=== PATIENT | male | born 1955 | race Caucasian/White ===

== ENCOUNTER 2019-12-15 07:14 | Outpatient (CLI) | payer MEDICARE, OTHER, SELFPAY ==
--- NOTE | ~2019-12-15 | XR_ITS ---
EXAMINATION: XR shoulder RT min 2V DATE: 12/15/2019 07:44 INDICATION: Right arm pain post fall TECHNIQUE: AP internally and externally rotated, AP oblique externally rotated and axillary views of the right shoulder were obtained. COMPARISON: None FINDINGS: Normal alignment. No fracture.Mild glenohumeral osteoarthritis with minimal nonuniform joint space n arrowing but with small marginal osteophytes along the anteroinferior and posterosuperior glenoid. Mi ld acromioclavicular osteoarthritis. Small heterotopic ossicle at the lesser tuberosity insertion of the distal subscapularis tendon. Visualized portions of the lungs are clear. IMPRESSION: No acute osseous abnormality. Reviewed, dictated and finalized at location A. 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
== END 2019-12-15 07:15 | disposition home or self-care (01) ==
PROVIDERS: PCP Internal Medicine; Visit Provider Internal Medicine
DX: M79.601 Pain in right arm (principal)
CPT/HCPCS: 73030

== ENCOUNTER 2019-12-30 00:17 | Outpatient (CLI) | payer MEDICARE, OTHER, SELFPAY ==
[2019-12-30 19:24] LABS: SARS-CoV-2 RNA PCR Negative
== END 2019-12-30 00:18 | disposition home or self-care (01) ==
LOC: ANHCOVIDDT 00:17
PROVIDERS: PCP Internal Medicine; Visit Provider Internal Medicine Critical Care Medicine
DX: Z20.828 Contact with and (suspected) exposure to other viral communicable diseases (principal)
CPT/HCPCS: 87635; C9803; U0003

== ENCOUNTER 2020-01-02 08:50 | Outpatient (CLI) | payer MEDICARE, OTHER, SELFPAY ==
--- NOTE | 2020-02-08 11:37 | WPDSLEEPSTUD ---
Sleep Study Date of Study: 01/02/20 Ordering Provider: Myles Osorio DO Interpreting Physician: Lali Canseco MD Sleep Study Type: Split Polysomnogram Height: 1.78 m Weight: 106.141 kg Body Mass Index: 33.5 Neck Circumference: 48.26 cm [place]: 14 Reason for Sleep Study has CHEMA, machine broke, split night study to re-qualify for treatment Sleep History Bebeto Abrams us a 64 year old man with a history of obstructive sleep apnea, on treatment, and his machine broke. A prior split night study 01/10/2015 with a BMI of 34.4 showed moderate obstructive sleep apnea with an AHI of 17.4, snoring and multiple oxygen desaturations. Optimal pressure at that time was 7 cm. He has daytime sleepiness, loud snoring, rare breathing problmes at night reported to him by others. Occasionally sweats excessively at night, occasionally notices his heart pounding at night. [facility] Past Medical History Medical History (Updated 02/08/20 @ 12:12 by Lali Canseco MD) Essential (primary) hypertension Gastro-esophageal reflux disease without esophagitis Obstructive sleep apnea (~2014) Other hyperlipidemia Sleep apnea in adult Family History Family History Father Cerebrovascular accident Family history of diabetes mellitus in first degree relative Family history of heart disease in male family member before age 55 Mother Family history of diabetes mellitus in first degree relative Other Hypertension Social History Social History Smoking status: Former smoker Second hand tobacco smoke exposure: No Smoking end date: 02/09/02 Alcohol intake: current Medications Home Medications Medication Instructions Recorded Confirmed Type aspirin 81 mg tablet,delayed 81 mg PO DAILY 02/01/19 12/06/19 History release dulaglutide 1.5 mg/0.5 mL 0.5 mg SUB-Q WEEKLY ml 02/01/19 12/06/19 History subcutaneous pen injector hydrochlorothiazide 12.5 mg tablet 12.5 mg PO DAILY 02/01/19 12/06/19 History hydrocodone 5 mg-acetaminophen 325 1 tablet PO Q6H PRN 02/01/19 History mg tablet icosapent ethyl 1 gram capsule 1 gm PO BID cap 02/01/19 12/06/19 History insulin lispro 100 unit/mL See Rx Instructions SUB-Q ONCE 02/01/19 12/06/19 History subcutaneous pen lisinopril 40 mg tablet 40 mg PO DAILY 02/01/19 12/06/19 History lorazepam 0.5 mg tablet 0.5 mg PO DAILY PRN 02/01/19 12/06/19 History metformin 500 mg tablet 1,000 mg PO BID tablet 02/01/19 12/06/19 History nabumetone 750 mg tablet 750 mg PO BID 02/01/19 History scopolamine base 1 mg over 3 days 1 patch TRANSDERM Q3D PRN 02/01/19 12/06/19 History transdermal patch simvastatin 40 mg tablet 40 mg PO DAILY 02/01/19 12/06/19 History hydrocodone 5 mg-acetaminophen 325 1 tablet PO Q12H PRN #20 tablet 02/07/19 12/06/19 Rx mg tablet amlodipine 5 mg tablet 5 mg PO DAILY #90 tablet 01/16/20 Rx pantoprazole 40 mg tablet,delayed 40 mg PO QAM #90 tablet 01/16/20 Rx release Sleep Procedure This test was performed using the [employer] multiple channel system including EOG, EEG, submental EMG, EKG, nasal and oral airflow using thermistors and nasal pressure sensors, chest and abdominal belts for body position data, and pulse oximetry. Video monitoring was also performed. The study was scored using CMS guidelines. After the baseline portion the patient met criteria for a titration. CPAP was started using a medium Airfit F20 full face mask and a heated humidifier. Sleep Architecture Baseline Recording time was 150.2 minutes. Sleep time was 128 minutes. Sleep efficiency was 85.2%. Sleep latency was 9.9 minutes, REM latency is 94 minutes. He woke 9 times and slept 12.3 minutes awake after sleep onset. He had 12.1% stage I sleep, 84% stage II sleep, no stage II sleep and 3.9% stage REM. He spent 10.2% of the baseline portion in the supine position. Titration The recording time was
[2020-02-08 11:58] VITALS: BMI 33.5
--- NOTE | 2020-02-20 16:24 | P.SLEEP_ITS ---
Sleep Study Date of Study: 01/02/20 Ordering Provider: Myles Osorio DO Interpreting Physician: Lali Canseco MD Sleep Study Type: Split Polysomnogram Height: 1.78 m Weight: 106.141 kg Body Mass Index: 33.5 Neck Circumference: 48.26 cm [place]: 14 Reason for Sleep Study CHEMA Sleep History Bebeto Abrams is a 64 year-old man with PMFSH Past Medical History Medical History (Updated 02/08/20 @ 12:12 by Lali Canseco MD) Essential (primary) hypertension Gastro-esophageal reflux disease without esophagitis Obstructive sleep apnea (~2014) Other hyperlipidemia Sleep apnea in adult Family History Family History Father Cerebrovascular accident Family history of diabetes mellitus in first degree relative Family history of heart disease in male family member before age 55 Mother Family history of diabetes mellitus in first degree relative Other Hypertension Social History Social History Smoking status: Former smoker Second hand tobacco smoke exposure: No Smoking end date: 02/09/02 Alcohol intake: current Medications Home Medications Medication Instructions Recorded Confirmed Type aspirin 81 mg tablet,delayed 81 mg PO DAILY 02/01/19 12/06/19 History release dulaglutide 1.5 mg/0.5 mL 0.5 mg SUB-Q WEEKLY ml 02/01/19 12/06/19 History subcutaneous pen injector hydrochlorothiazide 12.5 mg tablet 12.5 mg PO DAILY 02/01/19 12/06/19 History hydrocodone 5 mg-acetaminophen 325 1 tablet PO Q6H PRN 02/01/19 History mg tablet icosapent ethyl 1 gram capsule 1 gm PO BID cap 02/01/19 12/06/19 History insulin lispro 100 unit/mL See Rx Instructions SUB-Q ONCE 02/01/19 12/06/19 History subcutaneous pen lisinopril 40 mg tablet 40 mg PO DAILY 02/01/19 12/06/19 History lorazepam 0.5 mg tablet 0.5 mg PO DAILY PRN 02/01/19 12/06/19 History metformin 500 mg tablet 1,000 mg PO BID tablet 02/01/19 12/06/19 History nabumetone 750 mg tablet 750 mg PO BID 02/01/19 History scopolamine base 1 mg over 3 days 1 patch TRANSDERM Q3D PRN 02/01/19 12/06/19 History transdermal patch simvastatin 40 mg tablet 40 mg PO DAILY 02/01/19 12/06/19 History hydrocodone 5 mg-acetaminophen 325 1 tablet PO Q12H PRN #20 tablet 02/07/19 12/06/19 Rx mg tablet amlodipine 5 mg tablet 5 mg PO DAILY #90 tablet 01/16/20 Rx pantoprazole 40 mg tablet,delayed 40 mg PO QAM #90 tablet 01/16/20 Rx release Sleep Procedure This test was performed using the [employer] multiple channel system including EOG, EEG, submental EMG, EKG, nasal and oral airflow using thermistors and nasal pressure sensors, chest and abdominal belts for body position data, and pulse oximetry. Video monitoring was also performed. The study was scored using CMS guidelines. After the baseline portion the patient met criteria for a titration. Sleep Architecture Baseline Titration Respiratory Analysis Baseline Titration Periodic Limb Movements Baseline Titration Oximetry Data Baseline Titration EEG Profile EEG was unremarkable, no evidence of seizures.
== END 2020-01-02 08:51 | disposition home or self-care (01) ==
LOC: ANHCSM 08:51
PROVIDERS: PCP Internal Medicine; Visit Provider Internal Medicine
DX: G47.33 Obstructive sleep apnea (adult) (pediatric) (principal)
CPT/HCPCS: 95811

== ENCOUNTER 2020-03-08 10:54 | Outpatient (CLI) | payer MEDICARE, SELFPAY ==
--- NOTE | 2020-03-08 11:30 | NEURO_ITS ---
Impression: # Complains of numbness of left hand. Insulin dependent diabetic for over 10 years. # Severe left Carpal Tunnel Syndrome. # No ulnar neuropathy. # Normal needle/EMG exam. Nerve Conduction Studies Anti Sensory Summary Table Stim Site NR Peak (ms) P-T Amp (?V) Site1 Site2 Delta-P (ms) Dist (cm) Jimbo (m/s) Left Median Anti Sensory (2-3nd Digit) NO RESPONSE Wrist NR Wrist 2-3nd Digit 14.0 Wrist 7.3 26.6 Wrist 2-3nd Digit 14.0 Left Radial Anti Sensory (Base 1st Digit) Wrist 2.7 25.9 Wrist Base 1st Digit 2.7 0.0 Left Ulnar Anti Sensory (5th Digit) Wrist 2.6 13.8 Wrist 5th Digit 2.6 14.0 54 Motor Summary Table Stim Site NR Onset (ms) O-P Amp (mV) Site1 Site2 Delta-0 (ms) Dist (cm) Jimbo (m/s) Left Median Motor (Abd Poll Brev) Wrist 10.4 1.1 Elbow Wrist 5.3 33.0 62 Elbow 15.7 2.5 Left Ulnar Motor (Abd Dig Minimi) Wrist 2.7 5.4 A Elbow Wrist 5.5 33.0 60 A Elbow 8.2 4.5 F Wave Studies NR F-Lat (ms) L-R F-Lat (ms) Left Median (Mrkrs) (Abd Poll Brev) 35.67 Left Ulnar (Mrkrs) (Abd Dig Min) 30.08 EMG Side Muscle Nerve Root Ins Act Fibs Amp Dur Recrt Comment Left 1stDorInt Ulnar C8-T1 Nml Nml Nml Nml Nml Left Ext Indicis Radial (Post Int) C7-8 Nml Nml Nml Nml Nml Left Ext Digitorum Radial (Post Int) C7-8 Nml Nml Nml Nml Nml Left BrachioRad Radial C5-6 Nml Nml Nml Nml Nml Left PronatorTeres Median C6-7 Nml Nml Nml Nml Nml Left Abd Poll Brev Median C8-T1 Nml Nml Nml Nml Nml MTDD
== END 2020-03-08 10:55 | disposition home or self-care (01) ==
PROVIDERS: Family Provider Internal Medicine; PCP Internal Medicine; Visit Provider Internal Medicine
DX: R20.0 Anesthesia of skin (principal); G56.02 Carpal tunnel syndrome, left upper limb
CPT/HCPCS: 95886; 95909

== ENCOUNTER 2021-07-09 13:57 | Outpatient (CLI) | payer MEDICARE, SELFPAY ==
--- NOTE | ~2021-07-09 | XR_ITS ---
EXAMINATION: XR ankle RT min 3V DATE: 07/09/2021 14:12 INDICATION: Right ankle pain. TECHNIQUE: 4 views of right ankle were obtained. COMPARISON: Right ankle radiographs 04/16/2005 FINDINGS: Bone alignment is normal. No fracture. There is mild osteoarthritis of the ankle joint and some of the midfoot joints. There are enthesophytes at the posterior and plantar aspects of calcaneal tuberosity. There is medial ankle soft tissue swelling. IMPRESSION: 1. Mild polyarticular osteoarthritis. Reviewed, dictated and finalized at location A.
== END 2021-07-09 13:58 | disposition home or self-care (01) ==
LOC: ANHIMG 14:00
PROVIDERS: PCP Internal Medicine; Visit Provider Internal Medicine
DX: M19.071 Primary osteoarthritis, right ankle and foot (principal)
CPT/HCPCS: 73610

== ENCOUNTER 2021-08-30 06:39 | Emergency (ER) | payer MEDICARE, SELFPAY ==
--- NOTE | ~2021-08-30 | CT_ITS ---
EXAMINATION: CT abdomen pelvis wo con DATE: 08/30/2021 07:41 INDICATION: Right flank pain and abdominal pain. TECHNIQUE: Computed tomography (CT) of the abdomen and pelvis was performed without intravenous contr ast. Automated exposure control and iterative reconstruction technique were employed. The dose-length product was 1282.06 mGy-cm. COMPARISON: 10/17/2015 FINDINGS: Mild dependent atelectasis in bilateral lower lobes and discoid atelectasis in the lingula. Heart siz e is normal. Atherosclerotic coronary artery calcifications. No pericardial or pleural effusion. Diff use hepatic steatosis with focal sparing along the gallbladder fossa. Gallbladder, spleen, pancreas a nd bilateral adrenal glands are normal. Left renal cysts the largest measuring 2.3 cm. No urolithiasi s or hydronephrosis. Bowels including the appendix are normal. Bladder is normal. Prostatomegaly tom uring 4.7 x 3.8 cm. No free intraperitoneal gas or fluid. No pathologically enlarged abdominal or pel samir lymphadenopathy. There are bridging osteophytes at multiple levels in the spine, consistent with diffuse idiopathic skeletal hyperostosis (DISH). IMPRESSION: 1. No acute intra-abdominal/pelvic process. Specifically normal appendix and gallbladder and no uroli thiasis. Reviewed, dictated and finalized at location A. IMPRESSION: 1. No acute intra-abdominal/pelvic process. Specifically normal appendix and ga llbladder and no urolithiasis.
[2021-08-30 06:42] VITALS: BP 152/68; PULSE 85; RESP 20; TEMP 37.2; O2SAT 98
[2021-08-30 06:54] LABS: Basophils Percent Auto 0.4 % (0.2-1.2); Eosinophils Absolute Auto 0.8 K/mm3 (0-0.3); Eosinophils Percent Auto 7.9 % (0-4.4); Hematocrit 43.3 % (42.0-52.0); Hemoglobin 14.4 g/dL (14.0-18.0); Immature Granulocyte Absolute 0.09 K/mm3 (0.00-0.031); Lymphocytes Absolute Auto 1.44 K/mm3 (0.9-3.2); Lymphocytes Percent Auto 15.2 % (18.3-44.2); Mean Corpuscular HGB Conc 33.3 g/dl (32-36); Mean Corpuscular Hemoglobin 29.6 pg (26-34); Mean Corpuscular Volume 88.9 fl (80-100); Mean Platelet Volume 8.5 fl (7.4-10.4); Monocytes Absolute Auto 0.4 K/mm3 (0.1-0.6); Monocytes Percent Auto 3.7 % (2.6-8.5); Neutrophils Absolute Auto 6.8 K/mm3 (1.3-6.7); Neutrophils Percent Auto 71.8 % (45.5-73.1); Platelet Count Result 234 k/mm3 (150-375); Red Blood Count 4.87 M/mm3 (4.6-6.20); Red Cell Distribution Width 14.2 % (11.5-14.5); White Blood Count 9.5 K/mm3 (4.5-10.0)
[2021-08-30 07:05] LABS: Alanine Aminotransferase 27 U/L (6-50); Alkaline Phosphatase 65 U/L (38-126); Anion Gap 10 mmol/L (8-16); Aspartate Amino Transferase 26 U/L (17-59); Bilirubin,Total 0.4 mg/dL (0.2-1.3); Blood Urea Nitrogen 20 mg/dL (9-20); Calcium 9.2 mg/dL (8.4-10.2); Carbon Dioxide 25 mmol/L (22-30); Chloride 106 mmol/L (98-107); Estimated Glomerular Filt Rate > 60; Glucose 115 mg/dL (65-110); Sodium 141 mmol/L (137-145)
[2021-08-30 07:06] LABS: Appearance Urine Clear (Clear); Bilirubin Urine Negative (Negative); Color Urine Yellow (Yellow); Glucose Urine UA 1+ mg/dL (Negative); Ketones Urine Negative (Negative); Leukocyte Esterase Ur Negative LEU/UL (Negative); Nitrate Urine Negative (Negative); Protein Urine Negative (Negative); Urobilinogen Urine 0.2 mg/dL (<2.0)
[2021-08-30 07:21] LABS: Add Urine Microscopic? YES; Bacteria Urine Trace /hpf; Blood Urine Trace-Intact (Negative); Mucus Urine Rare /lpf; RBC Urine 0-2 /hpf (0-2); Squamous Epithelial Cell Urine Rare /hpf (Few); WBC Urine 0-3 /hpf
[2021-08-30 07:31] VITALS: BP 108/58; PULSE 80; RESP 18; O2SAT 96
--- NOTE | 2021-08-30 08:43 | ED.ABDPAIN ---
HPI - Abdominal Pain General Chief Complaint: Abdominal Pain Stated Complaint: rt flank pain Time Seen by Provider: 08/30/21 07:03 Source: patient and RN notes reviewed Mode of arrival: ambulatory Limitations: no limitations History of Present Illness HPI narrative: This is a 65 year old male with history of DM who presents for evaluation of right flank pain. Patient states he developed right flank pain 1 month ago when he went out of town. He states his pain has been constant, and it feels deep . It is located in his right lower back and radiates to right mid abdomen. Seems worse with position. He was evaluated out of town, and he was told he had bladder infection due to microscopic blood in urine. He also reports fatty liver and enlarge spleen. He denies urinary complaints, fever, chills, nausea or vomiting. He has not taken any medication for his pain. Related Data Home Medications Medication Instructions Recorded Confirmed aspirin 81 mg tablet,delayed 81 mg PO DAILY 02/01/19 04/17/21 release (Adult Low Dose Aspirin) dulaglutide 1.5 mg/0.5 mL 0.5 mg subcut WEEKLY 02/01/19 04/17/21 subcutaneous pen injector (Trulicity) hydrochlorothiazide 12.5 mg tablet 12.5 mg PO DAILY 02/01/19 04/17/21 icosapent ethyl 1 gram capsule 1 gm PO BID 02/01/19 04/17/21 (Vascepa) insulin lispro 100 unit/mL See Rx Instructions subcut ONCE 02/01/19 04/17/21 subcutaneous pen (Humalog KwikPen (U-100) Insulin) lisinopril 40 mg tablet 40 mg PO DAILY 02/01/19 04/17/21 lorazepam 0.5 mg tablet 0.5 mg PO DAILY PRN 02/01/19 04/17/21 metformin 500 mg tablet 1,000 mg PO BID 02/01/19 04/17/21 scopolamine base 1 mg over 3 days 1 patch transdermal Q3D PRN 02/01/19 04/17/21 transdermal patch (Transderm-Scop) simvastatin 40 mg tablet 40 mg PO DAILY 02/01/19 04/17/21 Allergies Allergy/AdvReac Type Severity Reaction Status Date / Time No Known Allergies Allergy Verified 08/30/21 06:48 Review of Systems Review of Systems: CONSTITUTIONAL: Denies fever, chills, or sweats. EYES: Denies visual changes, redness, or discharge. ENT: Denies rhinorrhea, congestion, sore throat, or otalgia. CARDIOVASCULAR: Denies chest pain, palpitations, or edema. RESPIRATORY: Denies cough or dyspnea. GASTROINTESTINAL: reports abdominal pain; denies nausea, vomiting, or diarrhea. GENITOURINARY: Denies dysuria or hematuria. SKIN: Denies rash or itching. MUSCULOSKELETAL: reports back pain; denies joint pain, or myalgia. NEUROLOGIC: Denies headache, numbness, or weakness. PSYCHIATRIC: Denies anxiety or depression. All systems reviewed & are unremarkable except as noted in HPI and below PMFSH Past Medical History Medical History Essential (primary) hypertension Gastro-esophageal reflux disease without esophagitis Obstructive sleep apnea (~2014) Other hyperlipidemia Sleep apnea in adult Family History Family History Father Cerebrovascular accident Family history of diabetes mellitus in first degree relative Family history of heart disease in male family member before age 55 Mother Family history of diabetes mellitus in first degree relative Other Hypertension Social History Social History Smoking status: Former smoker Second hand tobacco smoke exposure: No Smoking end date: 02/09/02 Alcohol intake: current Exam Const: Nutritional Appearance: well nourished and obese Orientation/consciousness: patient oriented x3 Limitations: no limitations HENMT: Head: normal to inspection Eyes: EOM: EOMs intact bilaterally Neck: Neck: normal visual inspection Chest: Chest palpation & inspection: normal inspection of the chest Resp: Effort & Inspection: normal respiratory effort Auscultation: clear to auscultation bilaterally Cardio: Rate: regular rate Rhythm: regular rh
[2021-08-30 09:22] VITALS: BP 118/56; PULSE 77; RESP 19; O2SAT 97
== END 2021-08-30 09:23 | disposition home or self-care (01) ==
PROVIDERS: Emergency Medicine; Emergency Provider General Practice; PCP Internal Medicine
DX: R10.9 Unspecified abdominal pain (principal); Z79.82 Long term (current) use of aspirin; Z79.4 Long term (current) use of insulin; Z79.84 Long term (current) use of oral hypoglycemic drugs; I10 Essential (primary) hypertension; K21.9 Gastro-esophageal reflux disease without esophagitis; G47.33 Obstructive sleep apnea (adult) (pediatric); E78.49 Other hyperlipidemia; G47.30 Sleep apnea, unspecified; Z87.891 Personal history of nicotine dependence
CPT/HCPCS: 36415; 74176; 80053; 81001; 85025; 96365; 99284; J0131

== ENCOUNTER 2024-05-12 00:44 | Day surgery (SDC) | payer MEDICARE, SELFPAY ==
[2024-05-09 12:30] VITALS: BMI 34.0
--- OUTSIDE RECORDS SUMMARY | 2024-05-12 00:46 | XMS_ITS | Encounter Summary ---
Author Organization [facility] Address [address] [place] [address] Care Team Providers Care Side Guider Name Role Phone Myles Osorio MD Primary Care Provider [phone] Encounter Details Date Type Department Care Team (Late st Contact Info) Description 03/21/2020 Prep for Procedure [facility] [address] [place], [place] [id number] Cristino Cox MD [address] [place] [address], [address] [place], [place] [id number] Social History Tobacco Use Types Packs/Day Years Used Date Smoking Tobacco: Former Cigarettes Q uit: 1989 Sex and Gender Information Value Date Recorded Sex Assigned at Not on file Legal Sex Male 6:45 PM CDT Gender Identity Not on file Sexual Orientation Not on file COVID-19 Exposure Response Date Recorded In the last month, have you been in contact with someone who was confirmed or suspected to have Coronavirus / COVID-19? No / Unsure 03/21/2020 8:11 AM DRUG SAFETY SCIENTIST documented as of this encounter Plan of Treatment Not on file documented as of this encounter Results * PRE-SURGICAL/PRE-PROCEDURE CORONAVIRUS (COVID 19) (03/25/2020 8:57 AM DRUG SAFETY SCIENTIST) CORONAVIRUS SARS COV 2 PCR (RESP) NOT DETECTED NOT DETECTED 03/26/2020 2:31 PM DRUG SAFETY SCIENTIST [facility] Comment: A Not Detected (negative) test result for this test means that SARS- CoV-2 RNA was not present in the specimen above the limit of detection. A negative result does not rule out the possibility of COVID-19 and should not be used as the sole basis for treatment or patient management decisions. If COVID-19 is still suspected, based on exposure history together with other clinical findings, re-testing should be considered in consultation with public health authorities. Laboratory test results should always be considered in the context of clinical observations and epidemiological data in making a final diagnosis and patient management decisions. Please review the Fact Sheets and FDA authorized labeling available for health care providers and patients using the following websites: [email or web address]/fact-[email or web address]/ fact-sheet2 This test has been authorized by the FDA under an Emergency Use Authorization (EUA) for use by authorized laboratories. Due to the current public health emergency, [facility] is receiving a high volume of samples from a wide variety of swabs and media for COVID-19 testing. In order to serve patients during this public health crisis, samples from appropriate clinical sources are being tested. Negative test results derived from specimens received in non-commercially manufactured viral collection and transport media, or in media and sample collection kits not yet authorized by FDA for COVID-19 testing should be cautiously evaluated and the patient potentially subjected to extra precautions such as additional clinical monitoring, including collection of an additional specimen. Methodology: Nucleic Acid Amplification Test (NAAT) includes RT-PCR or TMA Additional information about COVID-19 can be found at the [facility] website: [email or web address]/[email or web address]. Test performed at [facility] [id number] [place] [id number] Director: BALAJI THURSTON DO,MPH FIRST TEST NO 03/25/2020 8:49 AM [facility] EMPLOYED IN HEALTHCARE NO 03/25/2020 8:49 AM DRUG SAFETY SCIENTIST [facility] SYMPTOMATIC DEFINED BY CDC NO 03/25/2020 8:49 AM [facility] DATE OF SYMPTOM ONSET UNKNOWN 03/25/2020 9:48 AM [facility] HOSPITALIZATION STATUS NO 03/25/2020 8:49 AM DRUG SAFETY SCIENTIST [facility] PATIENT IN ICU NO 03/25/2020 8:49 AM DRUG SAFETY SCIENTIST [facility] RESIDENT OF CONGREGATE CARE NO 03/25/2020 8:49 AM DRUG SAFETY SCIENTIST [facility] NO 03/25/2020 9:48 AM DRUG SAFETY SCIENTIST [facility] PATIENT'S RACE WHITE OR 03/25/2020 8:49 AM DRUG SAFETY SCIENTIST [facility] ETHNICITY NONHISPANIC 03/25/2020 8:49 AM DRUG SAFETY SCIENTIST [facility] SOURCE (QST) NASOPHARYNGEAL SWAB 03/25/2020 8:49 AM DRUG SAFETY SCIENTIST [facility] NASOPHARYNGEAL SWAB / Unknown 03/25/2020 8:57 AM DRUG SAFETY SCIENTIST us Cristino Cox MD MICROBIOLOGY - GENERAL ORDERABLE S Final Result Performing Organization Address City/State/[facility] Co de Phone Number [facility] [address] [place] [address], [place] [address], documented in this encounter Visit Diagnoses Diagnosis Pre-op testing- Primary Preoperative examination, unspecified documented in this encounter Additional Health Concerns Infection Onset Date Last Indicated Resolved Time COVID-19 Rule Out 03/25/2020 03/25/2020 03/26/2020 2:31 PM DRUG SAFETY SCIENTIST documented as of this encounter Care Teams Side Guider Relationship Specialty Start Date End Date Myles Osorio MD [address] [place] [address] [place] [address] PCP - General INTERNAL MEDICINE 01/17/20 documented as of this encounter
--- OUTSIDE RECORDS SUMMARY | 2024-05-12 00:46 | XMS_ITS | Clinical Summary ---
Author Organization [facility] Address [address] [place] [address] Care Team Providers Care [employer] Name Role Phone Myles Osorio MD Primary Care Provider [phone] Allergies No known active allergies Medications Continuous Blood Gluc Sensor (DEXCOM G6 SENSOR) Misc Change every 10 days 10/24/2019 Active Continuous Blood Gluc Transmit (DEXCOM G6 TRANSMITTER) Misc Use as directed to monitor glucose 10/24/2019 Active icosapent ethyl (VASCEPA) 1 G capsule TAKE 2 CAPSULES BY MOUTH 2 TIMES DAILY 12/14/2019 Active hydroCHLOROthia zide 12.5 MG tablet TAKE ONE TABLET BY MOUTH EVERY DAY 09/26/2019 Active Insulin Disposable Pump (OMNIPOD DASH 5 PACK PODS) Misc Change pod every 1.5 days 10/10/2019 Active simvastatin 40 MG tablet TAKE ONE TABLET BY MOUTH DAILY 10/09/2011 Active metFORMIN ER 500 MG 24 hr tablet TAKE 2 TABLETS BY MOUTH TWICE DAILY 10/09/2011 Active lisinopril 40 MG tablet TAKE 1 TABLET BY MOUTH DAILY 09/26/2019 Active pantoprazole EC 40 MG tablet Take 1 tablet (40 mg total) by mouth daily. Active amLODIPine 5 MG tablet Take 2 tablets (10 mg total) by mouth daily. Active aspirin EC (ASPIRIN EC) 81 MG tablet Take 1 tablet (81 mg total) by mouth daily. Active allopurinol (ZYLOPRIM) 300 MG tablet Take 1 tablet (300 mg total) by mouth daily. Active dapagliflozin (FARXIGA) 10 MG tablet Take 1 tablet (10 mg total) by mouth daily. Active nitrofurantoin, macrocrystal-mo nohydrate, (MACROBID) 100 MG capsule Take 1 capsule (100 mg total) by mouth 2 (two) times daily. Active tirzepatide (MOUNJARO) 5 MG/0.5ML injectionIndica tions:Diabetes Mellitus Indications: Diabetes Active nabumetone (RELAFEN) 750 MG tablet Take 1 tablet (750 mg total) by mouth 2 (two) times daily. Active ibuprofen (MOTRIN) 600 MG tablet Take 1 tablet (600 mg total) by mouth every 6 (six) hours as needed for Pain. 30 tablet 07/01/2023 Active Active Problems Problem Noted Date Diagnosed Date Right shoulder pain 01/17/2020 Social History Tobacco Use Types Packs/Day Years Used Date Smoking Tobacco: Former Cigarettes Q uit: 1989 Smokeless Tobacco: Never Sex and Gender Information Value Date Recorded Sex Assigned at Not on file Legal Sex Male 6:45 PM CDT Gender Identity Not on file Sexual Orientation Not on file Last Filed Vital Signs Vital Sign Reading Time Taken Comments Blood Pressure 127/55 07/01/2023 10:00 PM CDT Pulse 83 07/01/2023 8:36 PM CDT Temperature 36.3 C (97.4 F) 07/01/2023 8:36 PM CDT Respiratory Rate 18 07/01/2023 8:36 PM CDT Oxygen Saturation 92% 07/01/2023 10:00 PM CDT Inhaled Oxygen Concentration - - Weight 108.9 kg (240 lb) 07/01/2023 8:36 PM CDT Height 175.3 cm (5' 9 ) 07/01/2023 8:36 PM CDT Body Mass Index 35.44 07/01/2023 8:36 PM CDT Plan of Treatment Health Maintenance Due Date Last Done Comments Colorectal Cancer Screening Colonoscopy (10 Years) 1955 Hepatitis C 1972 AAA SCREENING 12/23/2019 Annual Medicare Wellness Visit 12/23/2019 COVID-19 Vaccine ( season) 2023 01/07/2023, 12/11/2021, 12/07/2020, Additional history exists Influenza Adult (#1) 2023 02/09/2022, 01/09/2021, 01/11/2020 DTaP, Tdap and Td Vaccines (2 - Td or Tdap) 12/12/2031 12/11/2021 Zoster Vaccines Completed 07/04/2020, 02/22/2020 RSV Immunization or 60+ Years Completed 01/07/2023 Pneumococcal Vaccine: 65+ Years Completed 06/15/2023, 01/11/2020 Meningococcal B Vaccine Aged Out No l onger eligible based on patient's age to complete this topic Meningococcal Vaccine Aged Out No ciarra eliana eligible based on patient's age to complete this topic RSV Immunizations Under 20 Months Aged Out No longer eligible based on patient's age to complete this topic Medical Devices Implanted Type [employer] Licensee Device Identifier Shelf Expiration Date Model / Serial / Lot Pump Pump Description:Insulin pump Insurance [facility] Care Teams [employer]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
--- OUTSIDE RECORDS SUMMARY | 2024-05-12 00:46 | XMS_ITS | Referral Summary ---
Author Organization [address] [facility] Address [address] [place] [id number] Care Team Providers Care Wire Taper Name Role Phone Myles Osorio MD Primary Care Provider [phone] Encounters Date Type Department Care Team Description 03/29/2024 Telephone [facility] [address] [id number] Verna Quiles MD from Last 3 Months Allergies No known active allergies Medications aspirin 81 mg tablet Take one by mouth one time per day 0 0 11/11/[address] (PROTONIX) 40 mg EC tablet Take 1 tablet (40 mg total) by mouth daily 1 11/09/19 18 Active DEXCOM G6 TRACK ANNOUNCER misc Use as directed to monitor glucose 1 each 06/09/19 19 Active blood glucose diagnostic (ONETOUCH ULTRA TEST) stripIndications :Type 2 diabetes mellitus with hyperglycemia, with long-term current use of insulin ([facility]) Use to test glucose 3 times daily 300 each 1 08/06/19 19 Active BD ULTRA-FINE MINI PEN NEEDLE 31 gauge x 3/16 needleIndication s:Type 2 diabetes mellitus with hyperglycemia, with long-term current use of insulin (H[facility]) Use with insulin 4 times daily 400 each 1 08/06/19 19 Active lancets (ONETOUCH DELICA LANCETS) 33 gauge miscIndications: Type 2 diabetes mellitus with hyperglycemia, with long-term current use of insulin ([facility]) Use to test glucose 3 times daily 300 each 1 08/06/19 19 Active HYDROcodone-acet aminophen (NORCO) 5-325 mg per tablet 02/08/20 19 Active meloxicam (MOBIC) 15 mg tablet Take 1 tablet (15 mg total) by mouth daily 01/11/20 20 Active amLODIPine (NORVASC) 10 mg tablet Take 1 tablet (10 mg total) by mouth daily 06/07/19 21 Active allopurinoL (ZYLOPRIM) 300 mg tablet 10/30/19 21 Active nabumetone (RELAFEN) 750 mg tablet TAKE 1 TABLET BY MOUTH TWICE A DAY WI8TH FOOD 08/28/19 21 Active BinaxNOW COVID-19 Ag Self Test kit Use as Directed on the Package 12/12/19 22 Active Omnipod Dash Pods, Gen 4, cartridgeIndicat ions:Type 2 diabetes mellitus with hyperglycemia, with long-term current use of insulin ([facility]),Insulin pump status CHANGE POD EVERY 1 AND 1/2 DAYS 60 each 3 04/28/19 24 Active insulin regular U-500 (HumuLIN R U-500) 500 unit/mL CONCENTRATED vial for injection INJECT SUBCUTANEOUSLY UP TO 0.5ML DAILY VIA INSULIN PUMP 60 mL 3 06/15/19 24 Active Farxiga 10 mg tablet TAKE 1 TABLET BY MOUTH DAILY 90 tablet 3 07/02/19 24 Active ibuprofen (ADVIL,MOTRIN) 600 mg tablet Take 1 tablet (600 mg total) by mouth every 6 (six) hours as needed 07/01/19 24 Active ibuprofen (ADVIL,MOTRIN) 600 mg tablet Take by mouth every 6 (six) hours as needed 07/02/19 24 Active nitrofurantoin monohydrate (MACROBID) 100 mg capsule Take 1 capsule (100 mg total) by mouth 2 (two) times a day Active icosapent ethyL (VASCEPA) 1 gram capsule Take 2 capsules (2 g total) by mouth 2 (two) times a day 360 capsule 1 08/05/19 24 Active metFORMIN XR (GLUCOPHAGE XR) 500 mg 24 hr tabletIndication s:Type 2 diabetes mellitus with hyperglycemia, with long-term current use of insulin ([facility]) TAKE 2 TABLETS BY MOUTH TWICE DAILY 360 tablet 3 11/03/19 24 Active Dexcom G6 Sensor deviceIndication s:Type 2 diabetes mellitus with hyperglycemia, with long-term current use of insulin ([facility]) CHANGE EVERY 10 DAYS 9 each 3 11/12/19 24 Active Mounjaro 5 mg/0.5 mL pen injectorIndicati ons:Type 2 diabetes mellitus with hyperglycemia, with long-term current use of insulin ([facility]) INJECT THE CONTENTS OF ONE PEN SUBCUTANEOUSLY WEEKLY DIRECTED 6 mL 3 12/30/19 24 Active LORazepam (ATIVAN) 0.5 mg tablet TAKE 1 TABLET BY MOUTH ONCE DAILY NEEDED FOR ANXIETY 11/19/19 Active methocarbamoL (ROBAXIN) 750 mg tablet TAKE 1 TABLET BY MOUTH 3 TIMES A DAY NEEDED FOR MUSCLE SPASMS 11/18/19 24 Active insulin U-500 syringe-needle 1/2 mL 31 gauge x 15/64 syringeIndicatio ns:Type 2 diabetes mellitus with hyperglycemia, with long-term current use of insulin ([facility]) Use to inject U500 insulin twice daily if pump failure 100 each 3 01/25/20 24 Active blood-glucose transmitter (Dexcom G6 Transmitter) deviceIndication s:Type 2 diabetes mellitus with hyperglycemia, with long-term current use of insulin ([facility]) Change transmitter every 90 days 1 each 3 02/05/20 24 Active hydroCHLOROthiaz vinicio 12.5 mg tabletIndication s:Type 2 diabetes mellitus with hyperglycemia, with long-term current use of insulin ([facility]) TAKE 1 TABLET BY MOUTH DAILY 90 tablet 3 02/16/19 25 Active lisinopriL (PRINIVIL,ZESTRI L) 40 mg tabletIndication s:Type 2 diabetes mellitus with hyperglycemia, with long-term current use of insulin ([facility]) TAKE 1 TABLET BY MOUTH DAILY 90 tablet 3 02/16/19 25 Active simvastatin (ZOCOR) 40 mg tabletIndication s:Type 2 diabetes mellitus with hyperglycemia, with long-term current use of insulin ([facility]) TAKE 1 TABLET BY MOUTH DAILY 90 tablet 3 02/16/19 25 Active Active Problems Problem Noted Date Diagnosed Date Class 2 severe obesity due t o excess calories with serious comorbidity and body mass index (BMI) of 35.0 to 35.9 in adult 12/18/2022 Assessment & Plan (12/18/2022 10:13 AM HANDHOLE MACHINE OPERATOR): Will resume going to gym as he's back/done with traveling. mounjaro 2.mg weekly sent. Discussed healthy diet and importance of regular physical activity (20- 30min/day, 150min/wk). Insulin pump status 12/30/2018 Assessment & Plan (01/25/2024 3:38 PM HANDHOLE MACHINE OPERATOR): Green U500 insulin syringes were sent to [facility] in case of pump failure--start injection 55 units twice daily. May need to adjust dose up/down. Current medications: Metformin XR 1000 mg daily with meals Farxiga 10 mg Mounjaro 5mg weekly Omnipod Dash insulin pump with U500 insulin BR 12a 1.1, 6a 1.3, 6p 1.6 CR 10 CF 35 Target 110 AIT 5 hrs Assessment & Plan (11/02/2023 9:21 AM CDT): No pump setting changes at this time. Assessment & Plan (04/28/2023 9:11 AM CDT): No pump setting changes at this time. Assessment & Plan (12/18/2022 10:13 AM HANDHOLE MACHINE OPERATOR): No pump setting changes at this time. Assessment & Plan (07/01/2022 10:18 AM CDT): No pump setting changes at this time. Set up new Omnipod Dash settings. Assessment & Plan (12/12/2021 11:23 AM CDT): Lower 12a BR to 1.1. Assessment & Plan (11/29/2020 3:58 PM CDT): In case of pump failure and you are off of the pump for more than 12 hours: Start taking : Tresiba 120 units every 24 hours Take Fiasp: 30 units with each meal Assessment & Plan (07/19/2020 3:02 PM CDT): Lower IC to 13 Lower SF to 38 Change AI to 5 Assessment & Plan (10/28/2019 12:23 PM CDT): Increase TD basal to 104.85. Change IC to 6 Assessment & Plan (05/20/2019 11:11 AM CDT): Will try upload on Thursday Assessment & Plan (03/20/2019 11:11 AM HANDHOLE MACHINE OPERATOR): Reduce SF to 18, lower target to 100. Assessment & Plan (12/30/2018 2:39 PM HANDHOLE MACHINE OPERATOR): Insulin pump setting calculations as follows: Basal 4.0 x 24 hour Bolus: IC calculated to 2 but he is now exercising and watching carbs so will change to 10 to start. SF 20 T 120 AI 4 Hyperlipidemia associated with type 2 diabetes edwin mora 06/23/2017 Assessment & Plan (01/25/2024 3:17 PM HANDHOLE MACHINE OPERATOR): Chronic problem. Currently taking Simvastatin 40mg & vascepa 2gm daily. Last lipid panel: 07/30/23 LDL=24, WW=127 Assessment & Plan (11/02/2023 8:56 AM CDT): Chronic problem. Currently taking Simvastatin 40mg & vascepa 2gm daily. Last lipid panel: 07/30/23 LDL=24, RE=323 Assessment & Plan (04/28/2023 9:00 AM CDT): Chronic problem. Currently taking Simvastatin 40mg & vascepa 2gm daily. Assessment & Plan (12/18/2022 10:13 AM HANDHOLE MACHINE OPERATOR): Chronic problem. Currently taking Simvastatin 40mg & vascepa 2gm daily. Assessment & Plan (07/01/2022 9:45 AM CDT): Chronic problem. Improved on current Simvastatin 40mg & vascepa 2gm bid. Last lipid panel: 05/07/21 LDL=24, KI=046. Will update labs today. Verified that he uses [facility]. Aware to check results/results letter in [facility]. Will contact by phone if needed. Assessment & Plan (12/12/2021 11:24 AM CDT): Chronic problem. On statin therapy, no changes. Assessment & Plan (05/07/2021 10:57 AM CDT): With elevated TG Continue Simvastatin and Vascepa Low chol low fat diet, exercise Assessment & Plan (11/29/2020 3:58 PM CDT): Lipid goals , LDL under 80 Continue Simvastatin Assessment & Plan (07/19/2020 3:02 PM CDT): Continue statin and Vascepa Assessment & Plan (01/26/2020 10:19 AM HANDHOLE MACHINE OPERATOR): He will have lipid panel done in next 48 hours fasting to determine if this was spurious result. Assessment & Plan (10/28/2019 12:25 PM CDT): Continue statin and Vascepa. Will check lipid panel today Assessment & Plan (08/02/2019 1:03 PM CDT): Goal of treatment , LDL cholesterol less than 100 ( less than 70 in patients with history of heart attacks and / or strokes ) NonHDL cholesterol ( total cholesterol minus HDL cholesterol ) goal less than 130 ( less than 100 in patients with history of heart attacks and / or strokes ) Low cholesterol, low fat diet was discussed and advised. Daily exercise On statin therapy and Vascepa Assessment & Plan (05/20/2019 11:11 AM CDT): At goal on current medications. Continue statin therapy. Assessment & Plan (03/20/2019 11:11 AM HANDHOLE MACHINE OPERATOR): Trigs elevated. Focus on diet, exercise and glycemic control Assessment & Plan (11/18/2018 10:11 AM CDT): Continue statin therapy. Needs to Improve glycemic control in order to address trigs. Assessment & Plan (06/08/2018 9:50 AM CDT): Goal of treatment , LDL cholesterol less than 100 ( less than 70 in patients with history of heart attacks and / or strokes ) NonHDL cholesterol ( total cholesterol minus HDL cholesterol ) goal less than 130 ( less than 100 in patients with history of heart attacks and / or strokes ) Low cholesterol, low fat diet was discussed and advised. Daily exercise On statin therapy Stop Fenofibrate Start Vascepa Assessment & Plan (11/17/2017 9:34 AM CDT): Goal of treatment , LDL cholesterol less than 100 ( less than 70 in patients with history of heart attacks and / or strokes ) NonHDL cholesterol ( total cholesterol minus HDL cholesterol ) goal less than 130 ( less than 100 in patients with history of heart attacks and / or strokes ) Low cholesterol, low fat diet was discussed and advised. Daily exercise On statin therapy Assessment & Plan (06/23/2017 2:28 PM CDT): Goal of treatment , LDL cholesterol less than 100 ( less than 70 in patients with history of heart attacks and / or strokes ) NonHDL cholesterol ( total cholesterol minus HDL cholesterol ) goal less than 130 ( less than 100 in patients with history of heart attacks and / or strokes ) Low cholesterol, low fat diet was discussed and advised. Daily exercise On statin therapy Carpal tunnel syndrome 01/17/2014 Overview (05/15/2016): Carpal tunnel syndrome Type 2 diabetes mellitus wit h hyperglycemia, with long-term current use of insulin 05/05/2013 Overview (05/16/2016): [facility] Assessment & Plan (01/25/2024 3:39 PM HANDHOLE MACHINE OPERATOR): Chronic problem. A1c at goal but tim slightly from 6.% 11/02/23 to now 6.9% without hypoglycemia. No changes at this time. Green U500 insulin syringes were sent to [facility] in case of pump failure--start injection 55 units twice daily. May need to adjust dose up/down. Current medications: Metformin XR 1000 mg daily with meals Farxiga 10 mg Mounjaro 5mg weekly Omnipod Dash insulin pump with U500 insulin BR 12a 1.1, 6a 1.3, 6p 1.6 CR 10 CF 35 Target 110 AIT 5 hrs UTD on labs. UTD on DM eye exam (04/17/23) Strive for regular exercise (30min most days) and diet (get at least 4-5 servings of fruit and veggies daily, avoid processed foods, increase lean protein intake and decrease carb portions as well as fruit juices, regular soda & desserts). Watch carbs and simple sugars. Check the blood sugar dexcom G6. Check the feet daily for skin breakdown and infection. Assessment & Plan (11/02/2023 9:24 AM CDT): Chronic problem. A1c at goal & improved from 7.1% 07/30/23 to now 6.7% without hypoglycemia. No changes at this time. Current medications: Metformin XR 1000 mg daily with meal Farxiga 10 mg Mounjaro 5mg weekly Omnipod Dash insulin pump with U500 insulin BR 12a 1.1, 6a 1.3, 6p 1.6 CR 10 CF 35 Target 110 AIT 5 hrs UTD on labs. UTD on DM eye exam (04/17/23) Strive for regular exercise (30min most days) and diet (get at least 4-5 servings of fruit and veggies daily, avoid processed foods, increase lean protein intake and decrease carb portions as well as fruit juices, regular soda & desserts). Watch carbs and simple sugars. Check the blood sugar dexcom G6. Check the feet daily for skin breakdown and infection. Assessment & Plan (07/30/2023 10:02 AM CDT): Chronic, with a little higher hemoglobin A1c Emphasized to Mr. Abrams the need for him to bolus with meals, entering carbs Restart exercise program Continue pump at current settings Continue Mounjaro and metformin Assessment & Plan (04/28/2023 9:11 AM CDT): Chronic problem. A1c at goal & improved from 7.2% 12/2022 to now 6.9%. Current medications: Metformin XR 500 mg 2 tabs twice daily with meals Farxiga 10 mg Mounjaro 2.5mg weekly & then increase to 5mg weekly Omnipod with U500 insulin BR 12a 1.1, 6a 1.3, 6p 1.6 CR 10 CF 35 Target 110 AIT 5 hrs UTD on labs. UTD on DM eye exam (04/17/23) Strive for regular exercise (30min most days) and diet (get at least 4-5 servings of fruit and veggies daily, avoid processed foods, increase lean protein intake and decrease carb portions as well as fruit juices, regular soda & desserts). Watch carbs and simple sugars. Check the blood sugar dexcom. Check the feet daily for skin breakdown and infection. Assessment & Plan (12/18/2022 10:13 AM HANDHOLE MACHINE OPERATOR): Chronic problem. A1c tim from 6.5% to 7.2%. has been traveling all summer. Plans to return to gym now that he's back in town. Will switch from Trulicity to Mounjaro. 2.5mg sample box given to him. Sent 5mg Mounjaro to [facility]. Aware to call/let us know if cost prohibitive or difficulty obtaining. Please watch your blood sugars on your Dexcom while changing medications. No pump changes at this time. Current medications: Metformin XR 500 mg 2 tabs twice daily with meals Farxiga 10 mg Mounjaro 2.5mg weekly & then increase to 5mg weekly Omnipod with U500 insulin BR 12a 1.1, 6a 1.3, 6p 1.6 CR 10 CF 35 Target 110 AIT 5 hrs UTD on labs. UTD on DM eye exam (03/2022) Strive for regular exercise (30min most days) and diet (get at least 4-5 servings of fruit and veggies daily, avoid processed foods, increase lean protein intake and decrease carb portions as well as fruit juices, regular soda & desserts). Watch carbs and simple sugars. Check the blood sugar dexcom. Check the feet daily for skin breakdown and infection. Assessment & Plan (07/01/2022 10:20 AM CDT): Chronic problem. At goal; well controlled. Would like to switch from Trulicity to Mounjaro. To send [facility] message or call when he starts last Trulicity pen. We will then send in the Mounjaro. Will sign release so we can get a copy of lab results from Dr Green office. UTD on DM eye exam. No changes at this time. Current medications: Metformin XR 500 mg 2 tabs twice daily with meals Farxiga 10 mg Trulicity 4.5 mg weekly Omnipod with U500 insulin BR 12a 1.1, 6a 1.3, 6p 1.6 CR 10 SF 35 Target 110 AIT 5 hrs Exercises regularly. Strive for regular exercise (30min most days) and diet (get at least 4-5 servings of fruit and veggies daily, avoid processed foods, increase lean protein intake and decrease carb portions as well as fruit juices, regular soda & desserts). Watch carbs and simple sugars. Check the feet daily for skin breakdown and infection. Assessment & Plan (12/12/2021 12:19 PM CDT): Chronic problem, improving. Trending low normal in the morning so slightly lowered BR at that time, otherwise continue same. Assessment & Plan (05/07/2021 10:58 AM CDT): Hba1c was Lab Results Component Value Date HGBA1C 7.2 05/07/2021 today, indicating suboptimal DM control Goal Hba1c and blood glucose explained Diet and exercise were advised Prevention and treatment of hyypoglcyemia were discussed with the patient Blood glucose monitoring : DEXCOM Adjustment to medications: Continue pump at current settings Continue Metformin, Trulicity Assessment & Plan (11/29/2020 3:57 PM CDT): Hba1c was Lab Results Component Value Date HGBA1C 7.8 11/29/2020 today, indicating suboptimal DM control Goal blood glucose levels : 110-150 Target Hba1c : 7 BG monitoring : DEXCOM Prevention and treatment of hyypoglcyemia discussed. Pump settings adjusted: Your pump settings as as follows: Basal MN 1.2, 0600 1.3, 6:00 pm 1.6 IC 10 SF35 T 110 AI 6 Assessment & Plan (07/19/2020 3:04 PM CDT): A1c 9.8. Worsening. Main issue r/t poorly controlled BG pc. Importance of being more compliant with diet was emphasized. Will adjust pump settings. Assessment & Plan (05/10/2020 10:02 AM CDT): Hba1c was Lab Results Component Value Date HGBA1C 9.8 05/10/2020 today, indicating very poo DM control Goal blood sugars in the 120-150 range , with Hb1c under 7.0 % was explained 1800 calorie, consistent carb diet recommended. No more than 30-45 grams of carbs per meal recommended, as well as avoiding high concentrated sweet drinks . 25-45 min daily exercise, combining both aerobic and resistance exercise recommended. The need to monitor blood glucose before meals and bedtime was discussed. Prevention and treatment of hyypoglcyemia discussed. Pump settings adjusted: Basal rates : 12 am 1.2 6 am 1.3 6pm 1.4 Insulin to carb ratio: 15 Sensitivity factor: 40 Targer B Active insulin time: 6h Increase Trulicity to 4.5 mg weekly Assessment & Plan (03/06/2020 3:45 PM HANDHOLE MACHINE OPERATOR): Will send rx for U500 vial to local pharmacy. He will belt picker 1 vial with free voucher. Return on and U100 pump settings will be adjusted for U500. Follow up after one week for download and adjustment. As he will only be using ~ 0.5 ml per day, pods should now last him 3 days with volume of 1.5 ml. Settings projected as follows. Basal: 0.8 units per hour IC 25 SF 75 T 110 AI 6 Assessment & Plan (01/26/2020 3:35 PM HANDHOLE MACHINE OPERATOR): A1c 9.1 worsening. Basal > bolus. There are some basal BG that are in low 100's. Will intensify bolus settings and have return in 4 weeks. Advised to avoid front of leg sites and rotate abd sites. If pattern is still elevated and TDD > 200, will consider U500. Assessment & Plan (10/28/2019 12:25 PM CDT): A1c worsening at 8.9. Not compliant with diet or bolusing for all carbs. Both baseline and pc excursions above goal. Will increase basal rates and intensify IC however he needs to be sure he is bolusing for all carbs consumed. Needs more compliance with diet. Assessment & Plan (08/02/2019 1:01 PM CDT): Hba1c was Lab Results Component Value Date HGBA1C 8.5 08/02/2019 today, indicating inadequate DM control 1800 calorie, consistent carb diet recommended. No more than 30-45 grams of carbs per meal recommended, as well as avoiding high concentrated sweet drinks . 25-45 min daily exercise, combining both aerobic and resistance exercise recommended. The need to monitor blood glucose before meals and bedtime was discussed. Prevention and treatment of hyypoglcyemia discussed. Insulin dose: Continue current regimen Continue Metformin and Trulicity New Basal rates: 12am 4.25 6am4.3 1130am 4.45 3pm 4.25 630pm 4.45 10pm 4.25 IC 7.0 ISF 18 You have to bolus with each meal, entering carbs and blood sugar readings for the machine to calculate your bolus. Assessment & Plan (05/20/2019 11:13 AM CDT): According to pt report, no hypoglycemia. Most BG in acceptable range. No issues with using pump. Will try on Thursday to obtain upload for Omni pod and Dexcom and will make changes to settings based on results. He will schedule next eye exam for summer. Assessment & Plan (03/20/2019 11:13 AM HANDHOLE MACHINE OPERATOR): A1c 9.1. No change. Not being attentive to types of food eating, not as much exercise recently. Not bolusing for all carbs so difficult to determine exact pattern. Education provided to bolus for all carbs, BG at least tid. Will adjust bolus settings. Assessment & Plan (01/17/2019 4:19 PM HANDHOLE MACHINE OPERATOR): Demonstrates appropriate ability to fill and insert infusion set. Understands concepts of basal vs. Bolus and is able to enter BG and carbs into pump. Has been provided with contact information for insulin pump instruments sales representative and how to reach our office after hours if any issues arise with BG. Has injectable basal insulin at home and understands to contact office in the event of pump failure so that appropriate basal dose can be determined. Advised follow up appt in office in one to two weeks so settings can be evaluated and adjusted as indicated. Total face to face time = 90 minutes Greater than 50% of visit was spent counseling pt. Counseling consisted of filling and initiating insulin into pod, adjustments for exercise Assessment & Plan (11/18/2018 10:10 AM CDT): A1c 9.0. No significant improvement. Agree that Omnipod may help improve glycemic control. Advised to contact [facility] today for new transmitter. Will await CGM download. Pump training should be able to be scheduled shortly and will adjust settings during this time. BG recover to 107 with treatment with 30 grams CHO. Reviewed importance of taking prandial dose immediately ac. Assessment & Plan (08/06/2018 2:42 PM CDT): BG pattern fluctuates by report. Education provided on Omnipod and instructed to use trend arrows to guide observation to food. Since he is eating 3 meals and having elevated afternoon BG, advised to take Humalog 50 with lunch. BG goals reviewed and he will call for adjustment if current plan results in highs or lows. He is interested in Omnipod insulin pump but wants to wait until after upcoming trip. He will be back in November and contact us then for follow up. Will complete forms at that time. Assessment & Plan (06/08/2018 9:51 AM CDT): Hba1c was Lab Results Component Value Date HGBA1C 9.2 06/08/2018 today, indicating poor, worsening DM control 1800 calorie, consistent carb diet recommended 25-45 min daily exercise, combining both aerobic and resistance exercise recommended. The need to monitor blood glucose before meals and bedtime was discussed. Dose of basal and prandial insulin adjusted as follows: Lantus 80 u bid, Humalog 50 u bid Prevention and treatment of hyypoglcyemia discussed. Assessment & Plan (11/17/2017 9:45 AM CDT): Hba1c was Lab Results Component Value Date HGBA1C 7.9 11/17/2017 today, indicating 177 DM control 1800 calorie, consistent carb diet recommended 30 min daily exercise, combining both aerobic and resistance exercise is strongly recommended and needed as part of diabetes management plan. The need to monitor blood glucose before meals and bedtime was discussed. Take prandial insulin before meals based on carb intake and blood glucose readings. Prevention and treatment of hyypoglcyemia discussed. Assessment & Plan (06/23/2017 2:28 PM CDT): Hba1c was Lab Results Component Value Date HGBA1C 8.2 06/23/2017 today, indicating inadequate DM control 1800 calorie, consistent carb diet recommended 30 min daily exercise, combining both aerobic and resistance exercise is strongly recommended and needed as part of diabetes management plan. The need to monitor blood glucose before meals and bedtime was discussed. Take prandial insulin before meals based on carb intake and blood glucose readings. Prevention and treatment of hyypoglcyemia discussed. Assessment & Plan (03/10/2017 3:00 PM HANDHOLE MACHINE OPERATOR): Your Hba1c today was: 6.7 meaning a 3 month average sugar of : Your goal hba1c is under 7.0 to prevent half-way diabetes complications ( eye , kidney and nerve damage ) . Your goal sugars are in the 90-130 range Daily aerobic ( walking, riding a bike, swimming ) and resistance exercises ( light weight lifting, resistance band stretching ) for at least 30 minutes is recommended If you can not walk, chair exercises is very acceptable. As little as 15-20 min daily exercise , in one or two sessions a day is still very helpful . Eat small portion meals, no more than 1800 calories Diet Try to eat not more than than 2-3 servings of carbs ( starches ) wiith your meals. Avoid soft drinks, including regular sodas , fruit juices and sweetened tea. Drink water instead. Eat plenty of green and leafy vegetables, including salads. Take your medications regularly,including your insulin injections. Monitor your sugar levels with finger sticks Regularly and keep a log sheet or book. Bring your sugar meter and /or a log book or sheet to every office visit. Lower Lantus to 70 units twice a day Lower Humalog to 40 with breakfast and dinner Stay on Trulicy and Metformin Assessment & Plan (11/25/2016 12:26 PM CDT): Hba1c was 10.6 today, indicating poor, worsening DM control 1800 calorie, consistent carb diet recommended 30 min daily exercise, combining both aerobic and resistance exercise is strongly recommended and needed as part of diabetes management plan. The need to monitor blood glucose before meals and bedtime was discussed. Take prandial insulin before meals based on carb intake and blood glucose readings. Prevention and treatment of hyypoglcyemia discussed. Increase Lantus, 80 u bid Humalog 50 u ac Referred to CME / residential team leader Hypertension associated with diabetes 08/24/2012 Overview (05/14/2016): HYPERTENSION NOS Assessment & Plan (01/25/2024 3:18 PM HANDHOLE MACHINE OPERATOR): Chronic problem. Currently taking Lisinopril 40mg daily, amlodipine 10mg daily & HCTZ 12.5mg daily No changes at this time. Assessment & Plan (11/02/2023 8:54 AM CDT): Chronic problem. Currently taking Lisinopril 40mg daily, amlodipine 10mg daily & HCT 12.5mg daily No changes at this time. Assessment & Plan (07/30/2023 10:03 AM CDT): Chronic, well-controlled, stable. Continue current regimen including lisinopril. Update microalbumin and GFR Assessment & Plan (04/28/2023 8:58 AM CDT): Chronic problem. Currently taking Lisinopril 40mg daily, amlodipine 10mg daily & HCT 12.5mg daily No changes at this time. Assessment & Plan (12/18/2022 10:07 AM HANDHOLE MACHINE OPERATOR): Chronic problem. Elevated initially but returned to normal on recheck at end of visit. Currently taking Lisinopril 40mg daily, amlodipine 10mg daily & HCT 12.5mg daily No changes at this time. Assessment & Plan (07/01/2022 9:46 AM CDT): Chronic problem. Currently taking Lisinopril 40mg daily, amlodipine 10mg daily & HCT 12.5mg daily No changes at this time. Will update labs today. Verified that he uses [facility]. Aware to check results/results letter in [facility]. Will contact by phone if needed. Assessment & Plan (12/12/2021 11:24 AM CDT): Controlled on current medications, no changes. Assessment & Plan (05/07/2021 10:58 AM CDT): Low salt diet Exercise Continue current meds Check MA Assessment & Plan (07/19/2020 3:01 PM CDT): Check and record home BP readings. Follow up with pcp. Assessment & Plan (05/10/2020 10:13 AM CDT): Goal blood pressure is less than 140/85 Low salt diet was discussed andd recommended The importance of daily aerobic exercise was also emphasized. Continue current meds, including ANTONIA-I or ARB, e.g. Lisinopril Assessment & Plan (10/28/2019 12:22 PM CDT): BP elevated. Did not take medication yet today. Advised to go home and do this. Encouraged exercise and DASH diet Assessment & Plan (08/02/2019 1:04 PM CDT): Goal blood pressure is less than 140/85 Low salt diet recommended Daily aerobic exercise Continue current meds, including ANTONIA-I or ARB with Lisinopril Assessment & Plan (05/20/2019 11:14 AM CDT): Continue current medication plan Assessment & Plan (03/20/2019 11:10 AM HANDHOLE MACHINE OPERATOR): Controlled on current medications. Continue plan. Assessment & Plan (11/18/2018 10:11 AM CDT): Controlled on current medications. Continue plan. Assessment & Plan (08/06/2018 2:46 PM CDT): Controlled on current medications. Assessment & Plan (06/08/2018 9:51 AM CDT): Goal blood pressure is less than 140/85 Low salt diet recommended Daily aerobic exercise Continue current meds, including ANTONIA-I or ARB Assessment & Plan (11/17/2017 9:34 AM CDT): Goal blood pressure is less than 140/85 Low salt diet recommended Daily aerobic exercise Continue current meds, including ANTONIA-I or ARB Assessment & Plan (06/23/2017 2:28 PM CDT): Goal blood pressure is less than 140/85 Low salt diet recommended Daily aerobic exercise Continue current meds, including ANTONIA-I or ARB Assessment & Plan (03/10/2017 3:02 PM HANDHOLE MACHINE OPERATOR): Goal blood pressure is less than 140/85 Low salt diet recommended Daily aerobic exercise Continue current meds, including ANTONIA-I or ARB Assessment & Plan (11/25/2016 12:25 PM CDT): Goal blood pressure is less than 140/85 Low salt diet recommended Daily aerobic exercise Continue current meds, including ANTONIA-I or ARB Resolved Problems Problem Noted Date Diagnosed Date Resolved Date Morbid (severe) obesity due to excess calories 12/18/2022 11/02/2023 Hyperlipidemia 08/24/2012 07/01/2022 Overview (05/14/2016): HYPERLIPIDEMIA NEC/NOS Assessment & Plan (08/06/2018 2:46 PM CDT): At goal on current medications. Assessment & Plan (03/10/2017 3:02 PM HANDHOLE MACHINE OPERATOR): Goal of treatment , LDL cholesterol less than 100 ( less than 70 in patients with history of heart attacks and / or strokes ) NonHDL cholesterol goal less than 130 ( less than 100 in patients with history of heart attacks and / or strokes ) Continue statin therapy Check lipids Assessment & Plan (11/25/2016 12:26 PM CDT): Goal of treatment , LDL cholesterol less than 100 ( less than 70 in patients with history of heart attacks and / or strokes ) NonHDL cholesterol goal less than 130 ( less than 100 in patients with history of heart attacks and / or strokes ) Continue statin therapy Pure hypercholesterolemia 07/04/2010 Overview (05/16/2016): PURE HYPERCHOLESTEROLEM Social History Tobacco Use Types Packs/Day Years Used Date Smoking Tobacco: Former Smokeless Tobacco: Former Alcohol Use Standard Drinks/Week Comments Yes 0 (1 standard drink = 0.6 oz pur e alcohol) PHQ-2 Answer Date Recorded PHQ-2 Total Score (If total score is 3 or more points, staff should administer the PHQ-9) 0 07/30/2023 Sex and Gender Information Value Date Recorded Sex Assigned at Not on file Legal Sex Male 12:27 AM HANDHOLE MACHINE OPERATOR Gender Identity Not on file Sexual Orientation Not on file Last Filed Vital Signs Vital Sign Reading Time Taken Comments Blood Pressure 140/72 01/25/2024 2:57 PM HANDHOLE MACHINE OPERATOR Pulse 80 01/25/2024 2:57 PM HANDHOLE MACHINE OPERATOR Temperature - - Respiratory Rate 16 01/25/2024 2:57 PM HANDHOLE MACHINE OPERATOR Oxygen Saturation - - Inhaled Oxygen Concentration - - Weight 108.9 kg (240 lb) 01/25/2024 2:57 PM HANDHOLE MACHINE OPERATOR Height 175.3 cm (5' 9.02 ) 01/25/2024 2:57 PM CS T Body Mass Index 35.43 01/25/2024 2:57 PM HANDHOLE MACHINE OPERATOR Plan of Treatment Not on file Procedures Procedure Name Priority Date/Time Associated Diagnosis Comments POCT HEMOGLOBIN A1C Routine 01/25/2024 2 :59 PM HANDHOLE MACHINE OPERATOR Type 2 diabetes mellitus with hyperglycemia, with long-term current use of insulin (HCC) EGFR Routine 07/30/2023 10:05 AM CDT Type 2 diabetes mellitus with hyperglycemia, with long-term current use of insulin (HCC) LIPID PANEL Routine 07/30/2023 10:05 AM CDT Type 2 diabetes mellitus with hyperglycemia, with long-term current use of insulin (HCC) ALBUMIN CREATININE RATIO, URINE Routine 07/30/2023 10:05 AM CDT Type 2 diabetes mellitus with hyperglycemia, with long-term current use of insulin (HCC) HM DIABETES EYE EXAM Routine 04/17/2023 10:36 AM HANDHOLE MACHINE OPERATOR PSA, TOTAL Routine 06/18/2022 8:04 AM CDT from Last 3 Months or Most Recently Relevant to Health Maintenance Results * (ABNORMAL) POCT hemoglobin A1c (01/25/2024 2:59 PM HANDHOLE MACHINE OPERATOR) Hemoglobin A1C, POC 6.9 4.0 - 5.6 % Blood 01/25/2024 2:59 PM HANDHOLE MACHINE OPERATOR us Prudence Medellin NP POINT OF CARE TEST ORDERA BLES Final Result * eGFR (07/30/2023 10:05 AM CDT) eGFR >90 >=60 mL/min/1. 73 m2 Comment: Interpretive Data Reference Interval Normal >/= 90 mL/min/1.73m2 Mildly decreased* 60 - 89 mL/min/1.73m2 Mildly to moderately decreased 45 - 59 mL/min/1.73m2 Moderately to severely decreased 30 - 44 mL/min/1.73m2 Severely decreased 15 - 29 mL/min/1.73m2 Kidney Failure < 15 mL/min/1.73m2 *Relative to young adult level Estimated glomerular filtration rate is determined by the 2020 CKD-EPI equation recommended by the National Kidney Foundation (A Unifying Approach to GFR Estimation: Recommendations of the NKF-ASK Task Force on Reassessing the Inclusion of Race in Diagnosing Kidney Disease, JASN 2020). The CKD-EPI equation should not be used for patients with unstable renal function and has not been validated in children and those over 70. Current interpretive data was last reviewed 2020. Blood 07/30/2023 10:0 5 AM CDT 07/30/2023 2:14 PM CDT us Verna Quiles MD LAB BLOOD ORDERABLES Final Resul t [facility] [id number] Department [place] [address] * (ABNORMAL) Albumin Creatinine Ratio, Urine (07/30/2023 10:05 AM CDT) Albumin Ur 263.2 mg/L Comment: Interpretive Data No reference range established. Current interpretive data was last revised 2018. Creatinine Ur 50.3 mg/dL [facility] Comment: Interpretive Data No reference range established. Current interpretive data was last revised 2018. Albumin Creatinine Ratio, Ur 523(H) 1 - 29 mg/g [facility] Urine 07/30/2023 10:0 5 AM CDT 07/30/2023 2:10 PM CDT us Verna Quiles MD LAB URINE ORDERABLES Final Resul t [facility] [id number] Department [place] [address] * (ABNORMAL) Lipid panel (07/30/2023 10:05 AM CDT) Cholesterol 131 30 - 199 mg/dL Comment: Interpretive Data Ages < or = 19 years Acceptable: <170 mg/dL Borderline high: 170-199 mg/dL High: >or= 200 mg/dL Ages > or = 20 years Desirable: <200 mg/dL Borderline high: 200-239 mg/dL High: >or= 240 mg/dL Literature References: 1. Expert Panel on Integrated Guidelines for Cardiovascular Health and Risk Reduction in Children and Adolescents. Pediatrics 2011;128:S213 2. NCEP Expert Panel. Circulation 2004;110:227 Current Interpretive Data was last revised on 2017. Triglycerides 390(H) <=149 mg/dL [facility] Comment: Interpretive Data Ages < or = 9 years Acceptable: <75 mg/dL Borderline high: 75-99 mg/dL High: >or= 100 mg/dL Ages 10 to 20 years Acceptable: <90 mg/dL Borderline high: 90-129 mg/dL High: >or= 130 mg/dL Ages > or = 20 years Desirable: <150 mg/dL Borderline high: 150-199 mg/dL High: 200-499 mg/dL Very high: >or= 499 mg/dL Literature References: 1. Expert Panel on Integrated Guidelines for Cardiovascular Health and Risk Reduction in Children and Adolescents. Pediatrics 2011;128:S213 2. NCEP Expert Panel. Circulation 2004;110:227 Current Interpretive Data was last revised on 2017. HDL 29(L) >=40 mg/dL [facility] Comment: Interpretive Data Ages < or = 19 years Acceptable: >45 mg/dL Borderline low: 40-45 mg/dL Low: <40 mg/dL Ages > or = 20 years Desirable: >or= 60 mg/dL Low: <40 mg/dL Literature References: 1. Expert Panel on Integrated Guidelines for Cardiovascular Health and Risk Reduction in Children and Adolescents. Pediatrics 2011;128:S213 2. NCEP Expert Panel. Circulation 2004;110:227 Current Interpretive Data was last revised on 2017. LDL, calculated 24 <=129 mg/dL [facility] Comment: Interpretive Data Ages < or = 19 years Acceptable: <110 mg/dL Borderline high: 110-129 mg/dL High: >or= 130 mg/dL Ages > or = 20 years Optimal: <100 mg/dL Near optimal: 100-129 mg/dL Borderline high: 130-159 mg/dL High: >160 mg/dL Literature References: 1. Expert Panel on Integrated Guidelines for Cardiovascular Health and Risk Reduction in Children and Adolescents. Pediatrics 2011;128:S213 2. NCEP Expert Panel. Circulation 2004;110:227 Current Interpretive Data was last revised on 2017. Non-HDL Cholesterol 102 mg/dL [facility] Comment: Interpretive Data Ages < or = 19 years Acceptable: <120 mg/dL Borderline high: 120-144 mg/dL High: >145 mg/dL Ages > or = 20 years When triglycerides are >200 mg/dL, Non-HDL cholesterol is a secondary target of therapy with treatment goals that are 30 mg/dL greater than the LDL cholesterol target. Literature References: 1. Expert Panel on Integrated Guidelines for Cardiovascular Health and Risk Reduction in Children and Adolescents. Pediatrics 2011;128:S213 2. NCEP Expert Panel. Circulation 2004;110:227 Current Interpretive Data was last revised on 2017. Chol/HDL ratio 5 [facility] Blood 07/30/2023 10:0 5 AM CDT 07/30/2023 2:10 PM CDT Verna Quiles MD LAB BLOOD ORDERABLES Final Resul t [facility] [id number] Department [place] [address] * (ABNORMAL) DIABETES EYE EXAM (04/17/2023 10:36 AM HANDHOLE MACHINE OPERATOR) Historical Provider HEALTH MAINTENANCE Final Result * PSA, total Blood (06/18/2022 8:04 AM CDT) SCRIBED PSA, Total 0.95 <=4.00 - NA EXTERNAL LAB Blood 06/18/2022 8:04 AM CDT Historical Provider LAB BLOOD ORDERABLES Edit ed Result - Final EXTERNAL LAB from Last 3 Months or Most Recently Relevant to Health Maintenance Insurance [facility] [place] [id number] [facility] [place] [id number] Care Teams Wire Taper Relationship Specialty Start Date End Date Myles Osorio MD [address] [facility] [address] [place] [id number] PCP - General 05/09/16
--- OUTSIDE RECORDS SUMMARY | 2024-05-12 00:46 | XMS_ITS | Clinical Summary ---
Author Organization [facility] [address] [place] [address] [facility] Address [address] [place] [id number] Care Team Providers Care Temper Mill Roller Name Role Phone Myles Osorio MD Primary Care Provider +1- [phone] Allergies No known active allergies Medications aspirin 81 mg tablet Take one by mouth one time per day 0 0 11/11/[address] (PROTONIX) 40 mg EC tablet Take 1 tablet (40 mg total) by mouth daily 1 11/09/19 18 Active DEXCOM G6 BLOOD TESTER FOWL misc Use as directed to monitor glucose 1 each 06/09/19 19 Active blood glucose diagnostic (ONETOUCH ULTRA TEST) stripIndications :Type 2 diabetes mellitus with hyperglycemia, with long-term current use of insulin ([facility]) Use to test glucose 3 times daily 300 each 1 08/06/19 19 Active BD ULTRA-FINE MINI PEN NEEDLE 31 gauge x 3/16 needleIndication s:Type 2 diabetes mellitus with hyperglycemia, with long-term current use of insulin ([facility]) Use with insulin 4 times daily 400 each 1 08/06/19 19 Active lancets (ONETOUCH DELICA LANCETS) 33 gauge miscIndications: Type 2 diabetes mellitus with hyperglycemia, with long-term current use of insulin ([facility]) Use to test glucose 3 times daily 300 each 1 08/06/19 19 Active HYDROcodone-acet aminophen (NORCO) 5-325 mg per tablet 02/08/20 19 Active meloxicam (MOBIC) 15 mg tablet Take 1 tablet (15 mg total) by mouth daily 01/11/20 20 Active amLODIPine (NORVASC) 10 mg tablet Take 1 tablet (10 mg total) by mouth daily 06/07/19 Active allopurinoL (ZYLOPRIM) 300 mg tablet 10/30/19 21 Active nabumetone (RELAFEN) 750 mg tablet TAKE 1 TABLET BY MOUTH TWICE A DAY WI8TH FOOD 08/28/19 21 Active BinaxNOW COVID-19 Ag Self Test kit Use as Directed on the Package 12/12/19 22 Active Omnipod Dash Pods, Gen 4, cartridgeIndicat ions:Type 2 diabetes mellitus with hyperglycemia, with long-term current use of insulin ([facility]),Insulin pump status CHANGE POD EVERY 1 AND [...] hyperglycemia, with long-term current use of insulin ([facility]) TAKE 2 TABLETS BY MOUTH TWICE DAILY 360 tablet 3 11/03/19 24 Active Dexcom G6 Sensor deviceIndication s:Type 2 diabetes mellitus with hyperglycemia, with long-term current use of insulin ([facility]) CHANGE EVERY 10 DAYS 9 each 3 11/12/19 24 Active Mounjaro 5 mg/0.5 mL pen injectorIndicati ons:Type 2 diabetes mellitus with hyperglycemia, with long-term current use of insulin ([facility]) INJECT THE CONTENTS OF ONE PEN SUBCUTANEOUSLY [...] hyperglycemia, with long-term current use of insulin ([facility]) Use to inject U500 insulin twice daily if pump failure 100 each 3 01/25/20 24 Active blood-glucose transmitter (Dexcom G6 Transmitter) deviceIndication s:Type 2 diabetes mellitus with hyperglycemia, with long-term current use of insulin ([facility]) Change transmitter every 90 days 1 each 3 02/05/20 24 Active hydroCHLOROthiaz vinicio 12.5 mg tabletIndication s:Type 2 diabetes mellitus with hyperglycemia, with long-term current use of insulin ([facility]) TAKE 1 TABLET BY MOUTH DAILY 90 tablet 3 02/16/19 25 Active lisinopriL (PRINIVIL,ZESTRI L) 40 mg tabletIndication s:Type 2 diabetes mellitus with hyperglycemia, with long-term current use of insulin ([facility]) TAKE 1 TABLET BY MOUTH DAILY 90 tablet 3 02/16/19 25 Active simvastatin (ZOCOR) 40 mg tabletIndication s:Type 2 diabetes mellitus with hyperglycemia, with long-term current use of insulin ([facility]) TAKE 1 TABLET BY MOUTH DAILY 90 tablet 3 02/16/19 25 Active Active Problems Problem Noted Date Diagnosed Date Class 2 severe obesity due t o excess calories with serious comorbidity and body mass index (BMI) of 35.0 to 35.9 in adult 12/18/2022 Assessment & Plan (12/18/2022 10:13 AM COMMERCIAL CREDIT LEAD): Will resume going to gym as he's back/done with traveling. mounjaro 2.mg weekly sent. Discussed healthy diet and importance of regular physical activity (20- 30min/day, 150min/wk). Insulin pump status 12/30/2018 Assessment & Plan (01/25/2024 3:38 PM COMMERCIAL CREDIT LEAD): Green U500 insulin syringes were sent to [...] time. Assessment & Plan (12/18/2022 10:13 AM COMMERCIAL CREDIT LEAD): No pump setting changes at this time. [...] Thursday Assessment & Plan (03/20/2019 11:11 AM COMMERCIAL CREDIT LEAD): Reduce SF to 18, lower target to 100. Assessment & Plan (12/30/2018 2:39 PM COMMERCIAL CREDIT LEAD): Insulin pump setting calculations as follows: Basal 4.0 x 24 hour Bolus: IC calculated to 2 but he is now exercising and watching carbs so will change to 10 to start. SF 20 T 120 AI 4 Hyperlipidemia associated with type 2 diabetes edwin mora 06/23/2017 Assessment & Plan (01/25/2024 3:17 PM COMMERCIAL CREDIT LEAD): Chronic problem. Currently taking Simvastatin 40mg & vascepa 2gm daily. Last lipid panel: 07/30/23 LDL=24, CK=825 Assessment & Plan (11/02/2023 8:56 AM CDT): Chronic problem. Currently taking Simvastatin 40mg & vascepa 2gm daily. Last lipid panel: 07/30/23 LDL=24, PP=036 Assessment & Plan (04/28/2023 9:00 AM CDT): Chronic problem. Currently taking Simvastatin 40mg & vascepa 2gm daily. Assessment & Plan (12/18/2022 10:13 AM COMMERCIAL CREDIT LEAD): Chronic problem. Currently taking Simvastatin 40mg & vascepa 2gm daily. Assessment & Plan (07/01/2022 9:45 AM CDT): Chronic problem. Improved on current Simvastatin 40mg & vascepa 2gm bid. Last lipid panel: 05/07/21 LDL=24, AN=770. Will update labs today. Verified that he uses [facility]. Aware to check results/results letter in [facility]. Will contact by phone if needed. Assessment [...] Vascepa Assessment & Plan (01/26/2020 10:19 AM COMMERCIAL CREDIT LEAD): He will have lipid panel done in [...] therapy. Assessment & Plan (03/20/2019 11:11 AM COMMERCIAL CREDIT LEAD): Trigs elevated. Focus on diet, exercise and [...] of insulin 05/05/2013 Overview (05/16/2016): DMII WO CMP UNCNTRLD Assessment & Plan (01/25/2024 3:39 PM COMMERCIAL CREDIT LEAD): Chronic problem. A1c at goal but tim [...] infection. Assessment & Plan (12/18/2022 10:13 AM COMMERCIAL CREDIT LEAD): Chronic problem. A1c tim from 6.5% to [...] switch from Trulicity to Mounjaro. To send mycConnectM Technology Solutionst message or call when he starts last [...] weekly Assessment & Plan (03/06/2020 3:45 PM COMMERCIAL CREDIT LEAD): Will send rx for U500 vial to local pharmacy. He will pepper picker 1 vial with free voucher. Return [...] 6 Assessment & Plan (01/26/2020 3:35 PM COMMERCIAL CREDIT LEAD): A1c 9.1 worsening. Basal > bolus. There [...] summer. Assessment & Plan (03/20/2019 11:13 AM COMMERCIAL CREDIT LEAD): A1c 9.1. No change. Not being attentive to types of food eating, not as much exercise recently. Not bolusing for all carbs so difficult to determine exact pattern. Education provided to bolus for all carbs, BG at least tid. Will adjust bolus settings. Assessment & Plan (01/17/2019 4:19 PM COMMERCIAL CREDIT LEAD): Demonstrates appropriate ability to fill and insert infusion set. Understands concepts of basal vs. Bolus and is able to enter BG and carbs into pump. Has been provided with contact information for insulin pump claim service representative and how to reach our office [...] help improve glycemic control. Advised to contact [employer] today for new transmitter. Will await CGM [...] discussed. Assessment & Plan (03/10/2017 3:00 PM COMMERCIAL CREDIT LEAD): Your Hba1c today was: 6.7 meaning a 3 month average sugar of : Your goal hba1c is under 7.0 to prevent snf diabetes complications ( eye , kidney and [...] 50 u ac Referred to CME / tablet technician Hypertension associated with diabetes 08/24/2012 Overview (05/14/2016): HYPERTENSION NOS Assessment & Plan (01/25/2024 3:18 PM COMMERCIAL CREDIT LEAD): Chronic problem. Currently taking Lisinopril 40mg daily, [...] time. Assessment & Plan (12/18/2022 10:07 AM COMMERCIAL CREDIT LEAD): Chronic problem. Elevated initially but returned to [...] update labs today. Verified that he uses [facility]. Aware to check results/results letter in [facility]. Will contact by phone if needed. Assessment [...] plan Assessment & Plan (03/20/2019 11:10 AM COMMERCIAL CREDIT LEAD): Controlled on current medications. Continue plan. Assessment [...] ARB Assessment & Plan (03/10/2017 3:02 PM COMMERCIAL CREDIT LEAD): Goal blood pressure is less than 140/85 [...] medications. Assessment & Plan (03/10/2017 3:02 PM COMMERCIAL CREDIT LEAD): Goal of treatment , LDL cholesterol less [...] Pure hypercholesterolemia 07/04/2010 Overview (05/16/2016): PURE HYPERCHOLESTEROLEM Encounters Date Type Department Care Team Description 03/29/2024 Telephone [facility] [id number] [place] [address] [address] [address] Venra Quiles MD from Last 3 Months Surgical History Surgery Date Site/Laterality Comments CARPAL TUNNEL RELEASE EYE SURGERY Medical History Medical History Date Comments Hyperlipidemia Hyperlipidemia Diabetes mellitus (HCC) Diabetes Hypertension Hypertension Calculus of kidney 2012 nephrolithias is Hx Other Medical Not claustropho bic; Comments: GFC 11/01/2013 - Family History Medical History Relation Name Comments COPD Brother 1 COPD; Diabetes type II Brother 2 Diabetes me llitus type 2; Diabetes type II Father Diabetes me llitus type 2; Relation Name Status Comments Brother 1 Brother 2 Father Social History Tobacco Use Types Packs/Day Years [...] on file Legal Sex Male 12:27 AM COMMERCIAL CREDIT LEAD Gender Identity Not on file Sexual Orientation Not on file Obstetrics History Last Filed Vital Signs Vital Sign Reading Time Taken Comments Blood Pressure 140/72 01/25/2024 2:57 PM COMMERCIAL CREDIT LEAD Pulse 80 01/25/2024 2:57 PM COMMERCIAL CREDIT LEAD Temperature - - Respiratory Rate 16 01/25/2024 2:57 PM COMMERCIAL CREDIT LEAD Oxygen Saturation - - Inhaled Oxygen Concentration - - Weight 108.9 kg (240 lb) 01/25/2024 2:57 PM COMMERCIAL CREDIT LEAD Height 175.3 cm (5' 9.02 ) 01/25/2024 2:57 PM CS T Body Mass Index 35.43 01/25/2024 2:57 PM COMMERCIAL CREDIT LEAD Plan of Treatment Health Maintenance Due Date Last Done Comments Colon Cancer Screening-Colonoscopy 1955 Hepatitis C Screening 1955 Hepatitis B Screening 1972 Abdominal Aortic Aneurysm (A AA) Screen 12/23/2019 Well Visit 65+ 12/23/2019 Pneumococcal vaccine 65+ (2 of 2 - PPSV23) 03/07/2020 01/11/2020 Covid-19 Vaccine (4 - 2023-2 5 season) 2023 12/07/2020, 04/23/2020, 03/26/2020 Influenza Vaccine (#1) 2023 , 01/09/2021, 10/29/2020, Additional history exists Dilated Eye Exam 04/16/2024 04/17/2023, 11/2022, 04/15/2021, Additional history exists Prostate Cancer Screening-PSA 06/18/2024 06/18/2022, 04/23/2021 Hemoglobin A1C 07/25/2024 01/25/2024, 10/11, 07/30/2023, Additional history exists Albumin Creatinine Ratio, Urine 07/29/2024 07/30/2023, 06/18/2022, 06/18/2022, Additional history exists Depression Screening 07/29/2024 07/30/2023, 05/07/2021, 05/10/2020, Additional history exists Fall Risk Assessment 07/29/2024 07/30/2023 Lipid Panel 07/29/2024 07/30/2023, 051 , 05/07/2021, Additional history exists eGFR 07/29/2024 07/30/2023, 051 , 04/23/2021, Additional history exists Foot Exam 11/01/2024 11/02/2023, 06/10, 05/07/2021, Additional history exists DTaP/Tdap/Td Vaccine (2 - Td or Tdap) 12/12/2031 12/11/2021 Zoster Vaccine Completed 07/04/2020, 02/22/2020 Procedures Procedure Name Priority Date/Time Associated Diagnosis Comments POCT HEMOGLOBIN A1C Routine 01/25/2024 2 :59 PM COMMERCIAL CREDIT LEAD Type 2 diabetes mellitus with hyperglycemia, with [...] DIABETES EYE EXAM Routine 04/17/2023 10:36 AM COMMERCIAL CREDIT LEAD PSA, TOTAL Routine 06/18/2022 8:04 AM CDT from Last 3 Months or Most Recently Relevant to Health Maintenance Results * (ABNORMAL) POCT hemoglobin A1c (01/25/2024 2:59 PM COMMERCIAL CREDIT LEAD) Hemoglobin A1C, POC 6.9 4.0 - 5.6 % Blood 01/25/2024 2:59 PM COMMERCIAL CREDIT LEAD Prudence Medellin NP POINT OF CARE TEST [...] of Race in Diagnosing Kidney Disease, JASN 202). The CKD-EPI equation should not be used for patients with unstable renal function and has not been validated in children and those over 70. Current interpretive data was last reviewed 2020. Blood 07/30/2023 10:0 5 AM CDT 07/30/2023 2:14 PM CDT Verna Quiles MD LAB BLOOD ORDERABLES Final Resul t Performing Organization Address [facility] de Phone Number [facility]ENE [phone] [address] [facility] [place] [address] * (ABNORMAL) Albumin Creatinine Ratio, Urine (07/30/2023 10:05 AM CDT) Albumin Ur 263.2 mg/L Comment: Interpretive Data No reference range established. Current interpretive data was last revised 2018. Creatinine Ur 50.3 mg/dL [facility] Comment: Interpretive Data No reference range established. Current interpretive data was last revised 2018. Albumin Creatinine Ratio, Ur 523(H) 1 - 29 mg/g [facility] Urine 07/30/2023 10:0 5 AM CDT 07/30/2023 2:10 PM CDT Verna Quiles MD LAB URINE ORDERABLES Final Resul t Performing Organization Address [facility] de Phone Number A[place]ENE [phone] [place] [address] * (ABNORMAL) Lipid panel (07/30/2023 10:05 AM [...] revised on 2017. Triglycerides 390(H) <=149 mg/dL [facility] Comment: Interpretive Data Ages < or [...] on 2017. HDL 29(L) >=40 mg/dL [facility] Comment: Interpretive Data Ages < or = [...] 2017. LDL, calculated 24 <=129 mg/dL [facility] Comment: Interpretive Data Ages < or = [...] on 2017. Non-HDL Cholesterol 102 mg/dL [facility] Comment: Interpretive Data Ages < or = [...] LAB BLOOD ORDERABLES Final Resul t [facility] RANDY [address] [place] [address] * (ABNORMAL) DIABETES EYE EXAM (04/17/2023 10:36 AM COMMERCIAL CREDIT LEAD) Historical Provider HEALTH MAINTENANCE Final Result * PSA, total Blood (06/18/2022 8:04 AM CDT) SCRIBED PSA, Total 0.95 <=4.00 - NA EXTERNAL LAB Blood 06/18/2022 8:04 AM CDT Historical Provider LAB BLOOD ORDERABLES Edit ed Result - Final EXTERNAL LAB from Last 3 Months or Most Recently Relevant to Health Maintenance Insurance [facility] MEDICARE [facility] Address: [facility] [address] [place] [address] [facility] MEDICARE [facility] Address: [facility] [id number] [place] [phone] Care Teams Temper Mill Roller Relationship Specialty Start Date End Date Myles Osorio MD [address] [facility] [address] [place] [address] PCP - General 05/09/16
--- OUTSIDE RECORDS SUMMARY | 2024-05-12 00:46 | XMS_ITS | Encounter Summary ---
Author Organization [facility] Address [address] [facility] [address] [place] [address] Care Team Providers Care Machine Joiner Cementer Name Role Phone Myles Osorio MD Primary Care Provider +1- [phone] Myles Osorio MD Primary Care Provider +1- [phone] Encounter Details Date Type Department Care Team (Late st Contact Info) Description 04/25/2016 Orders Only [facility] ProviderLotus MD [address] [place] [id number] Social History Tobacco Use Types Packs/Day Years Used Date Smoking Tobacco: Former Alcohol Use Standard Drinks/Week Comments Yes 0 (1 standard drink = 0.6 oz pur e alcohol) Sex and Gender Information Value Date Recorded Sex Assigned at Not on file Legal Sex Male 12:27 AM JACQUARD LOOM WEAVER Gender Identity Not on file Sexual Orientation Not on file documented as of this encounter Plan of Treatment Not on file documented as of this encounter Procedures Procedure Name Priority Date/Time Associated Diagnosis Comments CARDIOLOGY REPORT 04/25/2016 documented in this encounter Results * CARDIOLOGY REPORT (04/25/2016) Anatomical Region Laterality Modality Other Narrative 04/25/2016 Ordered by an unspecified provider. Historical Provider [facility] [place] Final Result documented in this encounter Visit Diagnoses Not on filedocumented in this encounter Care Teams Machine Joiner Cementer Relationship Specialty Start Date End Date Myles Osorio MD [address] [facility] [address] [place] [address] PCP - General 05/09/16 Myles Osorio MD [address] [facility] [address] [place] [address] PCP - General 01/16/14 05/08/16 documented as of this encounter
[2024-05-12 07:15] VITALS: BP 143/62; PULSE 79; RESP 18; TEMP 36.1; O2SAT 96; BMI 33.3
[2024-05-12] MEDS: LACTATED RINGERS 1,000 ML 150 ML IV CONT (07:31)
[2024-05-12 07:49] LABS: Glucose Point of Care 85 mg/dl (65-105)
--- NOTE | 2024-05-12 08:09 | WPDANESEPPF ---
Anes - Initial Pre Proc Eval Procedure: Operation Date: 05/12/24 08:30 Proposed Procedures p Screening Colonoscopy - Luis Kwon MD Date/Time: 05/12/24 08:09 Surgeon: Luis Kwon MD Pre Op Diagnosis: screening malignant neoplasm colon Patient Data Age: 68 Gender: M Height: 1.78 m Weight: 105.5 kg Last Vital Signs Temp 97 F L 05/12/24 07:15 Pulse 79 05/12/24 07:15 Resp 18 05/12/24 07:15 BP 143/62 H 05/12/24 07:15 Pulse Ox 96 05/12/24 07:15 O2 Del Method Room Air 05/12/24 07:15 Allergies Allergy/AdvReac Type Severity Reaction Status Date / Time No Known Allergies Allergy Verified 05/12/24 07:13 Home Medications ?Medication ?Instructions ?Recorded ?Confirmed ?Type aspirin 81 mg tablet,delayed 81 mg PO DAILY 02/01/19 05/12/24 History release (Adult Low Dose Aspirin) hydrochlorothiazide 12.5 mg tablet 12.5 mg PO DAILY 02/01/19 05/12/24 History icosapent ethyl 1 gram capsule 1 gm PO BID 02/01/19 05/12/24 History (Vascepa) lisinopril 40 mg tablet 40 mg PO DAILY 02/01/19 05/12/24 History metformin 500 mg tablet 1,000 mg PO BID 02/01/19 05/12/24 History simvastatin 40 mg tablet 40 mg PO DAILY 02/01/19 05/12/24 History dapagliflozin propanediol 10 mg 10 mg PO DAILY 09/06/21 05/12/24 History tablet (Farxiga) nabumetone 750 mg tablet 750 mg PO BID #90 tabs 04/14/22 05/09/24 Rx insulin regular hum U-500 conc 500 See Rx Instructions subcut ONCE 04/29/23 05/12/24 History unit/mL subcutaneous soln (Humulin R U-500 (Concentrated) Insulin) tirzepatide 5 mg/0.5 mL 5 mg subcut WEEKLY 04/29/23 05/12/24 History subcutaneous pen injector (Mounjaro) amlodipine 10 mg tablet 10 mg PO DAILY #90 tabs 08/07/23 05/12/24 Rx methocarbamol 750 mg tablet 750 mg PO TID PRN muscle spasm #45 11/18/23 05/09/24 Rx tabs lorazepam 0.5 mg tablet 0.5 mg PO DAILY PRN anxiety #10 11/19/23 05/09/24 Rx tabs allopurinol 300 mg tablet 300 mg PO DAILY #90 tabs 12/30/23 05/12/24 Rx pantoprazole 40 mg tablet,delayed 40 mg PO QAM #90 tabs 12/30/23 05/12/24 Rx release humalog insulin pump 05/12/24 History Laboratory Tests 05/12/24 07:05 POC Capillary Glucose 85 mg/dl (65-105) Patient hx anesthesia problems: none Family hx anesthesia problems: none Results Review: All pre-operative results and documents have been reviewed as part of the pre-operative evaluation. [facility] Past Medical History Medical History Essential (primary) hypertension Gastro-esophageal reflux disease without esophagitis Obstructive sleep apnea (~2014) Other hyperlipidemia Sleep apnea in adult Family History Family History Father Cerebrovascular accident Family history of diabetes mellitus in first degree relative Family history of heart disease in male family member before age 55 Mother Family history of diabetes mellitus in first degree relative Other Hypertension Social History Social History Smoking packs per day: 1 Smoking cigarettes per day: 20.0 Years smoked: 25 Smoking pack-years: 25.00 Smoking status: Former smoker Second hand tobacco smoke exposure: No Smoking end date: 02/09/02 Alcohol intake: current Substance use: never Substance use type: does not use Lack of Transportation: No Lack of Food: Never True Current Housing: I Have Housing Concerned About Future Housing: No Difficulty Paying Gas/Electric Bills: No Difficulty Paying for Meds: No Currently Unemployed: No Education: Trade/Vocational Certificate Difficulty w/ Childcare or Family Care: No Living arrangements: with family Spiritual care concerns: No Anes - Eval Final PreProcedure Day of Procedure 05/12/24 08:09 Patient weight: obese Heart: regular rate and rhythm Lungs: clear to auscultation Airway: Mallampati scale class II Neurological: alert and oriented Last oral intake: >/= 8 hours ASA classification: III Emergent: no Anesthetic plan: proceed Anesthesia type and monitoring: general GIVS and standard monitoring Results Review: All pre-operative results and documents have been reviewed as part of the pre-operative evaluation. Informed Consent: The patient's anesthetic plan and its attendant risks and benefits were discussed with the patient/family/POA. Questions were solicited and answers provided to the satisfaction of the patient/family/POA. Discussed DNR with patient and he prefers option #3
--- NOTE | 2024-05-12 08:21 | PM.IMHP ---
H&P: HPI History of Present Illness Date/Time: 05/12/24 08:21 Chief Complaint: Screening colonoscopy - positive Cologuard test Narrative: This is the patient's 2nd colonoscopy. he was recently found to be Cologuard positive and is referred for colonoscopy. There are no GI symptoms and there is no family history of colorectal cancer. Review of Systems Review of Systems: All systems reviewed & are unremarkable except as noted in HPI and below PMFSH Past Medical History Medical History Essential (primary) hypertension Gastro-esophageal reflux disease without esophagitis Obstructive sleep apnea (~2014) Other hyperlipidemia Sleep apnea in adult Family History Family History Father Cerebrovascular accident Family history of diabetes mellitus in first degree relative Family history of heart disease in male family member before age 55 Mother Family history of diabetes mellitus in first degree relative Other Hypertension Social History Social History Smoking packs per day: 1 Smoking cigarettes per day: 20.0 Years smoked: 25 Smoking pack-years: 25.00 Smoking status: Former smoker Second hand tobacco smoke exposure: No Smoking end date: 02/09/02 Alcohol intake: current Substance use: never Substance use type: does not use Lack of Transportation: No Lack of Food: Never True Current Housing: I Have Housing Concerned About Future Housing: No Difficulty Paying Gas/Electric Bills: No Difficulty Paying for Meds: No Currently Unemployed: No Education: Trade/Vocational Certificate Difficulty w/ Childcare or Family Care: No Living arrangements: with family Spiritual care concerns: No Meds Home Medications and Allergies Home Medications ?Medication ?Instructions ?Recorded ?Confirmed ?Type aspirin 81 mg tablet,delayed 81 mg PO DAILY 02/01/19 05/12/24 History release (Adult Low Dose Aspirin) hydrochlorothiazide 12.5 mg tablet 12.5 mg PO DAILY 02/01/19 05/12/24 History icosapent ethyl 1 gram capsule 1 gm PO BID 02/01/19 05/12/24 History (Vascepa) lisinopril 40 mg tablet 40 mg PO DAILY 02/01/19 05/12/24 History metformin 500 mg tablet 1,000 mg PO BID 02/01/19 05/12/24 History simvastatin 40 mg tablet 40 mg PO DAILY 02/01/19 05/12/24 History dapagliflozin propanediol 10 mg 10 mg PO DAILY 09/06/21 05/12/24 History tablet (Farxiga) nabumetone 750 mg tablet 750 mg PO BID #90 tabs 04/14/22 05/09/24 Rx insulin regular hum U-500 conc 500 See Rx Instructions subcut ONCE 04/29/23 05/12/24 History unit/mL subcutaneous soln (Humulin R U-500 (Concentrated) Insulin) tirzepatide 5 mg/0.5 mL 5 mg subcut WEEKLY 04/29/23 05/12/24 History subcutaneous pen injector (Mounjaro) amlodipine 10 mg tablet 10 mg PO DAILY #90 tabs 08/07/23 05/12/24 Rx methocarbamol 750 mg tablet 750 mg PO TID PRN muscle spasm #45 11/18/23 05/09/24 Rx tabs lorazepam 0.5 mg tablet 0.5 mg PO DAILY PRN anxiety #10 11/19/23 05/09/24 Rx tabs allopurinol 300 mg tablet 300 mg PO DAILY #90 tabs 12/30/23 05/12/24 Rx pantoprazole 40 mg tablet,delayed 40 mg PO QAM #90 tabs 12/30/23 05/12/24 Rx release humalog insulin pump 05/12/24 History Allergies Allergy/AdvReac Type Severity Reaction Status Date / Time No Known Allergies Allergy Verified 05/12/24 07:13 Vital Signs Vital Signs - 24 hr 05/12/24 07:15 Temperature 97 F L Pulse Rate 79 Respiratory Rate 18 Blood Pressure 143/62 H Pulse Oximetry 96 Oxygen Delivery Room Air Exam Const: General: cooperative and healthy appearing Resp: Effort & Inspection: normal respiratory effort and able to speak in complete sentences Auscultation: clear to auscultation bilaterally Cardio: Rate: regular rate Rhythm: regular rhythm GI: Inspection: normal to inspection GI Palp: No No hepatosplenomegaly present Auscultation: normal bowel sounds Rectal Exam: deferred Skin: General skin exam: normal color Psych: Appearance: grossly normal Mental Status: mental status grossly normal Assessment and Plan Assessment and plan (1) Screening for colon cancer: Code(s): Z12.11 - Encounter for screening for malignant neoplasm of colon Status: Acute Assessment and Plan: The patient is deemed a good candidate for the procedure. Consent signed. Will proceed.
[2024-05-12] MEDS: SIMETHICONE ORAL SUSPENSION 20 MG/0.3 ML 30 ML BOTTLE 0.6 ML IRRIGATION (08:42)
[2024-05-12 08:55] VITALS: BP 101/55; PULSE 70; RESP 15; O2SAT 94
[2024-05-12 09:05] VITALS: BP 110/56; PULSE 70; RESP 17; O2SAT 94
[2024-05-12 09:15] VITALS: BP 125/59; PULSE 68; RESP 18; O2SAT 99
[2024-05-12 09:18] LABS: Glucose Point of Care 74 mg/dl (65-105)
== END 2024-05-12 09:33 | disposition home or self-care (01) ==
PROVIDERS: PCP Nurse Practitioner; Visit Provider Internal Medicine Gastroenterology
PROC: 0DJD8ZZ Inspection of Lower Intestinal Tract, Via Natural or Artificial Opening Endoscopic (ICD-10-PCS; CPT 45378; principal; 2024-05-12 08:30)
DX: R19.5 Other fecal abnormalities (principal); D12.2 Benign neoplasm of ascending colon; I10 Essential (primary) hypertension; K21.9 Gastro-esophageal reflux disease without esophagitis; G47.33 Obstructive sleep apnea (adult) (pediatric); E78.49 Other hyperlipidemia; Z87.891 Personal history of nicotine dependence; Z79.82 Long term (current) use of aspirin; Z79.4 Long term (current) use of insulin
CPT/HCPCS: 45385; 82948; 88305; J2003; J2704; J7120

== ENCOUNTER 2024-05-25 13:20 | Outpatient (CLI) | payer MEDICARE, SELFPAY ==
--- NOTE | 2024-05-25 13:27 | ECG_ITS ---
Test Date: 2024-05-25 13:41:28 Measurements Intervals [place] Rate: 95 P: 60 WA: 181 QRS: -75 QRSD: 157 T: 24 QT: 385 QTc: 485 Interpretive Statements SINUS RHYTHM RIGHT BUNDLE BRANCH BLOCK LEFT ANTERIOR FASCICULAR BLOCK BASELINE ARTIFACT- I, II, III, AVR, AVL, AVF, V1-V6 ABNORMAL ECG No previous ECG available for comparison Electronically Signed On 05-25-2024 14:08:36 CDT by Barrett Aguirre D.O.
[2024-05-25 14:07] LABS: Hematocrit 49.5 % (42.0-52.0); Hemoglobin 15.5 g/dL (14.0-18.0); Mean Corpuscular HGB Conc 31.3 g/dl (32-36); Mean Corpuscular Hemoglobin 29.2 pg (26-34); Mean Corpuscular Volume 93.4 fl (80-100); Mean Platelet Volume 8.8 fl (7.4-10.4); Platelet Count Result 254 k/mm3 (150-375); Red Cell Distribution Width 14.3 % (11.5-14.5); White Blood Count 9.9 K/mm3 (4.5-10.0)
--- OUTSIDE RECORDS SUMMARY | 2024-05-25 14:35 | XMS_ITS | Encounter Summary ---
Author Organization [facility] Address [address] [place] [address] Care Team Providers Care Careers Adviser Name Role Phone Myles Osorio MD Primary Care Provider [phone] Myles Osorio MD Primary Care Provider [phone] Encounter Details Date Type Department Care Team (Late st Contact Info) Description 04/25/2016 Orders Only [facility] ProviderLotus MD [address] [place] [id number] Social History Tobacco Use Types Packs/Day Years Used Date Smoking Tobacco: Former Alcohol Use Standard Drinks/Week Comments Yes 0 (1 standard drink = 0.6 oz pur e alcohol) Sex and Gender Information Value Date Recorded Sex Assigned at Not on file 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
--- OUTSIDE RECORDS SUMMARY | 2024-05-25 14:35 | XMS_ITS | Encounter Summary ---
Author Organization [facility] Address [address] [place] [address] Care Team Providers Care District Plant Engineer Name Role Phone Myles Osorio MD Primary Care Provider [phone] Encounter Details Date Type Department Care Team (Late st Contact Info) Description 03/21/2020 Prep for Procedure [facility] [address] [place], [place] [id number] Cristino Cox MD [address] [place], [place] [id number] Social History Tobacco Use Types Packs/Day Years Used Date Smoking Tobacco: Former Cigarettes Q uit: 1989 Sex and Gender Information Value Date Recorded Sex Assigned at Male 05/21/2024 12:22 PM CDT Legal Sex Male 6:45 PM CDT Gender Identity Not on file Sexual Orientation Not on file COVID-19 Exposure Response Date Recorded In the last month, have you been in contact with someone who was confirmed or suspected to have Coronavirus / COVID-19? No / Unsure 03/21/2020 8:11 AM CORPORATE TECHNICAL RECRUITER documented as of this encounter Plan of Treatment Not on file documented as of this encounter Results * PRE-SURGICAL/PRE-PROCEDURE CORONAVIRUS (COVID 19) (03/25/2020 8:57 AM CORPORATE TECHNICAL RECRUITER) CORONAVIRUS SARS COV 2 PCR (RESP) NOT DETECTED NOT DETECTED 03/26/2020 2:31 PM CORPORATE TECHNICAL RECRUITER [facility] Comment: A Not Detected (negative) test result [...] providers and patients using the following websites: https://www.[employer]/home/Covid-19/HCP/NAAT/fact-sheet2 https://www.[employer]/home/Covid-19/Patients/NAAT/ fact-sheet2 This test has been authorized by the FDA under an Emergency Use Authorization (EUA) for use by authorized laboratories. Due to the current public health emergency, [facility] is receiving a high volume of samples [...] about COVID-19 can be found at the [facility] website: www.[employer]/Covid19. Test performed at [facility] [address] [place] [address] Director: BALAJI THURSTON DO,MPH FIRST TEST NO 03/25/2020 8:49 AM [facility] EMPLOYED IN HEALTHCARE NO 03/25/2020 8:49 AM [facility] SYMPTOMATIC DEFINED BY CDC NO 03/25/2020 8:49 AM [facility] DATE OF SYMPTOM ONSET UNKNOWN 03/25/2020 9:48 AM CORPORATE TECHNICAL RECRUITER [facility] HOSPITALIZATION STATUS NO 03/25/2020 8:49 AM CORPORATE TECHNICAL RECRUITER [facility] PATIENT IN ICU NO 03/25/2020 8:49 AM CORPORATE TECHNICAL RECRUITER [facility] RESIDENT OF [facility] CARE NO 03/25/2020 8:49 AM CORPORATE TECHNICAL RECRUITER [facility] NO 03/25/2020 9:48 AM CORPORATE TECHNICAL RECRUITER [facility] PATIENT'S RACE WHITE OR 03/25/2020 8:49 AM CORPORATE TECHNICAL RECRUITER [facility] ETHNICITY NONHISPANIC 03/25/2020 8:49 AM CORPORATE TECHNICAL RECRUITER [facility] SOURCE (QST) NASOPHARYNGEAL SWAB 03/25/2020 8:49 AM CORPORATE TECHNICAL RECRUITER [facility] NASOPHARYNGEAL SWAB / Unknown 03/25/2020 8:57 AM CORPORATE TECHNICAL RECRUITER us Cristino Cox MD MICROBIOLOGY - GENERAL ORDERABLE S Final Result Performing Organization Address City/State/[facility] de Phone Number [facility] [address] [place] [address], [facility] [id number] [place] [address], documented in this encounter Visit Diagnoses Diagnosis Pre-op testing- Primary Preoperative examination, unspecified documented in this encounter Additional Health Concerns Infection Onset Date Last Indicated Resolved Time COVID-19 Rule Out 03/25/2020 03/25/2020 03/26/2020 2:31 PM CORPORATE TECHNICAL RECRUITER documented as of this encounter Care Teams District Plant Engineer Relationship Specialty Start Date End Date Myles Osorio MD [address] [place] [address] PCP - General INTERNAL MEDICINE 01/17/20 documented as of this encounter
--- OUTSIDE RECORDS SUMMARY | 2024-05-25 14:35 | XMS_ITS | Referral Summary ---
Author Organization [address] Address [address] [place] [id number] Care Team Providers Care Talent Program Manager Name Role Phone Myles Osorio MD Primary Care Provider [phone] Encounters Date Type Department Care Team Description 05/23/2024 Orders Only [facility] Diabetes and Endocrinology [address] [place] [id number] Prudence Medellin NP Type 2 diabetes mellitus with hyperglycemia, with long-term current use of insulin (HCC) (Primary Dx) 05/20/2024 Results Follow-Up [facility] [address] [place] [id number] Prudence Medellin NP 05/18/2024 10:13 AM CDT - 05/18/2024 11:59 PM CDT Hospital Encounter [address] [address] Type 2 diabetes mellitus with hyperglycemia, with long-term current use of insulin (HCC); Hyperlipidemia associated with type 2 diabetes mellitus (HCC); Hypertension associated with diabetes (HCC) Discharge Disposition: Discharge to home or self care 05/18/2024 10:15 AM CDT Lab [facility] Outpatient Lab at [address] [phone] Hypertension associated with diabetes (HCC) (Primary Dx); Type 2 diabetes mellitus with hyperglycemia, with long-term current use of insulin (HCC) 05/18/2024 9:30 AM CDT Office Visit [facility] Diabetes [facility] Endocrinology [address] [place] [address] Prudence Medellin, RENZO Type 2 diabetes mellitus with hyperglycemia, with long-term current use of insulin ([facility]) (Primary Dx); Hypertension associated with diabetes (HCC); Hyperlipidemia associated with type 2 diabetes mellitus (HCC); Insulin pump status 03/29/2024 Telephone [facility] [id number] [place] [address] [address] [address] Verna Quiles MD from Last 3 Months Allergies No known active allergies Medications aspirin 81 mg tablet Take one by mouth one time per day [address] (PROTONIX) 40 mg EC tablet Take 1 tablet (40 mg total) by mouth daily 1 018 Active DEXCOM G6 INDUSTRIAL WASTE TREATMENT TECHNICIAN misc Use as directed to monitor glucose 1 each Active blood glucose diagnostic (ONETOUCH ULTRA TEST) stripIndication s:Type 2 diabetes mellitus with hyperglycemia, with long-term current use of insulin ([facility]) Use to test glucose 3 times daily 300 each 1 Active BD ULTRA-FINE MINI PEN NEEDLE 31 gauge x 3/16 needleIndicatio ns:Type 2 diabetes mellitus with hyperglycemia, with long-term current use of insulin ([facility]) Use with insulin 4 times daily 400 each Active lancets (ONETOUCH DELICA LANCETS) 33 gauge miscIndications :Type 2 diabetes mellitus with hyperglycemia, with long-term current use of insulin ([facility]) Use to test glucose 3 times daily 300 each Active HYDROcodone-antonia taminophen (NORCO) 5-325 mg per tablet Active meloxicam (MOBIC) 15 mg tablet Take 1 tablet (15 mg total) by mouth daily Active amLODIPine (NORVASC) 10 mg tablet Take 1 tablet (10 mg total) by mouth daily Active allopurinoL (ZYLOPRIM) 300 mg tablet Active nabumetone (RELAFEN) 750 mg tablet TAKE 1 TABLET BY MOUTH TWICE A DAY WI8TH FOOD Active BinaxNOW COVID-19 Ag Self Test kit Use as Directed on the Package Active Omnipod Dash Pods, Gen 4, cartridgeIndica tions:Type 2 diabetes mellitus with hyperglycemia, with long-term current use of insulin ([facility]),Insulin pump status CHANGE POD EVERY 1 AND 1/2 DAYS 60 each 3 Active insulin regular U-500 (HumuLIN R U-500) 500 unit/mL CONCENTRATED vial for injection INJECT SUBCUTANEOUSLY UP TO 0.5ML DAILY VIA INSULIN PUMP 60 mL 3 Active Farxiga 10 mg tablet TAKE 1 TABLET BY MOUTH DAILY 90 tablet 3 Active ibuprofen (ADVIL,MOTRIN) 600 mg tablet Take 1 tablet (600 mg total) by mouth every 6 (six) hours as needed Active ibuprofen (ADVIL,MOTRIN) 600 mg tablet Take by mouth every 6 (six) hours as needed Active nitrofurantoin monohydrate (MACROBID) 100 mg capsule Take 1 capsule (100 mg total) by mouth 2 (two) times a day Active icosapent ethyL (VASCEPA) 1 gram capsule Take 2 capsules (2 g total) by mouth 2 (two) times a day 360 capsule 1 Active metFORMIN XR (GLUCOPHAGE XR) 500 mg 24 hr tabletIndicatio ns:Type 2 diabetes mellitus with hyperglycemia, with long-term current use of insulin ([facility]) TAKE 2 TABLETS BY MOUTH TWICE DAILY 360 tablet 3 Active Dexcom G6 Sensor deviceIndicatio ns:Type 2 diabetes mellitus with hyperglycemia, with long-term current use of insulin ([facility]) CHANGE EVERY 10 DAYS 9 each 3 Active LORazepam (ATIVAN) 0.5 mg tablet TAKE 1 TABLET BY MOUTH ONCE DAILY NEEDED FOR ANXIETY Active methocarbamoL (ROBAXIN) 750 mg tablet TAKE 1 TABLET BY MOUTH 3 TIMES A DAY NEEDED FOR MUSCLE SPASMS Active insulin U-500 syringe-needle 1/2 mL 31 gauge x 15/64 syringeIndicati ons:Type 2 diabetes mellitus with hyperglycemia, with long-term current use of insulin ([facility]) Use to inject U500 insulin twice daily if pump failure 100 each 3 024 Active blood-glucose transmitter (Dexcom G6 Transmitter) deviceIndicatio ns:Type 2 diabetes mellitus with hyperglycemia, with long-term current use of insulin ([facility]) Change transmitter every 90 days 1 each 3 024 Active hydroCHLOROthia zide 12.5 mg tabletIndicatio ns:Type 2 diabetes mellitus with hyperglycemia, with long-term current use of insulin ([facility]) TAKE 1 TABLET BY MOUTH DAILY 90 tablet 3 025 Active lisinopriL (PRINIVIL,ZESTR IL) 40 mg tabletIndicatio ns:Type 2 diabetes mellitus with hyperglycemia, with long-term current use of insulin ([facility]) TAKE 1 TABLET BY MOUTH DAILY 90 tablet 3 025 Active simvastatin (ZOCOR) 40 mg tabletIndicatio ns:Type 2 diabetes mellitus with hyperglycemia, with long-term current use of insulin ([facility]) TAKE 1 TABLET BY MOUTH DAILY 90 tablet 3 025 Active tirzepatide (MOUNJARO) 7.5 mg/0.5 mL pen injector injectionIndica tions:Type 2 diabetes mellitus with hyperglycemia, with long-term current use of insulin ([facility]) Inject 0.5 mL (7.5 mg total) under the skin every 7 days 6 mL 3 025 2025 Active Mounjaro 5 mg/0.5 mL pen injectorIndicat ions:Type 2 diabetes mellitus with hyperglycemia, with long-term current use of insulin ([facility]) INJECT THE CONTENTS OF ONE PEN SUBCUTANEOUSLY WEEKLY DIRECTED 6 mL 3 024 2024 Discontinued Active Problems Problem Noted Date Diagnosed Date Class 2 severe obesity due t o excess calories with serious comorbidity and body mass index (BMI) of 35.0 to 35.9 in adult 12/18/2022 Assessment & Plan (12/18/2022 10:13 AM ASSOCIATE ART DIRECTOR): Will resume going to gym as he's back/done with traveling. mounjaro 2.mg weekly sent. Discussed healthy diet and importance of regular physical activity (20- 30min/day, 150min/wk). Insulin pump status 12/30/2018 Assessment & Plan (05/18/2024 9:52 AM CDT): Pump setting changes: -decrease 6a from 1.3 to 1.2 units/hr Current medications: Metformin XR 1000 mg daily with meals Farxiga 10 mg Mounjaro 5mg weekly Omnipod Dash insulin pump with U500 insulin BR 12a 1.1, 6a 1.2, 6p 1.6 CR 10 CF 35 Target 110 AIT 5 hrs Assessment & Plan (01/25/2024 3:38 PM ASSOCIATE ART DIRECTOR): Green U500 insulin syringes were sent to [...] time. Assessment & Plan (12/18/2022 10:13 AM ASSOCIATE ART DIRECTOR): No pump setting changes at this time. [...] Thursday Assessment & Plan (03/20/2019 11:11 AM ASSOCIATE ART DIRECTOR): Reduce SF to 18, lower target to 100. Assessment & Plan (12/30/2018 2:39 PM ASSOCIATE ART DIRECTOR): Insulin pump setting calculations as follows: Basal 4.0 x 24 hour Bolus: IC calculated to 2 but he is now exercising and watching carbs so will change to 10 to start. SF 20 T 120 AI 4 Hyperlipidemia associated with type 2 diabetes edwin mora 06/23/2017 Assessment & Plan (05/18/2024 10:03 AM CDT): Chronic problem. Currently taking Simvastatin 40mg & vascepa 2gm daily. Last lipid panel: 07/30/23 LDL=24, YP=567 Will update labs. Verified that he uses [employer]. Aware to check results/results letter in [employer]. Will contact by phone if needed. Assessment & Plan (01/25/2024 3:17 PM ASSOCIATE ART DIRECTOR): Chronic problem. Currently taking Simvastatin 40mg & vascepa 2gm daily. Last lipid panel: 07/30/23 LDL=24, MO=791 Assessment & Plan (11/02/2023 8:56 AM CDT): Chronic problem. Currently taking Simvastatin 40mg & vascepa 2gm daily. Last lipid panel: 07/30/23 LDL=24, IU=122 Assessment & Plan (04/28/2023 9:00 AM CDT): Chronic problem. Currently taking Simvastatin 40mg & vascepa 2gm daily. Assessment & Plan (12/18/2022 10:13 AM ASSOCIATE ART DIRECTOR): Chronic problem. Currently taking Simvastatin 40mg & vascepa 2gm daily. Assessment & Plan (07/01/2022 9:45 AM CDT): Chronic problem. Improved on current Simvastatin 40mg & vascepa 2gm bid. Last lipid panel: 05/07/21 LDL=24, OU=697. Will update labs today. Verified that he uses [employer]. Aware to check results/results letter in [employer]. Will contact by phone if needed. Assessment [...] Vascepa Assessment & Plan (01/26/2020 10:19 AM ASSOCIATE ART DIRECTOR): He will have lipid panel done in [...] therapy. Assessment & Plan (03/20/2019 11:11 AM ASSOCIATE ART DIRECTOR): Trigs elevated. Focus on diet, exercise and [...] DMII WO CMP UNCNTRLD Assessment & Plan (05/18/2024 10:04 AM CDT): Chronic problem. A1c at goal and dropped from 6.9% 01/25/24 to now 6.1% without hypoglycemia. Pump setting changes: -decrease 6a from 1.3 to 1.2 units/hr Current medications: Metformin XR 1000 mg daily with meals Farxiga 10 mg Mounjaro 5mg weekly Omnipod Dash insulin pump with U500 insulin BR 12a 1.1, 6a 1.2, 6p 1.6 CR 10 CF 35 Target 110 AIT 5 hrs Will update labs. Verified that he uses [employer]. Aware to check results/results letter in [employer]. Will contact by phone if needed. UTD on DM eye exam (04/17/23). Due. Will call to set up. Strive for regular exercise (30min most days) and diet (get at least 4-5 servings of fruit and veggies daily, avoid processed foods, increase lean protein intake and decrease carb portions as well as fruit juices, regular soda & desserts). Watch carbs and simple sugars. Check the blood sugar dexcom G6. Check the feet daily for skin breakdown and infection. Assessment & Plan (01/25/2024 3:39 PM ASSOCIATE ART DIRECTOR): Chronic problem. A1c at goal but tim [...] infection. Assessment & Plan (12/18/2022 10:13 AM ASSOCIATE ART DIRECTOR): Chronic problem. A1c tim from 6.5% to [...] switch from Trulicity to Mounjaro. To send Imonomit message or call when he starts last [...] weekly Assessment & Plan (03/06/2020 3:45 PM ASSOCIATE ART DIRECTOR): Will send rx for U500 vial to local pharmacy. 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 Return on [...] 6 Assessment & Plan (01/26/2020 3:35 PM ASSOCIATE ART DIRECTOR): A1c 9.1 worsening. Basal > bolus. There [...] summer. Assessment & Plan (03/20/2019 11:13 AM ASSOCIATE ART DIRECTOR): A1c 9.1. No change. Not being attentive to types of food eating, not as much exercise recently. Not bolusing for all carbs so difficult to determine exact pattern. Education provided to bolus for all carbs, BG at least tid. Will adjust bolus settings. Assessment & Plan (01/17/2019 4:19 PM ASSOCIATE ART DIRECTOR): Demonstrates appropriate ability to fill and insert infusion set. Understands concepts of basal vs. Bolus and is able to enter BG and carbs into pump. Has been provided with contact information for insulin pump quality assurance representative and how to reach our office [...] help improve glycemic control. Advised to contact Dexcom today for new transmitter. Will await CGM [...] discussed. 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 Currently taking Lisinopril 40mg daily, amlodipine 10mg daily & HCTZ 12.5mg daily No changes at this time. Will update labs. Verified that he uses [employer]nosis. Aware to check results/results letter in [employer]. Will contact by phone if needed. Assessment & Plan (01/25/2024 3:18 PM ASSOCIATE ART DIRECTOR): Chronic problem. Currently taking Lisinopril 40mg daily, [...] time. Assessment & Plan (12/18/2022 10:07 AM ASSOCIATE ART DIRECTOR): Chronic problem. Elevated initially but returned to [...] update labs today. Verified that he uses Imonomit. Aware to check results/results letter in [employer]nosis. Will contact by phone if needed. Assessment [...] plan Assessment & Plan (03/20/2019 11:10 AM ASSOCIATE ART DIRECTOR): Controlled on current medications. Continue plan. Assessment [...] ARB Assessment & Plan (03/10/2017 3:02 PM ASSOCIATE ART DIRECTOR): Goal blood pressure is less than 140/85 [...] medications. Assessment & Plan (03/10/2017 3:02 PM ASSOCIATE ART DIRECTOR): Goal of treatment , LDL cholesterol less [...] on file Legal Sex Male 12:27 AM ASSOCIATE ART DIRECTOR Gender Identity Not on file Sexual Orientation Not on file Last Filed Vital Signs Vital Sign Reading Time Taken Comments Blood Pressure 128/72 05/18/2024 9:22 AM CDT Pulse 82 05/18/2024 9:22 AM CDT Temperature - - Respiratory Rate 18 05/18/2024 9:22 AM CDT Oxygen Saturation - - Inhaled Oxygen Concentration - - Weight 106.6 kg (235 lb) 05/18/2024 9:22 AM CDT Height 175.3 cm (5' 9.02 ) 05/18/2024 9:22 AM CD T Body Mass Index 34.69 05/18/2024 9:22 AM CDT Plan of Treatment Not on file Procedures Procedure Name Priority Date/Time Associated Diagnosis Comments EGFR Routine 05/18/2024 10:13 AM CDT Type 2 diabetes mellitus with hyperglycemia, with long-term current use of insulin (HCC) Hypertension associated with diabetes (HCC) COMPREHENSIVE METABOLIC PANEL Routine 05/18/2024 10:13 AM CDT Type 2 diabetes mellitus with hyperglycemia, with long-term current use of insulin (HCC) Hypertension associated with diabetes (HCC) LIPID PANEL Routine 05/18/2024 10:13 AM CDT Type 2 diabetes mellitus with hyperglycemia, with long-term current use of insulin (HCC) Hyperlipidemia associated with type 2 diabetes mellitus (HCC) ALBUMIN CREATININE RATIO, URINE Routine 05/18/2024 10:13 AM CDT Type 2 diabetes mellitus with hyperglycemia, with long-term current use of insulin (HCC) POCT GLUCOSE Routine 05/18/2024 9:25 AM CDT Type 2 diabetes mellitus with hyperglycemia, with long-term current use of insulin (HCC) POCT HEMOGLOBIN A1C Routine 05/18/2024 9 :25 AM CDT Type 2 diabetes mellitus with hyperglycemia, with long-term current use of insulin (HCC) HM DIABETES EYE EXAM Routine 04/17/2023 10:36 AM ASSOCIATE ART DIRECTOR PSA, TOTAL Routine 06/18/2022 8:04 AM CDT from Last 3 Months or Most Recently Relevant to Health Maintenance Results * eGFR (05/18/2024 10:13 AM CDT) eGFR >90 >=60 mL/min/1. 73 [...] interpretive data was last reviewed 2020. Blood 05/18/2024 10:1 3 AM CDT 05/18/2024 7:19 PM CDT Prudence Medellin MASTER CERTIFIED RV TECHNICIAN LAB BLOOD ORDERABLES [place] Result Performing Organization Address [facility] de Phone Number ARLENE [address] [address] [facility] [place] [address] * (ABNORMAL) Albumin Creatinine Ratio, Urine (05/18/2024 10:13 AM CDT) Albumin Ur 267.3 mg/L Comment: Interpretive Data No reference range established. Current interpretive data was last revised 2018. Creatinine Ur 53.2 mg/dL [facility] Comment: Interpretive Data No reference range established. Current interpretive data was last revised 2018. Albumin Creatinine Ratio, Ur 502(H) 1 - 29 mg/g [facility] Urine 05/18/2024 10:1 3 AM CDT 05/18/2024 7:16 PM CDT Prudence Medellin MASTER CERTIFIED RV TECHNICIAN LAB URINE ORDERABLES [place] Result Performing Organization Address [facility] de Phone Number ARLENE [address] [address] [place] [address] * (ABNORMAL) Lipid panel (05/18/2024 10:13 AM CDT) Cholesterol 137 30 - 199 mg/dL Comment: Interpretive Data [...] Data was last revised on 2017. Triglycerides 321(H) <=149 mg/dL [facility] Comment: Interpretive Data Ages < or [...] Data was last revised on 2017. HDL 32(L) >=40 mg/dL [facility] Comment: Interpretive Data Ages [...] was last revised on 2017. LDL, calculated 55 <=129 mg/dL [facility] Comment: Interpretive Data Ages < or = 19 years Acceptable: <110 mg/dL Borderline high: 110-129 mg/dL High: >or= 130 mg/dL Ages > or = 20 years Optimal: <100 mg/dL Near optimal: 100-129 mg/dL Borderline high: 130-159 mg/dL High: >160 mg/dL Calculated using the Karlos LDL-C estimating equation. This equation was implemented on 2023. Prior to this date LDL-C was estimated using the Friedewald equation. Literature References: 1. Expert Panel on Integrated Guidelines for Cardiovascular Health and Risk Reduction in Children and Adolescents. Pediatrics 2011;128:S213 2. NCEP Expert Panel. Circulation 2004;110:227 3. Karlos Rodriguez al. MIRANDA Cardiol. 2020 June 09;5(5):540-548. doi: 10.1001/jamacardio.2020.0013 Current Interpretive Data was last revised on 2023. Non-HDL Cholesterol 105 mg/dL [facility] Comment: Interpretive Data Ages < [...] was last revised on 2017. Chol/HDL ratio 4 [facility] CH Blood 05/18/2024 10:1 3 AM CDT 05/18/2024 7:16 PM CDT us Prudence Medellin NP LAB BLOOD ORDERABLES [place] Result [facility] [id number] [place] [address] * (ABNORMAL) Comprehensive metabolic panel (05/18/2024 10:13 AM CDT) Sodium 141 135 - 145 mmol/L Potassium, pl 4.4 3.3 - 4.9 mmol/L [facility] Chloride 104 97 - 110 mmol/L [facility] CO2 23 22 - 32 mmol/L [facility] Anion gap 14 2 - 15 mmol/L [facility] BUN 16 6 - 25 mg/dL [facility] Creatinine 0.78(L) 0.80 - 1.30 mg/dL [facility] Glucose 51(C) 70 - 199 mg/dL [facility] Comment: Critical Result called to and read back by Dr. Verna Quiles, DATE: 2024-05-18 22:10:31 BY: Jacquie Butterfield Interpretive Data Fasting glucose >/= 126 mg/dl is diagnostic for diabetes. Fasting is defined as no caloric intake for at least 8 hours. Fasting glucose between 100 mg/dl to 125 mg/dl is diagnostic of prediabetes. In a patient with classic symptoms of hyperglycemia or hyperglycemic crisis, a random glucose >/= 200 mg/dl is diagnostic for diabetes. In the absence of unequivocal hyperglycemia, results should be confirmed by repeat testing. The classification and Diagnosis of Diabetes Diabetes Care 2021; 46: S19-S40. Current interpretive data was last revised 2022. Calcium 9.6 8.5 - 10.3 mg/dL [facility] Bilirubin, total 0.4 0.1 - 1.2 mg/dL [facility] Protein, pl 7.7 6.5 - 8.5 g/dL [facility] Albumin 4.0 3.5 - 5.0 g/dL [facility] Alk phos 74 40 - 130 Units/L [facility] ALT 24 7 - 55 Units/L [facility] AST 33 10 - 50 Units/L [facility] Blood 05/18/2024 10:1 3 AM CDT 05/18/2024 7:16 PM CDT us Prudence Medellin MASTER CERTIFIED RV TECHNICIAN LAB BLOOD ORDERABLES [place] Result [facility] [id number] Department [place] [address] * (ABNORMAL) POCT hemoglobin A1c (05/18/2024 9:25 AM CDT) Hemoglobin A1C, POC 6.1 4.0 - 5.6 % Blood 05/18/2024 9:25 AM CDT us Prudence Medellin NP POINT OF CARE TEST ORDERA BLES Final Result * POCT glucose (05/18/2024 9:25 AM CDT) Glucose Blood, POC 73 mg/dL Blood 05/18/2024 9:25 AM CDT us Prudence Medellin NP POINT OF CARE TEST ORDERA BLES Final Result * (ABNORMAL) DIABETES EYE EXAM (04/17/2023 10:36 AM ASSOCIATE ART DIRECTOR) us Historical Provider HEALTH MAINTENANCE Final Result * PSA, total Blood (06/18/2022 8:04 AM CDT) SCRIBED PSA, Total 0.95 <=4.00 - NA EXTERNAL LAB Blood 06/18/2022 8:04 AM CDT us Historical Provider LAB BLOOD ORDERABLES Edit ed Result - Final EXTERNAL LAB from Last 3 Months or Most Recently Relevant to Health Maintenance Insurance [facility] MEDICARE ADVANTAGE [facility] MEDICARE ADVANTAGE Care Teams Talent Program Manager Relationship Specialty Start Date End Date Myles Osorio MD [address] [facility] [address] [place] [address] [facility] - General 05/09/16
--- OUTSIDE RECORDS SUMMARY | 2024-05-25 14:35 | XMS_ITS | Clinical Summary ---
Author Organization [facility] Address [address] [place] [address] Care Team Providers Care Quarry Boss Name Role Phone Myles Osorio MD Primary Care Provider [phone] Allergies No known active allergies Medications Continuous Blood Gluc Sensor (DEXCOM G6 SENSOR) Misc Change every 10 days 0 Active Continuous Blood Gluc Transmit (DEXCOM G6 TRANSMITTER) Misc Use as directed to monitor glucose 0 Active icosapent ethyl (VASCEPA) 1 G capsule TAKE 2 CAPSULES BY MOUTH 2 TIMES DAILY 0 Active hydroCHLOROthia zide 12.5 MG tablet TAKE ONE TABLET BY MOUTH EVERY DAY 0 Active Insulin Disposable Pump (OMNIPOD DASH 5 PACK PODS) Misc Change pod every 1.5 days 0 Active simvastatin 40 MG tablet TAKE ONE TABLET BY MOUTH DAILY 2 Active metFORMIN ER 500 MG 24 hr tablet TAKE 2 TABLETS BY MOUTH TWICE DAILY 2 Active lisinopril 40 MG tablet TAKE 1 TABLET BY MOUTH DAILY 0 Active pantoprazole EC 40 MG tablet Take [...] hours as needed for Pain. 30 tablet 4 Active HYDROcodone-ingrid taminophen (NORCO) 5-325 MG tabletIndicatio ns:Acute Pain < 3 Day Supply Take 1 tablet by mouth every 6 (six) hours as needed for Pain. Indications: Acute Pain < 3 Day Supply 12 tablet 5 05/25/19 25 Active Problems Problem Noted Date Diagnosed Date Right shoulder pain 01/17/2020 Encounters Date Type Department Care Team Description 05/23/2024 Telephone [facility] Orthopedic Surgery [facility] [address] [facility] [address] [place] [address] Kiko Sarah DO Follow Up Call 05/21/2024 12:16 PM CDT - 05/21/2024 1:58 PM CDT Emergency [facility] Emergency Room [address] [place] [address] MD Ankle Injury (Right) Discharge Disposition: Home or Self Care (Routine Discharge) 05/21/2024 Travel from Last 3 Months Social History Tobacco Use Types Packs/Day Years Used Date Smoking Tobacco: Former Cigarettes Q uit: 1989 Smokeless Tobacco: Never Sex and Gender Information Value Date Recorded Sex Assigned at Male 05/21/2024 12:22 PM CDT Legal Sex Male 6:45 PM CDT Gender Identity Not on file Sexual Orientation Not on file Last Filed Vital Signs Vital Sign Reading Time Taken Comments Blood Pressure 150/71 05/21/2024 1:01 PM CDT Pulse 76 05/21/2024 12:23 PM CDT Temperature 36.8 C (98.3 F) 05/21/2024 12:23 PM CDT Respiratory Rate 20 05/21/2024 12:23 PM CDT Oxygen Saturation 95% 05/21/2024 1:01 PM CDT Inhaled Oxygen Concentration - - Weight 108.9 kg (240 lb) 05/21/2024 12:23 PM CDT Height 175.3 cm (5' 9 ) 05/21/2024 12:23 PM CDT Body Mass Index 35.44 05/21/2024 12:23 PM CDT Plan of Treatment Health Maintenance Due Date Last Done Comments Colorectal Cancer Screening Colonoscopy (10 Years) 1955 Hepatitis C 1972 AAA SCREENING 12/23/2019 Annual Medicare Wellness Visit 12/23/2019 COVID-19 Vaccine ( season) 2023 01/07/2023, 12/11/2021, 12/07/2020, Additional history exists PHQ-2 (Physician [place]) 02/10/2024 DTaP, Tdap and Td Vaccines (2 - Td or Tdap) 12/12/2031 12/11/2021 Zoster Vaccines Completed 07/04/2020, 02/22/2020 RSV Immunization or 60+ Years Completed 01/07/2023 Pneumococcal Vaccine: 50+ Years Completed 06/15/2023, 01/11/2020 Meningococcal B Vaccine Aged Out No l onger eligible based on patient's age to complete this topic Meningococcal Vaccine Aged Out No ciarra eliana eligible based on patient's age to complete this topic RSV Immunizations Under 20 Months Aged Out No longer eligible based on patient's age to complete this topic Medical Devices Implanted Type Area Mental Measurements Teacher Device Identifier Shelf Expiration Date Model / Serial / Lot Pump Pump Description:Insulin pump Procedures Procedure Name Priority Date/Time Associated Diagnosis Comments SPLINT APPLICATION Routine 05/21/2024 1: 27 PM CDT XR ANKLE RT 2V STAT 05/21/2024 12:46 PM CDT XR TIBIA+FIBULA RT 2V STAT 05/21/2024 12:46 PM CDT from Last 3 Months Results * Splint Application (05/21/2024 1:27 PM CDT) Narrative Erik Way MD - 05/21/2024 1:[address] MD 05/21/2024 1:46 PM Splint Application Date/Time: 05/21/2024 1:27 PM Performed by: Erik Way MD Authorized by: Erik Way MD Pre-procedure details: Distal neurologic exam: Normal Distal perfusion: brisk capillary refill Procedure details: Location: Knee Knee location: R knee Splint type: Knee immobilizer Supplies: Prefabricated splint Attestation: Splint applied and adjusted personally by me Post-procedure details: Distal neurologic exam: Unchanged Distal perfusion: brisk capillary refill Procedure completion: Tolerated well, no immediate complications Erik Way MD PROCEDURE/MINOR PEARL RGICAL ORDERABLES Final Result * XR ANKLE RT 2V (05/21/2024 12:46 PM CDT) Anatomical Region Laterality Modality Ankle Radiographic Sallie ging 05/21/2024 12:5 9 PM CDT Impressions 05/21/2024 1:00 PM CDT IMPRESSION: No acute findings Ordered By: ERIK WAY Interpreted By: Solis Duque MD, 05/21/2024 12:59 PM Narrative 05/21/2024 1:[address]T [address] [place] [address] 2 VIEWS OF THE RIGHT ANKLE Clinical History: Pain Comparison: None Findin views of the right ankle demonstrate the bony elements to be intact. There is no evidence of fracture or dislocation. The ankle mortise is symmetric. The surrounding soft tissues appear normal. Procedure Note Solis Duque MD - 05/21/[address] [place] [address] 2 VIEWS OF THE RIGHT ANKLE Clinical History: Pain Comparison: None Findin views of the right ankle demonstrate the bony elements to be intact.There is no evidence of fracture or dislocation. The ankle mortise issymmetric. The surrounding soft tissues appear normal. IMPRESSION: No acute findings Ordered By: ERIK WAY Interpreted By: Solis Duque MD, 05/21/2024 12:[address] MD GENERAL IMAGING Fi nal Result * XR TIBIA+FIBULA RT 2V (05/21/2024 12:46 PM CDT) Anatomical Region Laterality Modality TibFib Radiographic Sallie ging 05/21/2024 1:00 PM CDT Impressions 05/21/2024 1:00 PM CDT IMPRESSION: Nondisplaced oblique fracture of the proximal fibula Ordered By: ERIK WAY Interpreted By: Solis Duque MD, 05/21/2024 1:00 PM Narrative 05/21/2024 1:00 PM CDT [address] [place] [address] 2 VIEWS OF THE RIGHT LOWER LEG Clinical History: Injury, pain Comparison: None 2 views of the right lower leg demonstrate a nondisplaced oblique fracture of the proximal fibula. The tibia appears intact. The surrounding soft tissues appear normal Procedure Note Solis Duque MD - 05/21/[address] [place] [address] 2 VIEWS OF THE RIGHT LOWER LEG Clinical History: Injury, pain Comparison: None 2 views of the right lower leg demonstrate a nondisplaced oblique fractureof the proximal fibula. The tibia appears intact. The surrounding softtissues appear normal IMPRESSION: Nondisplaced oblique fracture of the proximal fibula Ordered By: REIK WAY Interpreted By: Solis Duque MD, 05/21/2024 1:[address] MD GENERAL IMAGING Fi nal Result from Last 3 Months Insurance U[employer] Care Teams Quarry Boss Relationship Specialty Start Date End Date Myles Osorio MD [address] [place] [address] PCP - General INTERNAL MEDICINE 01/17/20
--- OUTSIDE RECORDS SUMMARY | 2024-05-25 14:35 | XMS_ITS | Clinical Summary ---
Author Organization [facility] [address] [place] [address] [place] [phone] Care Team Providers Care Design Engineer Agricultural Equipment Name Role Phone Myles Osorio MD Primary Care Provider [phone] Allergies No known active allergies Medications aspirin 81 mg tablet Take one by mouth one time per day [address] (PROTONIX) 40 mg EC tablet Take 1 tablet (40 mg total) by mouth daily 1 018 Active DEXCOM G6 LINE ANALYST misc Use as directed to monitor glucose 1 each 019 Active blood glucose diagnostic (ONETOUCH ULTRA TEST) stripIndication s:Type 2 diabetes mellitus with hyperglycemia, with long-term current use of insulin ([facility]) Use to test glucose 3 times daily 300 each 1 019 Active BD ULTRA-FINE MINI PEN NEEDLE 31 gauge x 3/16 needleIndicatio ns:Type 2 diabetes mellitus with hyperglycemia, with long-term current use of insulin (HCC) Use with insulin 4 times daily 400 each 1 019 Active lancets (ONETOUCH DELICA LANCETS) 33 gauge miscIndications :Type 2 diabetes mellitus with hyperglycemia, with long-term current use of insulin ([facility]) Use to test glucose 3 times daily 300 each 1 Active HYDROcodone-antonia taminophen (NORCO) 5-325 mg per [...] hyperglycemia, with long-term current use of insulin ([facility]),Insulin pump status CHANGE POD EVERY [...] hyperglycemia, with long-term current use of insulin ([facility]) TAKE 2 TABLETS BY MOUTH TWICE DAILY 360 tablet 3 Active Dexcom G6 Sensor deviceIndicatio ns:Type 2 diabetes mellitus with hyperglycemia, with long-term current use of insulin (HCC) CHANGE EVERY 10 DAYS 9 each 3 024 Active LORazepam (ATIVAN) 0.5 mg tablet TAKE 1 TABLET BY MOUTH ONCE DAILY NEEDED FOR ANXIETY Active methocarbamoL (ROBAXIN) 750 mg tablet TAKE 1 TABLET BY MOUTH 3 TIMES A DAY NEEDED FOR MUSCLE SPASMS Active insulin U-500 syringe-needle 1/2 mL 31 gauge x 15/64 syringeIndicati ons:Type 2 diabetes mellitus with hyperglycemia, with long-term current use of insulin ([facility]) Use to inject U500 insulin twice daily if pump failure 100 each 3 024 Active blood-glucose transmitter (Dexcom G6 Transmitter) deviceIndicatio ns:Type 2 diabetes mellitus with hyperglycemia, with long-term current use of insulin ([facility]) Change transmitter every 90 days 1 each 3 024 Active hydroCHLOROthia zide 12.5 mg tabletIndicatio ns:Type 2 diabetes mellitus with hyperglycemia, with long-term current use of insulin ([facility]) TAKE 1 TABLET BY MOUTH DAILY 90 tablet 3 025 Active lisinopriL (PRINIVIL,ZESTR [place]) 40 mg tabletIndicatio ns:Type 2 diabetes mellitus with hyperglycemia, with long-term current use of insulin ([facility]) TAKE 1 TABLET BY MOUTH DAILY 90 tablet 3 025 Active simvastatin (ZOCOR) 40 mg tabletIndicatio ns:Type 2 diabetes mellitus with hyperglycemia, with long-term current use of insulin ([facility]) TAKE 1 TABLET BY MOUTH DAILY 90 tablet 3 025 Active tirzepatide (MOUNJARO) 7.5 mg/0.5 mL pen injector injectionIndica tions:Type 2 diabetes mellitus with hyperglycemia, with long-term current use of insulin ([facility]) Inject 0.5 mL (7.5 mg total) under the skin every 7 days 6 mL 3 025 2025 Active Mounjaro 5 mg/0.5 mL pen injectorIndicat ions:Type 2 diabetes mellitus with hyperglycemia, with long-term current use of insulin ([facility]) INJECT THE CONTENTS OF ONE PEN SUBCUTANEOUSLY WEEKLY DIRECTED 6 mL 3 024 2024 Discontinued Active Problems Problem Noted Date Diagnosed Date Class 2 severe obesity due t o excess calories with serious comorbidity and body mass index (BMI) of 35.0 to 35.9 in adult 12/18/2022 Assessment & Plan (12/18/2022 10:13 AM CASUALTY CLAIM ADJUSTER): Will resume going to gym as he's [...] hrs Assessment & Plan (01/25/2024 3:38 PM CASUALTY CLAIM ADJUSTER): Green U500 insulin syringes were sent to [...] time. Assessment & Plan (12/18/2022 10:13 AM CASUALTY CLAIM ADJUSTER): No pump setting changes at this time. [...] Thursday Assessment & Plan (03/20/2019 11:11 AM CASUALTY CLAIM ADJUSTER): Reduce SF to 18, lower target to 100. Assessment & Plan (12/30/2018 2:39 PM CASUALTY CLAIM ADJUSTER): Insulin pump setting calculations as follows: Basal [...] 2gm daily. Last lipid panel: 07/30/23 LDL=24, CJ=002 Will update labs. Verified that he uses mychart. Aware to check results/results letter in [employer]. Will contact by phone if needed. Assessment & Plan (01/25/2024 3:17 PM CASUALTY CLAIM ADJUSTER): Chronic problem. Currently taking Simvastatin 40mg & vascepa 2gm daily. Last lipid panel: 07/30/23 LDL=24, LT=989 Assessment & Plan (11/02/2023 8:56 AM CDT): Chronic problem. Currently taking Simvastatin 40mg & vascepa 2gm daily. Last lipid panel: 07/30/23 LDL=24, BN=690 Assessment & Plan (04/28/2023 9:00 AM CDT): Chronic problem. Currently taking Simvastatin 40mg & vascepa 2gm daily. Assessment & Plan (12/18/2022 10:13 AM CASUALTY CLAIM ADJUSTER): Chronic problem. Currently taking Simvastatin 40mg & vascepa 2gm daily. Assessment & Plan (07/01/2022 9:45 AM CDT): Chronic problem. Improved on current Simvastatin 40mg & vascepa 2gm bid. Last lipid panel: 05/07/21 LDL=24, ZO=581. Will update labs today. Verified that he uses [employer]. Aware to check results/results letter in [employer]. Will contact by phone if needed. Assessment [...] Vascepa Assessment & Plan (01/26/2020 10:19 AM CASUALTY CLAIM ADJUSTER): He will have lipid panel done in [...] therapy. Assessment & Plan (03/20/2019 11:11 AM CASUALTY CLAIM ADJUSTER): Trigs elevated. Focus on diet, exercise and [...] Will update labs. Verified that he uses [employer]. Aware to check results/results letter in [employer]. Will contact by phone if needed. UTD [...] infection. Assessment & Plan (01/25/2024 3:39 PM CASUALTY CLAIM ADJUSTER): Chronic problem. A1c at goal but tim [...] little higher hemoglobin A1c Emphasized to Mr. Vuongt the need for him to bolus with [...] infection. Assessment & Plan (12/18/2022 10:13 AM CASUALTY CLAIM ADJUSTER): Chronic problem. A1c tim from 6.5% to [...] well controlled. Would like to switch from [employer] to [employer]. To send [employer] message or call when he starts last [...] weekly Assessment & Plan (03/06/2020 3:45 PM CASUALTY CLAIM ADJUSTER): Will send rx for U500 vial to local pharmacy. He will poultry picker 1 vial with free voucher. Return [...] 6 Assessment & Plan (01/26/2020 3:35 PM CASUALTY CLAIM ADJUSTER): A1c 9.1 worsening. Basal > bolus. There [...] summer. Assessment & Plan (03/20/2019 11:13 AM CASUALTY CLAIM ADJUSTER): A1c 9.1. No change. Not being attentive to types of food eating, not as much exercise recently. Not bolusing for all carbs so difficult to determine exact pattern. Education provided to bolus for all carbs, BG at least tid. Will adjust bolus settings. Assessment & Plan (01/17/2019 4:19 PM CASUALTY CLAIM ADJUSTER): Demonstrates appropriate ability to fill and insert infusion set. Understands concepts of basal vs. Bolus and is able to enter BG and carbs into pump. Has been provided with contact information for insulin pump sales representative church furniture and how to reach our office after [...] help improve glycemic control. Advised to contact [employer] today for new transmitter. Will await CGM [...] discussed. 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 Currently taking Lisinopril 40mg daily, amlodipine 10mg daily & HCTZ 12.5mg daily No changes at this time. Will update labs. Verified that he uses [employer]. Aware to check results/results letter in [employer]. Will contact by phone if needed. Assessment & Plan (01/25/2024 3:18 PM CASUALTY CLAIM ADJUSTER): Chronic problem. Currently taking Lisinopril 40mg daily, [...] time. Assessment & Plan (12/18/2022 10:07 AM CASUALTY CLAIM ADJUSTER): Chronic problem. Elevated initially but returned to [...] update labs today. Verified that he uses [employer]. Aware to check results/results letter in [employer]. Will contact by phone if needed. Assessment [...] plan Assessment & Plan (03/20/2019 11:10 AM CASUALTY CLAIM ADJUSTER): Controlled on current medications. Continue plan. Assessment [...] ARB Assessment & Plan (03/10/2017 3:02 PM CASUALTY CLAIM ADJUSTER): Goal blood pressure is less than 140/85 [...] medications. Assessment & Plan (03/10/2017 3:02 PM CASUALTY CLAIM ADJUSTER): Goal of treatment , LDL cholesterol less [...] Department Care Team Description 05/23/2024 Orders Only [facility] Diabetes and Endocrinology [address] [place] [phone] Prudence Medellin NP Type 2 diabetes mellitus with hyperglycemia, with long-term current use of insulin (HCC) (Primary Dx) 05/20/2024 Results Follow-Up [facility] Diabetes and Endocrinology [address] [place] [phone] Prudence Medellin NP 05/18/2024 10:15 AM CDT Lab [facility] Outpatient Lab at [address] [phone] Hypertension associated with diabetes (HCC) (Primary Dx); Type 2 diabetes mellitus with hyperglycemia, with long-term current use of insulin (HCC) 05/18/2024 10:13 AM CDT - 05/18/2024 11:59 PM CDT Hospital Encounter [address] [address] Type 2 diabetes mellitus with hyperglycemia, with long-term current use of insulin (HCC); Hyperlipidemia associated with type 2 diabetes mellitus (HCC); Hypertension associated with diabetes (HCC) Discharge Disposition: Discharge to home or self care 05/18/2024 9:30 AM CDT Office Visit [facility] Diabetes and Endocrinology [address] [place] [phone] Prudence Medellin, RENZO Type 2 diabetes mellitus with hyperglycemia, with long-term current use of insulin (HCC) (Primary Dx); Hypertension associated with diabetes (HCC); Hyperlipidemia associated with type 2 diabetes mellitus (HCC); Insulin pump status 03/29/2024 [facility]phone [facility] [address] [place] [address] [address] [address] Verna Quiles MD from Last 3 Months Surgical History Surgery Date Site/Laterality Comments CARPAL TUNNEL RELEASE EYE SURGERY Medical History Medical History Date Comments Hyperlipidemia Hyperlipidemia Diabetes mellitus (HCC) Diabetes Hypertension Hypertension Calculus of kidney 2013 nephrolithias is Hx Other Medical Not claustropho [...] on file Legal Sex Male 12:27 AM CASUALTY CLAIM ADJUSTER Gender Identity Not on file Sexual Orientation [...] 05/18/2024 9:22 AM CDT Plan of Treatment Health Maintenance Due Date Last Done Comments Colon Cancer Screening-Colonoscopy 1955 Hepatitis C Screening 1955 Hepatitis B Screening 1972 Abdominal Aortic Aneurysm (A AA) Screen 12/23/2019 Well Visit 65+ 12/23/2019 Pneumococcal vaccine 65+ (2 of 2 - PPSV23) 03/07/2020 01/11/2020 Covid-19 Vaccine (4 - 2023-2 5 season) 2023 12/07/2020, 04/23/2020, 03/26/2020 Dilated Eye Exam 04/16/2024 04/17/2023, 11/2022, 04/15/2021, Additional history exists Prostate Cancer Screening-PSA 06/18/2024 06/18/2022, 04/23/2021 Depression Screening 07/29/2024 07/30/2023, 05/07/2021, 05/10/2020, Additional history exists Fall Risk Assessment 07/29/2024 07/30/2023 Influenza Vaccine (Season Ended) 2024 02/09/2022, 01/09/2021, 10/29/2020, Additional history exists Foot Exam 11/01/2024 11/02/2023, 06/10, 05/07/2021, Additional history exists Hemoglobin A1C 11/17/2024 05/18/2024, 01/09, 11/02/2023, Additional history exists Albumin Creatinine Ratio, Urine 05/18/2025 05/18/2024, 07/30/2023, 06/18/2022, Additional history exists Lipid Panel 05/18/2025 05/18/2024, 07/11, 06/18/2022, Additional history exists eGFR 05/18/2025 05/18/2024, 07/11, 06/18/2022, Additional history exists DTaP/Tdap/Td Vaccine (2 - [...] DIABETES EYE EXAM Routine 04/17/2023 10:36 AM CASUALTY CLAIM ADJUSTER PSA, TOTAL Routine 06/18/2022 8:04 AM CDT [...] CDT 05/18/2024 7:19 PM CDT Prudence Medellin CHEMICAL RECLAMATION EQUIPMENT OPERATOR LAB BLOOD ORDERABLES [place] Result Performing Organization Address [facility] de Phone Number ARLENE PADILLA [address] [address] [place] [address] * (ABNORMAL) Albumin Creatinine Ratio, Urine (05/18/2024 10:13 AM CDT) Albumin Ur 267.3 mg/L Comment: Interpretive Data No reference range established. Current interpretive data was last revised 2018. Creatinine Ur 53.2 mg/dL [facility] Comment: Interpretive Data No reference range established. Current interpretive data was last revised 2018. Albumin Creatinine Ratio, Ur 502(H) 1 - 29 mg/g [facility] Urine 05/18/2024 10:1 3 AM CDT 05/18/2024 7:16 PM CDT us Prudence Medellin CHEMICAL RECLAMATION EQUIPMENT OPERATOR LAB URINE ORDERABLES Min[place] l Result Performing Organization Address [facility] de Phone Number MARLINEJW [address] [address] [place] [address] * (ABNORMAL) Lipid panel (05/18/2024 10:13 AM [...] revised on 2017. Triglycerides 321(H) <=149 mg/dL ARLENE Comment: Interpretive Data Ages < [...] on 2017. HDL 32(L) >=40 mg/dL ARLENE PADILLA Comment: Interpretive Data [...] NCEP Expert Panel. Circulation 2004;110:227 3. Karlos Neville et al. MIRANDA Cardiol. 2020 June 09;5(5):540-548. doi: [email or web address] Current Interpretive Data was last revised on 2023. Non-HDL Cholesterol 105 mg/dL [facility] Comment: Interpretive Data Ages < or = [...] 05/18/2024 7:16 PM CDT us Prudence Medellin CHEMICAL RECLAMATION EQUIPMENT OPERATOR LAB BLOOD ORDERABLES [facility] Result [facility] [address] [address] [place] [address] * (ABNORMAL) Comprehensive metabolic panel (05/18/2024 10:13 AM CDT) Sodium 141 135 - 145 mmol/L Potassium, pl 4.4 3.3 - 4.9 mmol/L [facility] Chloride 104 97 - 110 mmol/L [facility] CO2 23 22 - 32 mmol/L [facility] Anion gap 14 2 - 15 mmol/L [facility] BUN 16 6 - 25 mg/dL [facility] Creatinine 0.78(L) 0.80 - 1.30 mg/dL [facility] Glucose 51(C) 70 - 199 mg/dL [facility] Comment: Critical Result called to and read [...] Prudence Medellin NP LAB BLOOD ORDERABLES Minna l Result ARLENE [address] [address] [place] [address] * (ABNORMAL) POCT hemoglobin A1c (05/18/2024 9:25 [...] (ABNORMAL) DIABETES EYE EXAM (04/17/2023 10:36 AM CASUALTY CLAIM ADJUSTER) Historical Provider HEALTH MAINTENANCE Final Result * PSA, total Blood (06/18/2022 8:04 AM CDT) SCRIBED PSA, Total 0.95 <=4.00 - NA EXTERNAL LAB Blood 06/18/2022 8:04 AM CDT Historical Provider LAB BLOOD ORDERABLES Edit ed Result - Final EXTERNAL LAB from Last 3 Months or Most Recently Relevant to Health Maintenance Insurance [employer] MEDICARE ADVANTAGE [facility] MEDICARE ADVANTAGE Care Teams Design Engineer Agricultural Equipment Relationship Specialty Start Date End Date Myles Osorio MD [address] [facility] [address] [place] [phone] PCP - General 05/09/16
[2024-05-25 17:29] LABS: Hemoglobin A1C 6.5 % (<5.7)
[2024-05-25 18:02] LABS: Alanine Aminotransferase 28 U/L (6-50); Albumin Level 4.1 g/dL (3.5-5.1); Alkaline Phosphatase 73 U/L (38-126); Anion Gap 13 mmol/L (4-12); Aspartate Amino Transferase 28 U/L (17-59); Bilirubin,Total 0.5 mg/dL (0.2-1.3); Blood Urea Nitrogen 20 mg/dL (9-20); CRP 1.6 mg/dL (<1.0); Calcium 9.7 mg/dL (8.4-10.2); Carbon Dioxide 25 mmol/L (22-30); Chloride 102 mmol/L (98-107); Estimated Glomerular Filt Rate > 60; Glucose 128 mg/dL (65-110); Potassium 4.3 mmol/L (3.4-5.0); Sodium 140 mmol/L (137-145)
== END 2024-05-25 13:21 | disposition home or self-care (01) ==
LOC: ANHSURGERY 13:26
PROVIDERS: PCP Nurse Practitioner; Visit Provider Orthopaedic Surgery
DX: R94.31 Abnormal electrocardiogram [ECG] [EKG] (principal); S82.891A Other fracture of right lower leg, initial encounter for closed fracture; X58.XXXA Exposure to other specified factors, initial encounter
CPT/HCPCS: 36415; 80053; 83036; 85027; 86140; 93005

== ENCOUNTER 2024-05-27 00:23 | Day surgery (SDC) | payer MEDICARE, SELFPAY ==
--- NOTE | 2024-05-25 10:40 | PC.NURSE ---
Report to the Outpatient Waiting Room, entrance under the green pavilion located off [facility], at time __1200 noon on date __05/27/24 . Planned Procedure Time: _2:00 pm .? Time changes happen often and if your time is changed the preop area will call you the afternoon before. - You and your visitor will be asked to self-screen and do not enter if you have any COVID symptoms. Please call surgeon if you need to reschedule. - A mask is optional within the hospital at this time. Patients may have clear liquids (water, carbonated beverages, clear teas, apple juice) until 3 hours prior to surgery ( 11 am) with a maximum of 20 ounces. - No food from midnight until time of surgery and no smoking, or chewing tobacco (or any form of nicotine). No chewing gum, candy or mints. - Take only the following medications with a SIP of water on the morning of surgery: _AMLODIPINE, DO NOT STOP ANY OF YOUR OTHER PRESCRIPTION MEDICATIONS PRIOR TO SURGERY EXCEPT THE FOLLOWING Hold all vitamins and supplements for 3 days per anesthesiologist. Medications to discontinue per physician ___NABUMETONE PT STATES LAST DOSE WAS IN APRIL. ASPIRIN PT STATES LAST DOSE 05/23/24 CONTINUE USUAL BASAL RATE ON INSULIN PUMP Please no make-up, nail georgian, hairspray, perfume, deodorant, or body powder the day of surgery.? No jewelry (including any body piercings) or valuables the day of surgery, leave them at home.? Please take a shower or bath the night before, or the morning of, surgery with an antibacterial soap.? Wear comfortable, loose fitting clothing.? Children are encouraged to wear pajamas. - Jewelry must be removed prior to entering the operating room.? Rings and piercings that are not removed may be cut off. - The hospital will not accept responsibility for valuables.? - Please leave all valuables, including medications, at home the day of surgery. If you are going home after surgery, a licensed motorcycle delivery driver must drive you home.? - NO public transportation without another adult if you receive anesthesia. - We recommend that an adult stay with you for 24 hours following discharge. - We also recommend that you do not drive, make important decision, drink alcoholic beverages, or take any drugs that were not prescribed by your health care provider for at least 24 hours after your discharge time. Follow any additional instructions given to you from your surgeon. Telephone instructions given to __patient and asked if any additional questions and then verbalized understanding. Patient advised to call surgeon office or pre surgery nurse liaison [phone] if any additional questions.
[2024-05-25 11:10] VITALS: BMI 34.8
[2024-05-27] VITALS (10 sets, daily range): BP systolic 113–163; BP diastolic 54–66; PULSE 86–99; RESP 10–18; TEMP 36.6–36.9; O2SAT 91–100; BMI 34.4
--- NOTE | ~2024-05-27 | XR_ITS ---
INTRAOPERATIVE FLUOROSCOPY: CLINICAL HISTORY: 68 years old Male; ORIF RIGHT ANKLE FX PROCEDURE COMMENTS: Limited intraoperative fluoroscopy of the right ankle was performed. CUMULATIVE DOSE: 2.01 mGy FLUOROSCOPY TIME: 36 seconds FINDINGS/IMPRESSION: Please refer to operative note for further details. Reviewed, dictated and finalized at location A.
--- OUTSIDE RECORDS SUMMARY | 2024-05-27 00:26 | XMS_ITS | Referral Summary ---
Author Organization [address] Address [address] [place] [id number] Care Team Providers Care Marketing Communications Assistant Name Role Phone Myles Osorio MD Primary Care Provider [phone]- [phone] Encounters Date Type Department Care Team Description 05/23/2024 Orders Only [facility] Diabetes and Endocrinology [address] [place] [id number] Prudence Medellin NP Type 2 diabetes mellitus with hyperglycemia, with long-term current use of insulin (HCC) (Primary Dx) 05/20/2024 Results Follow-Up [facility] Diabetes and Endocrinology [address] [place] [phone] Prudence Medellin NP 05/18/2024 10:13 AM CDT - 05/18/2024 11:59 PM CDT Hospital Encounter [address] [address] Type 2 diabetes mellitus with hyperglycemia, with long-term current use of insulin (HCC); Hyperlipidemia associated with type 2 diabetes mellitus (HCC); Hypertension associated with diabetes (HCC) Discharge Disposition: Discharge to home or self care 05/18/2024 10:15 AM CDT Lab [facility] Outpatient Lab at [address] [phone] Hypertension associated with diabetes (HCC) (Primary Dx); Type 2 diabetes mellitus with hyperglycemia, with long-term current use of insulin (HCC) 05/18/2024 9:30 AM CDT Office Visit [facility] Diabetes and Endocrinology [address] [place] [address] Prudence Medellin, RENZO Type 2 diabetes mellitus with hyperglycemia, with long-term current use of insulin ([facility]) (Primary Dx); Hypertension associated with diabetes (HCC); Hyperlipidemia associated with type 2 diabetes mellitus (HCC); Insulin pump status 03/29/2024 Telephone [facility] [id number] [place] [address] [address] [address] Verna Quiles MD from Last 3 Months Allergies No known active allergies Medications aspirin 81 mg tablet Take one by mouth one time per day [address] (PROTONIX) 40 mg EC tablet Take 1 tablet (40 mg total) by mouth daily 1 018 Active DEXCOM G6 COORDINATE MEASURING MACHINE PROGRAMMER misc Use as directed to monitor glucose 1 each Active blood glucose diagnostic (ONETOUCH ULTRA TEST) stripIndication s:Type 2 diabetes mellitus with hyperglycemia, with long-term current use of insulin ([facility]) Use to test glucose 3 times daily 300 each 1 Active BD ULTRA-FINE MINI PEN NEEDLE 31 gauge x 3/16 needleIndicatio ns:Type 2 diabetes mellitus with hyperglycemia, with long-term current use of insulin ([facility]) Use with insulin 4 times daily 400 each Active lancets (ONETOUCH DELICA LANCETS) 33 gauge miscIndications :Type 2 diabetes mellitus with hyperglycemia, with long-term current use of insulin ([facility]) Use to test glucose 3 [...] hyperglycemia, with long-term current use of insulin ([facility]),Insulin pump status CHANGE POD EVERY [...] hyperglycemia, with long-term current use of insulin ([facility]) TAKE 2 TABLETS BY MOUTH TWICE DAILY 360 tablet 3 Active Dexcom G6 Sensor deviceIndicatio ns:Type 2 diabetes mellitus with hyperglycemia, with long-term current use of insulin ([facility]) CHANGE EVERY 10 DAYS 9 [...] hyperglycemia, with long-term current use of insulin ([facility]) Use to inject U500 insulin twice daily if pump failure 100 each 3 024 Active blood-glucose transmitter (Dexcom G6 Transmitter) deviceIndicatio ns:Type 2 diabetes mellitus with hyperglycemia, with long-term current use of insulin ([facility]) Change transmitter every 90 days 1 each 3 024 Active hydroCHLOROthia zide 12.5 mg tabletIndicatio ns:Type 2 diabetes mellitus with hyperglycemia, with long-term current use of insulin ([facility]) TAKE 1 TABLET BY MOUTH DAILY 90 tablet 3 025 Active lisinopriL (PRINIVIL,ZESTR [place]) 40 mg tabletIndicatio ns:Type 2 diabetes mellitus with hyperglycemia, with long-term current use of insulin ([facility]) TAKE 1 TABLET BY MOUTH DAILY 90 tablet 3 025 Active simvastatin (ZOCOR) 40 mg tabletIndicatio ns:Type 2 diabetes mellitus with hyperglycemia, with long-term current use of insulin ([facility]) TAKE 1 TABLET BY MOUTH DAILY 90 tablet 3 025 Active tirzepatide (MOUNJARO) 7.5 mg/0.5 mL pen injector injectionIndica tions:Type 2 diabetes mellitus with hyperglycemia, with long-term current use of insulin ([facility]) Inject 0.5 mL (7.5 mg total) under the skin every 7 days 6 mL 3 025 2025 Active Mounjaro 5 mg/0.5 mL pen injectorIndicat ions:Type 2 diabetes mellitus with hyperglycemia, with long-term current use of insulin ([facility]) INJECT THE CONTENTS OF ONE PEN SUBCUTANEOUSLY WEEKLY DIRECTED 6 mL 3 024 2024 Discontinued Active Problems Problem Noted Date Diagnosed Date Class 2 severe obesity due t o excess calories with serious comorbidity and body mass index (BMI) of 35.0 to 35.9 in adult 12/18/2022 Assessment & Plan (12/18/2022 10:13 AM DOLPHIN TRAINER): Will resume going to gym as he's [...] hrs Assessment & Plan (01/25/2024 3:38 PM DOLPHIN TRAINER): Green U500 insulin syringes were sent to [...] time. Assessment & Plan (12/18/2022 10:13 AM DOLPHIN TRAINER): No pump setting changes at this time. [...] Thursday Assessment & Plan (03/20/2019 11:11 AM DOLPHIN TRAINER): Reduce SF to 18, lower target to 100. Assessment & Plan (12/30/2018 2:39 PM DOLPHIN TRAINER): Insulin pump setting calculations as follows: Basal [...] 2gm daily. Last lipid panel: 07/30/23 LDL=24, ND=513 Will update labs. Verified that he uses [facility]. Aware to check results/results letter in [facility]. Will contact by phone if needed. Assessment & Plan (01/25/2024 3:17 PM DOLPHIN TRAINER): Chronic problem. Currently taking Simvastatin 40mg & vascepa 2gm daily. Last lipid panel: 07/30/23 LDL=24, JB=504 Assessment & Plan (11/02/2023 8:56 AM CDT): Chronic problem. Currently taking Simvastatin 40mg & vascepa 2gm daily. Last lipid panel: 07/30/23 LDL=24, HP=377 Assessment & Plan (04/28/2023 9:00 AM CDT): Chronic problem. Currently taking Simvastatin 40mg & vascepa 2gm daily. Assessment & Plan (12/18/2022 10:13 AM DOLPHIN TRAINER): Chronic problem. Currently taking Simvastatin 40mg & vascepa 2gm daily. Assessment & Plan (07/01/2022 9:45 AM CDT): Chronic problem. Improved on current Simvastatin 40mg & vascepa 2gm bid. Last lipid panel: 05/07/21 LDL=24, OA=645. Will update labs today. Verified that he uses [facility]. Aware to check results/results letter in [facility]. Will contact by phone if needed. Assessment [...] Vascepa Assessment & Plan (01/26/2020 10:19 AM DOLPHIN TRAINER): He will have lipid panel done in [...] therapy. Assessment & Plan (03/20/2019 11:11 AM DOLPHIN TRAINER): Trigs elevated. Focus on diet, exercise and [...] Will update labs. Verified that he uses [facility]. Aware to check results/results letter in [facility]. Will contact by phone if needed. UTD [...] infection. Assessment & Plan (01/25/2024 3:39 PM DOLPHIN TRAINER): Chronic problem. A1c at goal but tim [...] infection. Assessment & Plan (12/18/2022 10:13 AM DOLPHIN TRAINER): Chronic problem. A1c tim from 6.5% to [...] switch from Trulicity to Mounjaro. To send [employer] message or call when he starts last [...] weekly Assessment & Plan (03/06/2020 3:45 PM DOLPHIN TRAINER): Will send rx for U500 vial to local pharmacy. 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 Return on [...] 6 Assessment & Plan (01/26/2020 3:35 PM DOLPHIN TRAINER): A1c 9.1 worsening. Basal > bolus. There [...] summer. Assessment & Plan (03/20/2019 11:13 AM DOLPHIN TRAINER): A1c 9.1. No change. Not being attentive to types of food eating, not as much exercise recently. Not bolusing for all carbs so difficult to determine exact pattern. Education provided to bolus for all carbs, BG at least tid. Will adjust bolus settings. Assessment & Plan (01/17/2019 4:19 PM DOLPHIN TRAINER): Demonstrates appropriate ability to fill and insert infusion set. Understands concepts of basal vs. Bolus and is able to enter BG and carbs into pump. Has been provided with contact information for insulin pump registration representative and how to reach our office [...] discussed. Assessment & Plan (03/10/2017 3:00 PM DOLPHIN TRAINER): Your Hba1c today was: 6.7 meaning a 3 month average sugar of : Your goal hba1c is under 7.0 to prevent prison diabetes complications ( eye , kidney and [...] 50 u ac Referred to CME / it manager Hypertension associated with diabetes 08/24/2012 Overview (05/14/2016): HYPERTENSION NOS Assessment & Plan (05/18/2024 10:04 AM CDT): Chronic problem. Currently taking Lisinopril 40mg daily, amlodipine 10mg daily & HCTZ 12.5mg daily No changes at this time. Will update labs. Verified that he uses [facility]. Aware to check results/results letter in [facility]. Will contact by phone if needed. Assessment & Plan (01/25/2024 3:18 PM DOLPHIN TRAINER): Chronic problem. Currently taking Lisinopril 40mg daily, [...] time. Assessment & Plan (12/18/2022 10:07 AM DOLPHIN TRAINER): Chronic problem. Elevated initially but returned to [...] update labs today. Verified that he uses [facility]. Aware to check results/results letter in [facility]. Will contact by phone if needed. Assessment [...] plan Assessment & Plan (03/20/2019 11:10 AM DOLPHIN TRAINER): Controlled on current medications. Continue plan. Assessment [...] ARB Assessment & Plan (03/10/2017 3:02 PM DOLPHIN TRAINER): Goal blood pressure is less than 140/85 [...] medications. Assessment & Plan (03/10/2017 3:02 PM DOLPHIN TRAINER): Goal of treatment , LDL cholesterol less [...] on file Legal Sex Male 12:27 AM DOLPHIN TRAINER Gender Identity Not on file Sexual Orientation [...] DIABETES EYE EXAM Routine 04/17/2023 10:36 AM DOLPHIN TRAINER PSA, TOTAL Routine 06/18/2022 8:04 AM CDT [...] 3 AM CDT 05/18/2024 7:19 PM CDT rPudence Medellin MOTORCYCLE SALES ASSOCIATE LAB BLOOD ORDERABLES [place] Result Performing Organization Address [facility] de Phone Number ARLENE [address] [facility] [address] * (ABNORMAL) Albumin Creatinine Ratio, Urine (05/18/2024 10:13 AM CDT) Albumin Ur 267.3 mg/L Comment: Interpretive Data No reference range established. Current interpretive data was last revised 2018. Creatinine Ur 53.2 mg/dL [facility] Comment: Interpretive Data No reference range established. Current interpretive data was last revised 2018. Albumin Creatinine Ratio, Ur 502(H) 1 - 29 mg/g [facility] Urine 05/18/2024 10:1 3 AM CDT 05/18/2024 7:16 PM CDT Prudence Medellin MOTORCYCLE SALES ASSOCIATE LAB URINE ORDERABLES [place] Result Performing Organization Address [facility] de Phone Number ARLENE [address] [address] [place] [address] * (ABNORMAL) Lipid panel (05/18/2024 10:13 AM [...] revised on 2017. Triglycerides 321(H) <=149 mg/dL [facility] Comment: Interpretive Data Ages < [...] NP LAB BLOOD ORDERABLES [place] Result [facility] [address] Department [place] [address] * (ABNORMAL) Comprehensive metabolic panel (05/18/2024 10:13 [...] 05/18/2024 7:16 PM CDT us Prudence Medellin MOTORCYCLE SALES ASSOCIATE LAB BLOOD ORDERABLES [place] Result [facility] [address] Department [place] [address] * (ABNORMAL) POCT hemoglobin A1c (05/18/2024 9:25 [...] (ABNORMAL) DIABETES EYE EXAM (04/17/2023 10:36 AM DOLPHIN TRAINER) us Historical Provider HEALTH MAINTENANCE Final Result * PSA, total Blood (06/18/2022 8:04 AM CDT) SCRIBED PSA, Total 0.95 <=4.00 - NA EXTERNAL LAB Blood 06/18/2022 8:04 AM CDT us Historical Provider LAB BLOOD ORDERABLES Edit ed Result - Final EXTERNAL LAB from Last 3 Months or Most Recently Relevant to Health Maintenance Insurance [facility] MEDICARE ADVANTAGE [facility] MEDICARE ADVANTAGE Care Teams Marketing Communications Assistant Relationship Specialty Start Date End Date Myles Osorio MD [address] [facility] [address] [place] [address] [facility] - General 05/09/16
--- OUTSIDE RECORDS SUMMARY | 2024-05-27 00:26 | XMS_ITS | Clinical Summary ---
Author Organization [facility] [address] [place] [address] [place] [id number] Care Team Providers Care Manager Of Housekeeping Name Role Phone Myles Osorio MD Primary Care Provider [phone] Allergies No known active allergies Medications aspirin 81 mg tablet Take one by mouth one time per day [address] (PROTONIX) 40 mg EC tablet Take 1 tablet (40 mg total) by mouth daily 1 018 Active DEXCOM G6 LINING LAYER misc Use as directed to monitor glucose 1 each 019 Active blood glucose diagnostic (ONETOUCH ULTRA TEST) stripIndication s:Type 2 diabetes mellitus with hyperglycemia, with long-term current use of insulin ([facility]) Use to test glucose 3 times [...] hyperglycemia, with long-term current use of insulin ([facility]) Use to test glucose 3 times [...] hyperglycemia, with long-term current use of insulin ([facility]),Insulin pump status CHANGE POD EVERY 1 [...] hyperglycemia, with long-term current use of insulin ([facility]) TAKE 2 TABLETS BY MOUTH TWICE [...] hyperglycemia, with long-term current use of insulin ([facility]) Use to inject U500 insulin twice daily if pump failure 100 each 3 024 Active blood-glucose transmitter (Dexcom G6 Transmitter) deviceIndicatio ns:Type 2 diabetes mellitus with hyperglycemia, with long-term current use of insulin ([facility]) Change transmitter every 90 days 1 each 3 024 Active hydroCHLOROthia zide 12.5 mg tabletIndicatio ns:Type 2 diabetes mellitus with hyperglycemia, with long-term current use of insulin ([facility]) TAKE 1 TABLET BY MOUTH DAILY 90 tablet 3 025 Active lisinopriL (PRINIVIL,ZESTR IL) 40 mg tabletIndicatio ns:Type 2 diabetes mellitus with hyperglycemia, with long-term current use of insulin ([facility]) TAKE 1 TABLET BY MOUTH DAILY 90 tablet 3 025 Active simvastatin (ZOCOR) 40 mg tabletIndicatio ns:Type 2 diabetes mellitus with hyperglycemia, with long-term current use of insulin ([facility]) TAKE 1 TABLET BY MOUTH DAILY 90 tablet 3 025 Active tirzepatide (MOUNJARO) 7.5 mg/0.5 mL pen injector injectionIndica tions:Type 2 diabetes mellitus with hyperglycemia, with long-term current use of insulin ([facility]) Inject 0.5 mL (7.5 mg total) under the skin every 7 days 6 mL 3 025 2025 Active Mounjaro 5 mg/0.5 mL pen injectorIndicat ions:Type 2 diabetes mellitus with hyperglycemia, with long-term current use of insulin ([facility]) INJECT THE CONTENTS OF ONE PEN SUBCUTANEOUSLY WEEKLY DIRECTED 6 mL 3 024 2024 Discontinued Active Problems Problem Noted Date Diagnosed Date Class 2 severe obesity due t o excess calories with serious comorbidity and body mass index (BMI) of 35.0 to 35.9 in adult 12/18/2022 Assessment & Plan (12/18/2022 10:13 AM SIGN ARTIST): Will resume going to gym as he's [...] hrs Assessment & Plan (01/25/2024 3:38 PM SIGN ARTIST): Green U500 insulin syringes were sent to [...] time. Assessment & Plan (12/18/2022 10:13 AM SIGN ARTIST): No pump setting changes at this time. [...] Thursday Assessment & Plan (03/20/2019 11:11 AM SIGN ARTIST): Reduce SF to 18, lower target to 100. Assessment & Plan (12/30/2018 2:39 PM SIGN ARTIST): Insulin pump setting calculations as follows: Basal [...] 2gm daily. Last lipid panel: 07/30/23 LDL=24, EP=254 Will update labs. Verified that he uses mychart. Aware to check results/results letter in [employer]. Will contact by phone if needed. Assessment & Plan (01/25/2024 3:17 PM SIGN ARTIST): Chronic problem. Currently taking Simvastatin 40mg & vascepa 2gm daily. Last lipid panel: 07/30/23 LDL=24, AW=200 Assessment & Plan (11/02/2023 8:56 AM CDT): Chronic problem. Currently taking Simvastatin 40mg & vascepa 2gm daily. Last lipid panel: 07/30/23 LDL=24, XZ=965 Assessment & Plan (04/28/2023 9:00 AM CDT): Chronic problem. Currently taking Simvastatin 40mg & vascepa 2gm daily. Assessment & Plan (12/18/2022 10:13 AM SIGN ARTIST): Chronic problem. Currently taking Simvastatin 40mg & vascepa 2gm daily. Assessment & Plan (07/01/2022 9:45 AM CDT): Chronic problem. Improved on current Simvastatin 40mg & vascepa 2gm bid. Last lipid panel: 05/07/21 LDL=24, XE=999. Will update labs today. Verified that he uses [employer]. Aware to check results/results letter in [employer]. Will contact by phone if needed. Assessment [...] Vascepa Assessment & Plan (01/26/2020 10:19 AM SIGN ARTIST): He will have lipid panel done in [...] therapy. Assessment & Plan (03/20/2019 11:11 AM SIGN ARTIST): Trigs elevated. Focus on diet, exercise and [...] Will update labs. Verified that he uses [employer]. Aware to check results/results letter in [employer]. Will contact by phone if needed. UTD [...] infection. Assessment & Plan (01/25/2024 3:39 PM SIGN ARTIST): Chronic problem. A1c at goal but tim [...] infection. Assessment & Plan (12/18/2022 10:13 AM SIGN ARTIST): Chronic problem. A1c tim from 6.5% to [...] well controlled. Would like to switch from [employer] to [employer]. To send [employer] message or call when he starts last [...] weekly Assessment & Plan (03/06/2020 3:45 PM SIGN ARTIST): Will send rx for U500 vial to local pharmacy. 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 Return [...] 6 Assessment & Plan (01/26/2020 3:35 PM SIGN ARTIST): A1c 9.1 worsening. Basal > bolus. There [...] summer. Assessment & Plan (03/20/2019 11:13 AM SIGN ARTIST): A1c 9.1. No change. Not being attentive to types of food eating, not as much exercise recently. Not bolusing for all carbs so difficult to determine exact pattern. Education provided to bolus for all carbs, BG at least tid. Will adjust bolus settings. Assessment & Plan (01/17/2019 4:19 PM SIGN ARTIST): Demonstrates appropriate ability to fill and insert infusion set. Understands concepts of basal vs. Bolus and is able to enter BG and carbs into pump. Has been provided with contact information for insulin pump fundraising sale representative and how to reach our office [...] help improve glycemic control. Advised to contact [employer] today for new transmitter. Will await CGM [...] discussed. 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 Currently taking Lisinopril 40mg daily, amlodipine 10mg daily & HCTZ 12.5mg daily No changes at this time. Will update labs. Verified that he uses [employer]. Aware to check results/results letter in [employer]. Will contact by phone if needed. Assessment & Plan (01/25/2024 3:18 PM SIGN ARTIST): Chronic problem. Currently taking Lisinopril 40mg daily, [...] time. Assessment & Plan (12/18/2022 10:07 AM SIGN ARTIST): Chronic problem. Elevated initially but returned to [...] update labs today. Verified that he uses [employer]. Aware to check results/results letter in [employer]. Will contact by phone if needed. Assessment [...] plan Assessment & Plan (03/20/2019 11:10 AM SIGN ARTIST): Controlled on current medications. Continue plan. Assessment [...] ARB Assessment & Plan (03/10/2017 3:02 PM SIGN ARTIST): Goal blood pressure is less than 140/85 [...] medications. Assessment & Plan (03/10/2017 3:02 PM SIGN ARTIST): Goal of treatment , LDL cholesterol less [...] Department Care Team Description 05/23/2024 Orders Only [facility] Diabetes and Endocrinology [address] [place] [phone] Prudence Medellin NP Type 2 diabetes mellitus with hyperglycemia, with long-term current use of insulin (HCC) (Primary Dx) 05/20/2024 Results Follow-Up [facility] Diabetes and Endocrinology [address] [place] [phone] Prudence Medellin NP 05/18/2024 10:15 AM CDT Lab [facility] Outpatient Lab at [address] [address] Hypertension associated with diabetes (HCC) (Primary Dx); Type 2 diabetes mellitus with hyperglycemia, with long-term current use of insulin (HCC) 05/18/2024 10:13 AM CDT - 05/18/2024 11:59 PM CDT Hospital Encounter [address] [address] Type 2 diabetes mellitus with hyperglycemia, with long-term current use of insulin (HCC); Hyperlipidemia associated with type 2 diabetes mellitus (HCC); Hypertension associated with diabetes (HCC) Discharge Disposition: Discharge to home or self care 05/18/2024 9:30 AM CDT Office Visit [facility] Diabetes and Endocrinology [address] [place] [phone] Prudence Medellin, RENZO Type 2 diabetes mellitus with hyperglycemia, with long-term current use of insulin (HCC) (Primary Dx); Hypertension associated with diabetes (HCC); Hyperlipidemia associated with type 2 diabetes mellitus (HCC); Insulin pump status 03/29/2024 [facility]phone [facility] [id number] [place] [address] [address] [address] Verna Quiles MD from Last [...] on file Legal Sex Male 12:27 AM SIGN ARTIST Gender Identity Not on file Sexual Orientation [...] DIABETES EYE EXAM Routine 04/17/2023 10:36 AM SIGN ARTIST PSA, TOTAL Routine 06/18/2022 8:04 AM CDT [...] CDT 05/18/2024 7:19 PM CDT Prudence Medellin CONE EXAMINER LAB BLOOD ORDERABLES Minna l Result Performing Organization Address [facility] de Phone Number ARLENE PADILLA [address] [address] [place] [address] * (ABNORMAL) Albumin Creatinine Ratio, Urine (05/18/2024 10:13 AM CDT) Albumin Ur 267.3 mg/L Comment: Interpretive Data No reference range established. Current interpretive data was last revised 2018. Creatinine Ur 53.2 mg/dL [facility] Comment: Interpretive Data No reference range established. Current interpretive data was last revised 2018. Albumin Creatinine Ratio, Ur 502(H) 1 - 29 mg/g [facility] Urine 05/18/2024 10:1 3 AM CDT 05/18/2024 7:16 PM CDT us Prudence Medellin CONE EXAMINER LAB URINE ORDERABLES Minna l Result Performing Organization Address [facility] de Phone Number MARLINEJW [address] [address] [place] [address] * (ABNORMAL) Lipid panel (05/18/2024 10:13 AM [...] 05/18/2024 7:16 PM CDT us Prudence Medellin CONE EXAMINER LAB BLOOD ORDERABLES [facility] Result [facility] [address] [address] [place] [address] * (ABNORMAL) Comprehensive metabolic panel [...] LAB BLOOD ORDERABLES Minna l Result ARLENE [address] [address] [place] [address] * (ABNORMAL) POCT hemoglobin A1c [...] (ABNORMAL) DIABETES EYE EXAM (04/17/2023 10:36 AM SIGN ARTIST) Historical Provider HEALTH MAINTENANCE Final Result * PSA, total Blood (06/18/2022 8:04 AM CDT) SCRIBED PSA, Total 0.95 <=4.00 - NA EXTERNAL LAB Blood 06/18/2022 8:04 AM CDT Historical Provider LAB BLOOD ORDERABLES Edit ed Result - Final EXTERNAL LAB from Last 3 Months or Most Recently Relevant to Health Maintenance Insurance UHC MEDICARE ADVANTAGE [facility] MEDICARE ADVANTAGE Care Teams Manager Of Housekeeping Relationship Specialty Start Date End Date Myles Osorio MD [address] [facility] [address] [place] [id number] PCP - General 05/09/16
--- OUTSIDE RECORDS SUMMARY | 2024-05-27 00:26 | XMS_ITS | Clinical Summary ---
Author Organization [facility] Address [address] [place] [address] Care Team Providers Care Wildlife Biology Technician Name Role Phone Myles Osorio MD Primary Care Provider [phone] Allergies No known active allergies Medications Continuous [...] Type Department Care Team Description 05/23/2024 Telephone [facility] Orthopedic Surgery [facility] [address] [facility] [address] [place] [address] Kiko Sarah DO Follow Up Call 05/21/2024 12:16 PM CDT - 05/21/2024 1:58 PM CDT Emergency [facility] Emergency Room [address] [place] [address] MD Ankle Injury (Right) Discharge [...] 12/11/2021, 12/07/2020, Additional history exists PHQ-2 (Physician [place]) 02/10/2024 DTaP, Tdap and Td Vaccines (2 [...] this topic Medical Devices Implanted Type Area Montessori Program Director Device Identifier Shelf Expiration Date Model / [...] 12:59 PM Narrative 05/21/2024 1:00 PM [address]T [address] [place] [address] 2 VIEWS OF THE RIGHT ANKLE Clinical History: Pain Comparison: None Findin views of the right ankle demonstrate the bony elements to be intact. There is no evidence of fracture or dislocation. The ankle mortise is symmetric. The surrounding soft tissues appear normal. Procedure Note Solis Duque MD - 05/21/[address] [facility] [place] [address] 2 VIEWS OF THE RIGHT ANKLE Clinical [...] 1:00 PM Narrative 05/21/2024 1:00 PM CDT [address] [place] [address] 2 VIEWS OF THE RIGHT LOWER LEG Clinical History: Injury, pain Comparison: None 2 views of the right lower leg demonstrate a nondisplaced oblique fracture of the proximal fibula. The tibia appears intact. The surrounding soft tissues appear normal Procedure Note Solis Duque MD - 05/21/[address] [place] [address] 2 VIEWS OF THE RIGHT LOWER LEG [...] Last 3 Months Insurance UHC Care Teams Wildlife Biology Technician Relationship Specialty Start Date End Date Myles Osorio MD [address] [place] [address] PCP - General INTERNAL MEDICINE 01/17/20
--- OUTSIDE RECORDS SUMMARY | 2024-05-27 00:26 | XMS_ITS | Encounter Summary ---
Author Organization [facility] Address [address] 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 Name Role Phone Myles Osorio MD Primary Care Provider [phone] Myles Osorio MD Primary Care Provider [phone] Encounter Details Date Type Department Care Team (Late st Contact Info) Description 04/25/2016 Orders Only [facility] ProviderLotus MD [address] [place] [id number] Social History Tobacco Use Types Packs/Day Years Used Date Smoking Tobacco: Former Alcohol Use Standard Drinks/Week Comments Yes 0 (1 standard drink = 0.6 oz pur e alcohol) Sex and Gender Information Value Date Recorded Sex Assigned at Not on file 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
--- OUTSIDE RECORDS SUMMARY | 2024-05-27 00:26 | XMS_ITS | Encounter Summary ---
Author Organization [facility] Address Count includes the [facility] [place] [address] Care Team Providers Care Linux Unix Administrator Name Role Phone Myles Osorio MD Primary Care Provider [phone] Encounter Details Date Type Department Care Team (Late st Contact Info) Description 03/21/2020 Prep for Procedure [facility] [address] [place], [place] [id number] Cristino Cox MD [address] [facility], [address] [place], [place] [id number] Social History Tobacco Use Types Packs/Day Years [...] COVID-19? 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 documented as of this encounter Plan of Treatment Not on file documented as of this encounter Results * PRE-SURGICAL/PRE-PROCEDURE CORONAVIRUS (COVID 19) (03/25/2020 8:57 AM TITLE ONE KINDERGARTEN TEACHER) CORONAVIRUS SARS COV 2 PCR (RESP) NOT DETECTED NOT DETECTED 03/26/2020 2:31 PM TITLE ONE KINDERGARTEN TEACHER [facility] Comment: A Not Detected (negative) test result [...] providers and patients using the following websites: https://www.ProPlan.Localytics/home/Covid-19/HCP/NAAT/fact-sheet2 https://www.[employer].Localytics/home/Covid-19/Patients/NAAT/ fact-sheet2 This test has been authorized by the FDA under an Emergency Use Authorization (EUA) for use by authorized laboratories. Due to the current public health emergency, [facility] is receiving a high volume of samples [...] about COVID-19 can be found at the [facility] website: www.Dryad.Localytics/Covid19. Test performed at [facility] [address] [place] [address] Director: BALAJI THURSTON DO,MPH FIRST TEST NO 03/25/2020 8:49 AM [facility] EMPLOYED IN HEALTHCARE NO 03/25/2020 8:49 AM [facility] SYMPTOMATIC DEFINED BY CDC NO 03/25/2020 8:49 AM [facility] DATE OF SYMPTOM ONSET UNKNOWN 03/25/2020 9:48 AM TITLE ONE KINDERGARTEN TEACHER [facility] HOSPITALIZATION STATUS NO 03/25/2020 8:49 AM TITLE ONE KINDERGARTEN TEACHER [facility] PATIENT IN ICU NO 03/25/2020 8:49 AM TITLE ONE KINDERGARTEN TEACHER [facility] RESIDENT OF [facility] CARE NO 03/25/2020 8:49 AM TITLE ONE KINDERGARTEN TEACHER [facility] NO 03/25/2020 9:48 AM TITLE ONE KINDERGARTEN TEACHER [facility] PATIENT'S RACE WHITE OR 03/25/2020 8:49 AM TITLE ONE KINDERGARTEN TEACHER [facility] ETHNICITY NONHISPANIC 03/25/2020 8:49 AM TITLE ONE KINDERGARTEN TEACHER [facility] SOURCE (QST) NASOPHARYNGEAL SWAB 03/25/2020 8:49 AM TITLE ONE KINDERGARTEN TEACHER [facility] NASOPHARYNGEAL SWAB / Unknown 03/25/2020 8:57 AM TITLE ONE KINDERGARTEN TEACHER us Cristino Cox MD MICROBIOLOGY - GENERAL ORDERABLE S Final Result Performing Organization Address City/State/[facility] de Phone Number [facility] [address] [place] [address], [facility] [id number] [place] [address], documented in this encounter Visit Diagnoses Diagnosis Pre-op testing- Primary Preoperative examination, unspecified documented in this encounter Additional Health Concerns Infection Onset Date Last Indicated Resolved Time COVID-19 Rule Out 03/25/2020 03/25/2020 03/26/2020 2:31 PM TITLE ONE KINDERGARTEN TEACHER documented as of this encounter Care Teams Linux Unix Administrator Relationship Specialty Start Date End Date Myles Osorio MD [address] [place] [address] PCP - General INTERNAL MEDICINE 01/17/20 documented as of this encounter
--- NOTE | 2024-05-27 11:35 | WPDANESEPPF ---
Anes - Initial Pre Proc Eval Procedure: Operation Date: 05/27/24 14:00 Proposed Procedures p Open Reduction Internal Fixation of Right Ankle Fracture - Robert Duffy MD Date/Time: 05/27/24 11:35 Surgeon: Robert Duffy MD Pre Op Diagnosis: right ankle fracture Patient Data Age: 68 Gender: M Height: 1.75 m Weight: 107.05 kg Allergies Allergy/AdvReac Type Severity Reaction Status Date / Time No Known Allergies Allergy Verified 05/27/24 13:43 Home Medications ?Medication ?Instructions ?Recorded ?Confirmed ?Type aspirin 81 mg tablet,delayed 81 mg PO DAILY 02/01/19 05/27/24 History release (Adult Low Dose Aspirin) hydrochlorothiazide 12.5 mg tablet 12.5 mg PO DAILY 02/01/19 05/25/24 History icosapent ethyl 1 gram capsule 1 gm PO BID 02/01/19 05/25/24 History (Vascepa) lisinopril 40 mg tablet 40 mg PO DAILY 02/01/19 05/25/24 History metformin 500 mg tablet 1,000 mg PO BID 02/01/19 05/25/24 History simvastatin 40 mg tablet 40 mg PO DAILY 02/01/19 05/25/24 History dapagliflozin propanediol 10 mg 10 mg PO DAILY 09/06/21 05/25/24 History tablet (Farxiga) nabumetone 750 mg tablet 750 mg PO BID #90 tabs 04/14/22 05/25/24 Rx insulin regular hum U-500 conc 500 See Rx Instructions subcut ONCE 04/29/23 05/27/24 History unit/mL subcutaneous soln (Humulin R U-500 (Concentrated) Insulin) tirzepatide 5 mg/0.5 mL 5 mg subcut WEEKLY 04/29/23 05/25/24 History subcutaneous pen injector (Mounjaro) amlodipine 10 mg tablet 10 mg PO DAILY #90 tabs 08/07/23 05/25/24 Rx methocarbamol 750 mg tablet 750 mg PO TID PRN muscle spasm #45 11/18/23 05/25/24 Rx tabs lorazepam 0.5 mg tablet 0.5 mg PO DAILY PRN anxiety #10 11/19/23 05/25/24 Rx tabs allopurinol 300 mg tablet 300 mg PO DAILY #90 tabs 12/30/23 05/25/24 Rx pantoprazole 40 mg tablet,delayed 40 mg PO QAM #90 tabs 12/30/23 05/25/24 Rx release humalog insulin pump 05/12/24 05/27/24 History Patient hx anesthesia problems: none Family hx anesthesia problems: none Results Review: All pre-operative results and documents have been reviewed as part of the pre-operative evaluation. [facility] Past Medical History Medical History Essential (primary) hypertension Gastro-esophageal reflux disease without esophagitis Obstructive sleep apnea (~2014) Other hyperlipidemia Sleep apnea in adult Family History Family History Father Cerebrovascular accident Family history of diabetes mellitus in first degree relative Family history of heart disease in male family member before age 55 Mother Family history of diabetes mellitus in first degree relative Other Hypertension Social History Social History Smoking packs per day: 1 Smoking cigarettes per day: 20.0 Years smoked: 30 Smoking pack-years: 30.00 Smoking status: Former smoker Tobacco type: cigarettes Second hand tobacco smoke exposure: No Smoking end date: 02/09/89 Alcohol intake: current Substance use: former Substance use type: marijuana Last use: LAST YEAR Lack of Transportation: No Lack of Food: Never True Current Housing: I Have Housing Concerned About Future Housing: No Difficulty Paying Gas/Electric Bills: No Difficulty Paying for Meds: No Currently Unemployed: No Education: Trade/Vocational Certificate Difficulty w/ Childcare or Family Care: No Living arrangements: with family Spiritual care concerns: No Anes - Eval Final PreProcedure Day of Procedure 05/27/24 11:35 Patient weight: obese Heart: regular rate and rhythm Lungs: clear to auscultation Airway: Mallampati scale Neurological: alert and oriented Last oral intake: >/= 8 hours ASA classification: III Emergent: no Anesthetic plan: proceed Anesthesia type and monitoring: general and standard monitoring Results Review: All pre-operative results and documents have been reviewed as part of the pre-operative evaluation. Informed Consent: The patient's anesthetic plan and its attendant risks and benefits were discussed with the patient/family/POA. Questions were solicited and answers provided to the satisfaction of the patient/family/POA.
[2024-05-27 12:44] LABS: Glucose Point of Care 117 mg/dl (65-105)
[2024-05-27] MEDS: LACTATED RINGERS 1,000 ML 30 ML IV CONT (13:00)
[2024-05-27] MEDS: ACETAMINOPHEN 500 MG TABLET 1000 MG PO (13:06)
[2024-05-27] MEDS: KETOROLAC 15 MG/ML VIAL (*BKC) IV PUSH (13:06)
--- NOTE | 2024-05-27 14:00 | P.HPUP_ITS ---
History and Physical Update Update Date/Time: 05/27/24 14:00 History and Physical has been reviewed, including an updated exam of the patient. There are NO changes in the patient's condition. Risks, benefits, and alternatives have been discussed and questions answered. Patient agrees to proceed with procedure. Right Ankle Open Reduction Internal Fixation ORIF for Syndesmotic Injury The patient is a penitentiary IDDM patient with a higher risk for post op infection. He and his Tina understand and are willing to proceed.
--- NOTE | 2024-05-27 14:01 | P.HP_ITS ---
H&P: HPI History of Present Illness Date/Time: 05/27/24 14:01 Chief Complaint: Right ankle pain and swelling [facility] Past Medical History Medical History Essential (primary) hypertension Gastro-esophageal reflux disease without esophagitis Obstructive sleep apnea (~2014) Other hyperlipidemia Sleep apnea in adult Family History Family History Father Cerebrovascular accident Family history of diabetes mellitus in first degree relative Family history of heart disease in male family member before age 55 Mother Family history of diabetes mellitus in first degree relative Other Hypertension Social History Social History Smoking packs per day: 1 Smoking cigarettes per day: 20.0 Years smoked: 30 Smoking pack-years: 30.00 Smoking status: Former smoker Tobacco type: cigarettes Second hand tobacco smoke exposure: No Smoking end date: 02/09/89 Alcohol intake: current Substance use: former Substance use type: marijuana Last use: LAST YEAR Lack of Transportation: No Lack of Food: Never True Current Housing: I Have Housing Concerned About Future Housing: No Difficulty Paying Gas/Electric Bills: No Difficulty Paying for Meds: No Currently Unemployed: No Education: Trade/Vocational Certificate Difficulty w/ Childcare or Family Care: No Living arrangements: with family Spiritual care concerns: No Meds Home Medications and Allergies Home Medications ?Medication ?Instructions ?Recorded ?Confirmed ?Type aspirin 81 mg tablet,delayed 81 mg PO DAILY 02/01/19 05/27/24 History release (Adult Low Dose Aspirin) hydrochlorothiazide 12.5 mg tablet 12.5 mg PO DAILY 02/01/19 05/25/24 History icosapent ethyl 1 gram capsule 1 gm PO BID 02/01/19 05/25/24 History (Vascepa) lisinopril 40 mg tablet 40 mg PO DAILY 02/01/19 05/25/24 History metformin 500 mg tablet 1,000 mg PO BID 02/01/19 05/25/24 History simvastatin 40 mg tablet 40 mg PO DAILY 02/01/19 05/25/24 History dapagliflozin propanediol 10 mg 10 mg PO DAILY 09/06/21 05/25/24 History tablet (Farxiga) nabumetone 750 mg tablet 750 mg PO BID #90 tabs 04/14/22 05/25/24 Rx insulin regular hum U-500 conc 500 See Rx Instructions subcut ONCE 04/29/23 05/27/24 History unit/mL subcutaneous soln (Humulin R U-500 (Concentrated) Insulin) tirzepatide 5 mg/0.5 mL 5 mg subcut WEEKLY 04/29/23 05/25/24 History subcutaneous pen injector (Mounjaro) amlodipine 10 mg tablet 10 mg PO DAILY #90 tabs 08/07/23 05/25/24 Rx methocarbamol 750 mg tablet 750 mg PO TID PRN muscle spasm #45 11/18/23 05/25/24 Rx tabs lorazepam 0.5 mg tablet 0.5 mg PO DAILY PRN anxiety #10 11/19/23 05/25/24 Rx tabs allopurinol 300 mg tablet 300 mg PO DAILY #90 tabs 12/30/23 05/25/24 Rx pantoprazole 40 mg tablet,delayed 40 mg PO QAM #90 tabs 12/30/23 05/25/24 Rx release humalog insulin pump 05/12/24 05/27/24 History Allergies Allergy/AdvReac Type Severity Reaction Status Date / Time No Known Allergies Allergy Verified 05/27/24 13:43 Vital Signs Vital Signs - 24 hr 05/27/24 13:00 Temperature 36.6 C Pulse Rate 99 Respiratory Rate 16 Blood Pressure 152/61 H Pulse Oximetry 100 Exam Narrative: Exam of the patient's right lower extremity shows that he has significant swelling and tenderness over the medial malleolus area in the area of the deltoid ligament and he also has significant tenderness to palpation over the proximal 3rd of the fibula. He also has some redness over the mid aspect of his leg that may be early cellulitis. He has good sensation to this extremity he has good EHL function. Assessment and Plan Assessment and plan (1) Closed right ankle fracture: Qualifiers: Encounter type: initial encounter Qualified Code(s): S82.891A - Other fracture of right lower leg, initial encounter for closed fracture Code(s): S82.891A - Other fracture of right lower leg, initial encounter for closed fracture Status: Acute Plan This is a 68-year-old insulin-dependent diabetic patient with a [place]eneuve injury to the right lower extremity. He is a higher risk of infection complications after surgery. Him and his understand this his is here today with him today and name is Tina. Plan is for open reduction internal fixation. We will remove the hardware in about 3 months time. Patient was also advised of this plan.
--- NOTE | 2024-05-27 14:05 | PM.IMHP ---
H&P: HPI History of Present Illness Date/Time: 05/27/24 14:05 Chief Complaint: Right ankle fracture [facility] Past Medical History Medical History Essential (primary) hypertension Gastro-esophageal reflux disease without esophagitis Obstructive sleep apnea (~2014) Other hyperlipidemia Sleep apnea in adult Family History Family History Father Cerebrovascular accident Family history of diabetes mellitus in first degree relative Family history of heart disease in male family member before age 55 Mother Family history of diabetes mellitus in first degree relative Other Hypertension Social History Social History Smoking packs per day: 1 Smoking cigarettes per day: 20.0 Years smoked: 30 Smoking pack-years: 30.00 Smoking status: Former smoker Tobacco type: cigarettes Second hand tobacco smoke exposure: No Smoking end date: 02/09/89 Alcohol intake: current Substance use: former Substance use type: marijuana Last use: LAST YEAR Lack of Transportation: No Lack of Food: Never True Current Housing: I Have Housing Concerned About Future Housing: No Difficulty Paying Gas/Electric Bills: No Difficulty Paying for Meds: No Currently Unemployed: No Education: Trade/Vocational Certificate Difficulty w/ Childcare or Family Care: No Living arrangements: with family Spiritual care concerns: No Meds Home Medications and Allergies Home Medications ?Medication ?Instructions ?Recorded ?Confirmed ?Type aspirin 81 mg tablet,delayed 81 mg PO DAILY 02/01/19 05/27/24 History release (Adult Low Dose Aspirin) hydrochlorothiazide 12.5 mg tablet 12.5 mg PO DAILY 02/01/19 05/25/24 History icosapent ethyl 1 gram capsule 1 gm PO BID 02/01/19 05/25/24 History (Vascepa) lisinopril 40 mg tablet 40 mg PO DAILY 02/01/19 05/25/24 History metformin 500 mg tablet 1,000 mg PO BID 02/01/19 05/25/24 History simvastatin 40 mg tablet 40 mg PO DAILY 02/01/19 05/25/24 History dapagliflozin propanediol 10 mg 10 mg PO DAILY 09/06/21 05/25/24 History tablet (Farxiga) nabumetone 750 mg tablet 750 mg PO BID #90 tabs 04/14/22 05/25/24 Rx insulin regular hum U-500 conc 500 See Rx Instructions subcut ONCE 04/29/23 05/27/24 History unit/mL subcutaneous soln (Humulin R U-500 (Concentrated) Insulin) tirzepatide 5 mg/0.5 mL 5 mg subcut WEEKLY 04/29/23 05/25/24 History subcutaneous pen injector (Mounjaro) amlodipine 10 mg tablet 10 mg PO DAILY #90 tabs 08/07/23 05/25/24 Rx methocarbamol 750 mg tablet 750 mg PO TID PRN muscle spasm #45 11/18/23 05/25/24 Rx tabs lorazepam 0.5 mg tablet 0.5 mg PO DAILY PRN anxiety #10 11/19/23 05/25/24 Rx tabs allopurinol 300 mg tablet 300 mg PO DAILY #90 tabs 12/30/23 05/25/24 Rx pantoprazole 40 mg tablet,delayed 40 mg PO QAM #90 tabs 12/30/23 05/25/24 Rx release humalog insulin pump 05/12/24 05/27/24 History Allergies Allergy/AdvReac Type Severity Reaction Status Date / Time No Known Allergies Allergy Verified 05/27/24 13:43 Vital Signs Vital Signs - 24 hr 05/27/24 13:00 Temperature 36.6 C Pulse Rate 99 Respiratory Rate 16 Blood Pressure 152/61 H Pulse Oximetry 100 Exam Narrative: Exam of the patient's right lower extremity shows that he has significant swelling and tenderness over the medial malleolus area in the area of the deltoid ligament and he also has significant tenderness to palpation over the proximal 3rd of the fibula. He also has some redness over the mid aspect of his leg that may be early cellulitis. He has good sensation to this extremity he has good EHL function.
[2024-05-27] MEDS: LIDO 1%/EPINEPHRINE 1:100,000 50 ML VIAL 20 ML INFILTRATE (14:10)
[2024-05-27] MEDS: ceFAZolin 2 GM/D5W 50 ML 2 GM/50 ML BAG IVPB (14:10)
[2024-05-27] MEDS: ceFAZolin SODIUM 1 GM VIAL IM (15:03)
--- NOTE | 2024-05-27 15:33 | W.PM.PROC2 ---
Procedure Note - Detailed Date of Procedure 05/27/24 Pre-op Diagnosis right ankle fracture with proximal 3rd fibular fracture and syndesmotic injury Post-op Diagnosis Same Procedure Performed Right ankle open reduction internal fixation of syndesmotic injury Short-leg posterior splint application Surgeon Robert Duffy MD Anesthesia General Indications Unstable right ankle syndesmotic injury Findings Unstable right ankle syndesmotic injury with widening of the medial joint space on stress testing with fluoroscopy Description of Procedure After obtaining consent with regard to the risks benefits alternatives and complications of this procedure which include but not limited to infection nerve or blood vessel injury DVT nonunion malunion posttraumatic arthritis as well as possible hardware irritation the patient and his agree to proceed The patient was then brought to the operating room placed in a supine position which time he underwent general anesthesia. The right lower extremity was then prepped and draped in standard sterile fashion. A time-out was performed to verify correct extremity with my initials also correct patient correct type of surgery correct site of surgery and the fact that 2 g of Ancef were administered IV within 1 hours procedure. Fluoroscopy was then used to verify the instability ankle by placing a valgus stress to the ankle and it was notable that there was widening of the medial joint space. An incision was then made on the lateral aspect of the patient's right ankle which time a 4 hole plate was placed and aligned correctly and 2 syndesmotic screws were placed at 30 degree orientation to the sagittal. Rescue was then used to verify good positioning and then also fluoroscopy was then used postprocedure to verify stability ankle on stress testing at which time it was noted that the medial joint space did not widen on stress testing compared to prior to fixation. Two screws were then placed and 1 4 hole plate was placed in the lateral aspect patient's right ankle. After this was done I then injected 1% lidocaine with epinephrine into the subcutaneous tissues I then closed the dermal layer using 2-0 Vicryl suture interrupted I then closed the skin layer using a running interlocking continuous suture with 2-0 nylon suture. The placement was then paid placed in a posterior splint. Patient was then transferred to the recovery room in stable condition. I will see him back in 1 week. He will be strict nonweightbearing on this extremity. He is to take Keflex postoperatively for infection. He is also to take enteric-coated aspirin 325 mg daily for 2 weeks. His was instructed of this. The Keflex was called in to her local pharmacy.
[2024-05-27 16:04] LABS: Glucose Point of Care 121 mg/dl (65-105)
[2024-05-27] MEDS: oxyCODONE HCL (*CRX) 5 MG TAB IR PO (17:07)
== END 2024-05-27 17:33 | disposition home or self-care (01) ==
PROVIDERS: PCP Nurse Practitioner; Visit Provider Orthopaedic Surgery
PROC: (CPT 27829; principal; 2024-05-27 14:00)
DX: S82.891A Other fracture of right lower leg, initial encounter for closed fracture (principal); S93.431A Sprain of tibiofibular ligament of right ankle, initial encounter; X58.XXXA Exposure to other specified factors, initial encounter; I10 Essential (primary) hypertension; E78.49 Other hyperlipidemia; G47.33 Obstructive sleep apnea (adult) (pediatric); K21.9 Gastro-esophageal reflux disease without esophagitis; Z79.84 Long term (current) use of oral hypoglycemic drugs; Z79.4 Long term (current) use of insulin; Z79.85 Long-term (current) use of injectable non-insulin antidiabetic drugs; Z79.899 Other long term (current) drug therapy; Z87.891 Personal history of nicotine dependence
CPT/HCPCS: 27829; 82948; 99199; A9270; J0690; J1100; J1885; J2003; J2004; J2250; J2405; J2704; J3010; J7120